=== PATIENT | male | born 1945 | race Caucasian/White ===

== ENCOUNTER 2017-12-21 10:37 | Outpatient (RCR) | payer MEDICARE, OTHER, SELFPAY ==
[2017-11-22 09:16] LABS: Prothrombin Time Fingerstick 38.9 SEC (11.9-14.4)
[2017-12-07 09:51] LABS: Prothrombin Time Fingerstick 48.5 SEC (11.9-14.4)
[2017-12-07 12:18] LABS: International Normalized Ratio 3.4; Prothrombin Time (Protime)PT. 33.1 SECONDS (11.7-14.9)
[2017-12-21 12:14] LABS: International Normalized Ratio 2.9; Prothrombin Time (Protime)PT. 29.5 SECONDS (11.7-14.9)
== END 2017-12-21 11:00 | disposition home or self-care (01) ==
LOC: MTLAB 10:37
PROVIDERS: Family Provider Family Medicine; PCP Family Medicine; Visit Provider Internal Medicine Cardiovascular Disease
DX: Z79.01 Long term (current) use of anticoagulants (principal); Z95.2 Presence of prosthetic heart valve
CPT/HCPCS: 36415; 36416; 85610

== ENCOUNTER 2018-01-10 09:26 | Outpatient (RCR) | payer MEDICARE, OTHER, SELFPAY ==
[2018-01-10 12:20] LABS: International Normalized Ratio 2.8; Prothrombin Time (Protime)PT. 28.4 SECONDS (11.7-14.9)
== END 2018-01-10 15:00 | disposition home or self-care (01) ==
LOC: MTLAB 09:26
PROVIDERS: Family Provider Family Medicine; PCP Family Medicine; Visit Provider Internal Medicine Cardiovascular Disease
DX: Z79.01 Long term (current) use of anticoagulants (principal)
CPT/HCPCS: 36415; 85610

== ENCOUNTER 2018-01-28 22:32 | Emergency (ER) | payer MEDICARE, OTHER, SELFPAY ==
[2018-01-28 22:33] VITALS: BP 149/77; PULSE 56; RESP 16; TEMP 36.9; O2SAT 98; BMI 24.3
[2018-01-28] MEDS: Phenylephrine 0.25% 15 ML NASAL.SRY 2 SPRAY NS (22:54)
--- NOTE | 2018-01-28 23:20 | ED.VISSUMM ---
- ER Visit Summary Date of Service: 01/28/18 Chief Complaint: Bleeding tongue History of Present Illness: The patient is a 72 M who bit his tongue about an hour prior to arrival. He is on Coumadin for an artificial heart valve. His last INR was 2.7 earlier this month. They could not get the bleeding to stop at home. He denies any pain Physical Examination: Signs are reviewed. HEENT exam reveals oozing of blood from the right distal tongue. Test Results: None obtained Emergency Department Course and Treatment: Initial pressure was held on the tongue. It was still oozing some blood so phenylephrine was then applied to gauze and placed on the time. It does look better. He is still oozing a mild amount. Patient will be discharged to use ice as well as teabags at home. He will follow-up with his PCP Treatment Plan: Disposition: Discharge Impression: Bleeding tongue This note was generated with [employer] dictation software. It may contain incorrect words, spelling, and punctuation that were not noted in review of the chart prior to signing ED Disposition - Plan for ED Patient: Chief Complaint: Other, Pain/Inj Referrals: Kameron Hayes MD [Primary Care Provider] -
--- NOTE | 2018-01-28 23:22 | ED.DEP ---
ED Disposition - Plan for ED Patient: Disposition: Home or Assisted Living Chief Complaint: Other, Pain/Inj Instructions: Taking?Coumadin Referrals: Kameron Hayes MD [Primary Care Provider] - Additional Instructions: Use ice as well as tea bags on the area to help stop bleeding
--- NOTE | 2018-01-28 23:49 | ED.RN ---
DISCHARGE INSTRUCTIONS GIVEN TO AND REVIEWED WITH PATIENT, PATIENT DENIES QUESTIONS OR CONCERNS AND VOICES UNDERSTANDING OF DISCHARGE INSTRUCTIONS. PT AMBULATES OUT OF ROOM WITHOUT DIFFICULTY.
== END 2018-01-28 23:49 | disposition home or self-care (01) ==
PROVIDERS: Emergency Provider Emergency Medicine; Family Provider Family Medicine; PCP Family Medicine
DX: R58 Hemorrhage, not elsewhere classified (principal); Z95.2 Presence of prosthetic heart valve; Z79.01 Long term (current) use of anticoagulants; I10 Essential (primary) hypertension; E78.00 Pure hypercholesterolemia, unspecified; K21.9 Gastro-esophageal reflux disease without esophagitis
CPT/HCPCS: 99282

== ENCOUNTER 2018-02-07 08:48 | Outpatient (RCR) | payer MEDICARE, OTHER, SELFPAY ==
[2018-02-07 10:39] LABS: International Normalized Ratio 2.6; Prothrombin Time (Protime)PT. 28.2 SECONDS (11.7-14.9)
== END 2018-02-07 09:00 | disposition home or self-care (01) ==
LOC: MTLAB 08:48
PROVIDERS: Family Provider Family Medicine; PCP Family Medicine; Visit Provider Internal Medicine Cardiovascular Disease
DX: Z79.01 Long term (current) use of anticoagulants (principal); Z95.2 Presence of prosthetic heart valve
CPT/HCPCS: 36415; 85610

== ENCOUNTER 2018-03-07 09:31 | Outpatient (RCR) | payer MEDICARE, OTHER, SELFPAY ==
[2018-03-07 12:22] LABS: International Normalized Ratio 2.6; Prothrombin Time (Protime)PT. 28.2 SECONDS (11.7-14.9)
== END 2018-03-07 10:00 | disposition home or self-care (01) ==
LOC: MTLAB 09:31
PROVIDERS: Family Provider Family Medicine; PCP Family Medicine; Visit Provider Internal Medicine Cardiovascular Disease
DX: Z79.01 Long term (current) use of anticoagulants (principal); Z95.2 Presence of prosthetic heart valve
CPT/HCPCS: 36415; 85610

== ENCOUNTER 2018-04-04 09:30 | Outpatient (RCR) | payer MEDICARE, OTHER, SELFPAY ==
[2018-04-04 12:45] LABS: Prothrombin Time (Protime)PT. 31.5 SECONDS (11.7-14.9)
== END 2018-04-04 10:00 | disposition home or self-care (01) ==
LOC: MTLAB 09:30
PROVIDERS: Family Provider Family Medicine; PCP Family Medicine; Visit Provider Internal Medicine Cardiovascular Disease
DX: Z79.01 Long term (current) use of anticoagulants (principal); Z95.2 Presence of prosthetic heart valve
CPT/HCPCS: 36415; 85610

== ENCOUNTER → 2018-05-03 09:22 | Outpatient (CLI) | payer MEDICARE, OTHER, SELFPAY ==
[2018-05-03 10:54] LABS: International Normalized Ratio 2.7; Prothrombin Time (Protime)PT. 28.6 SECONDS (11.7-14.9)
[2018-05-03 11:11] LABS: AST(SGOT) 37 U/L (15-37); Alanine Aminotransfer ALT/SGPT 32 U/L (16-61); Albumin, Serum 3.5 g/dL (3.2-5.0); Alkaline Phosphatase 69 U/L (45-117); Anion Gap 7 (5-15); BUN 19 mg/dL (7-18); BUN/Creat Ratio 16.7 RATIO (10-20); Calcium,Total 8.8 mg/dL (8.5-10.1); Chloride 106 mmol/L (98-107); Cholesterol 155 mg/dL (200); Creatinine, Serum 1.14 mg/dL (0.70-1.30); EST Glomerular Filtration Rate 67 mL/min (>60); Est Glom Filt Rate - Afr Amer 81 mL/min (>60); Globulin 3.7 g/dL (2.2-4.2); Glucose 85 mg/dL (74-106); High Density Lipoprotein 39 mg/dL; Potassium 4.5 mmol/L (3.5-5.1); Protein, Total 7.2 g/dL (6.4-8.2); Sodium Level 143 mmol/L (136-145); Triglycerides 218 mg/dL; Very Low Density Lipoprotein 44 mg/dL (5-40)
== END ==
PROVIDERS: Family Provider Family Medicine; PCP Family Medicine; Visit Provider Family Medicine
DX: I10 Essential (primary) hypertension (principal); E78.5 Hyperlipidemia, unspecified; Z79.01 Long term (current) use of anticoagulants; Z95.2 Presence of prosthetic heart valve
CPT/HCPCS: 36415; 80048; 80061; 80076; 85610

== ENCOUNTER 2018-05-30 08:32 | Outpatient (RCR) | payer MEDICARE, OTHER, SELFPAY ==
[2018-05-30 10:20] LABS: International Normalized Ratio 3.2; Prothrombin Time (Protime)PT. 32.7 SECONDS (11.7-14.9)
== END 2018-05-30 10:00 ==
LOC: MTLAB 08:32
PROVIDERS: Family Provider Family Medicine; PCP Family Medicine; Visit Provider Internal Medicine Cardiovascular Disease
DX: Z79.01 Long term (current) use of anticoagulants (principal); Z95.2 Presence of prosthetic heart valve
CPT/HCPCS: 36415; 85610

== ENCOUNTER 2018-06-27 08:58 | Outpatient (RCR) | payer MEDICARE, OTHER, SELFPAY ==
[2018-06-27 11:01] LABS: International Normalized Ratio 2.8; Prothrombin Time (Protime)PT. 29.3 SECONDS (11.7-14.9)
== END 2018-06-27 10:00 | disposition home or self-care (01) ==
LOC: MTLAB 08:58
PROVIDERS: Family Provider Family Medicine; PCP Family Medicine; Visit Provider Internal Medicine Cardiovascular Disease
DX: Z79.01 Long term (current) use of anticoagulants (principal); Z95.2 Presence of prosthetic heart valve
CPT/HCPCS: 36415; 85610

== ENCOUNTER 2018-07-25 08:40 | Outpatient (RCR) | payer MEDICARE, OTHER, SELFPAY ==
[2018-07-25 10:10] LABS: Prothrombin Time (Protime)PT. 31.5 SECONDS (11.7-14.9)
== END 2018-07-25 10:00 ==
LOC: MTLAB 08:40
PROVIDERS: Family Provider Family Medicine; PCP Family Medicine; Visit Provider Internal Medicine Cardiovascular Disease
DX: Z79.01 Long term (current) use of anticoagulants (principal); Z95.2 Presence of prosthetic heart valve
CPT/HCPCS: 36415; 85610

== ENCOUNTER 2018-09-20 08:46 | Outpatient (RCR) | payer MEDICARE, OTHER, SELFPAY ==
[2018-08-22 10:19] LABS: International Normalized Ratio 2.7; Prothrombin Time (Protime)PT. 28.9 SECONDS (11.7-14.9)
[2018-09-20 10:45] LABS: Prothrombin Time (Protime)PT. 31.7 SECONDS (11.7-14.9)
== END 2018-09-20 10:00 | disposition home or self-care (01) ==
LOC: MTLAB 08:46
PROVIDERS: Family Provider Family Medicine; PCP Family Medicine; Referring Provider Internal Medicine Cardiovascular Disease; Visit Provider Internal Medicine Cardiovascular Disease
DX: Z79.01 Long term (current) use of anticoagulants (principal); Z95.2 Presence of prosthetic heart valve
CPT/HCPCS: 36415; 85610

== ENCOUNTER 2018-10-19 09:36 | Outpatient (RCR) | payer MEDICARE, OTHER, SELFPAY ==
[2018-10-19 12:06] LABS: Prothrombin Time (Protime)PT. 30.9 SECONDS (11.7-14.9)
--- OUTSIDE RECORDS SUMMARY | 2018-12-14 10:49 | XMS RPT_ITS ---
:1945 Author Organization [facility] Support Name Relationship Address Phone YOLIE AYALA Unavailable [address] + [place] [address] YUDI AYALA Unavailable [address] + [place] [address] R Unavailable Unavailable Unavailable LUCY, YOLIE L Unavailable [address] + [place] [address] YUDI AYALA Unavailable [address] + [place] [address] R Unavailable Unavailable Unavailable LUCY, YOLIE L Unavailable [address] + [place] [address] YUDI AYALA Unavailable [address] + [place] [address] R Unavailable Unavailable Unavailable LUCY, YOLIE L Unavailable [address] + [place] [address] BRAYAN AYALAIAN E Unavailable [address] + [place] [address] R Unavailable Unavailable Unavailable LUCY, YOLIE L Unavailable [address] + [place] [address] LUCY YUDI E Unavailable [address] + [place] [address] R Unavailable Unavailable Unavailable LUCY, YOLIE L Unavailable [address] + [place] [address] LUCY YUDI E Unavailable [address] + [place] [address] R Unavailable Unavailable Unavailable LUCY, YOLIE L Unavailable [address] + [place] [address] LUCY YUDI E Unavailable [address] + [place] [address] R Unavailable Unavailable Unavailable LUCY, YOLIE L Unavailable [address] + [place] [address] R Unavailable Unavailable Unavailable LUCY, YOLIE L Unavailable [address] + [place] [address] R Unavailable Unavailable Unavailable LUCY, YOLIE L Unavailable [address] + [place] [address] R Unavailable Unavailable Unavailable LUCY, YOLIE L Unavailable [address] + [place] [address] R Unavailable Unavailable Unavailable LUCY, YOLIE L Unavailable [address] + [place] [address] R Unavailable Unavailable Unavailable LUCY, YOLIE L Unavailable [address] + [place] [address] R Unavailable Unavailable Unavailable LUCY, YOLIE L Unavailable [address] + [place] [address] R Unavailable Unavailable Unavailable LUCY, YOLIE L Unavailable [address] + [place] [address] R Unavailable Unavailable Unavailable LUCY, YOILE L Unavailable [address] + [place] [address] R Unavailable Unavailable Unavailable LUCY, YOLIE L Unavailable [address] + [place] [address] R Unavailable Unavailable Unavailable LUCY, YOLIE L Unavailable [address] + [place] [address] R Unavailable Unavailable Unavailable LUCY, YOLIE L Unavailable [address] + [place] [address] R Unavailable Unavailable Unavailable LUCY, YOLIE L Unavailable NA + [place], [place] R Unavailable Unavailable Unavailable LUCY, YOLIE L Unavailable NA + [place], [place] R Unavailable Unavailable Unavailable LUCY, YOLIE L Unavailable [address] + [place] [address] R Unavailable Unavailable Unavailable LUCY, YOLIE L Unavailable NA + [place], [place] R Unavailable Unavailable Unavailable LUCY, YOLIE Unavailable [address] + [place] [address] R Unavailable Unavailable Unavailable LUCY, YOLIE L Unavailable NA + [place], [place] R Unavailable Unavailable Unavailable LUCY, YOLIE Unavailable [address] + [place] [address] R Unavailable Unavailable Unavailable Care Team Providers Name Role Kameron Zaldivar Attending Unavailable Hayes, Kameron Primary Care Unavailable Moodispaw, Kameron Attending Unavailable Hayes, Kameron Referring Unavailable Hayes, Kameron Primary Care Unavailable Moodispaw, Kameron Consulting Unavailable Moodispaw, Kameron Attending Unavailable LopezPetra lee Attending Unavailable Moodispaw, Kameron Attending Unavailable Hayes, Kameron Referring Unavailable Moodispaw, Kameron Attending Unavailable Moodispaw, Kameron Referring Unavailable Hayes, Kameron Primary Care Unavailable Hayes, Kameron Attending Unavailable Moodispaw, Kameron Attending Unavailable Hayes, Kameron Primary Care Unavailable Moodispaw, Kameron Referring Unavailable Moodispaw, Kameron Attending Unavailable Moodispaw, Kameron Referring Unavailable Moodispaw, Kameron Attending Unavailable Moodispaw, Kameron Referring Unavailable Hayes, Kameron Primary Care Unavailable Hayes, Kameron Primary Care Unavailable Alessandro Tejeda Attending Unavailable Moodispaw, Kameron Attending Unavailable Moodispaw, Kameron Referring Unavailable Hayes, Kameron Primary Care Unavailable Moodispamilton, Kameron Attending Unavailable Moodispaw, Kameron Attending Unavailable Moodispaw, Kameron Referring Unavailable Hayes, Kameron Primary Care Unavailable Arielle Hernandez Attending Unavailable Dasha Leon Attending Unavailable Moodispaw, Kameron Attending Unavailable Moodispaw, Kameron Referring Unavailable Hayes, Kameron Primary Care Unavailable Petra Issa Attending Unavailable Moodispaw, Kameron Referring Unavailable Hayes, Kameron Primary Care Unavailable Hayes, Kameron Attending Unavailable Hayes, Kameron Primary Care Unavailable Moodispaw, Kameron Attending Unavailable Moodispaw, Kameron Referring Unavailable Hayes, Kameron Primary Care Unavailable Moodispaw, Kameron Attending Unavailable Moodispaw, Kameron Referring Unavailable Hayes, Kameron Primary Care Unavailable Moodispaw, Kameron Attending Unavailable Moodispaw, Kameron Referring Unavailable Hayes, Kameron Primary Care Unavailable Moodispaw, Kameron Attending Unavailable Moodispaw, Kameron Referring Unavailable Hayes, Kameron Primary Care Unavailable Moodispaw, Kameron Attending Unavailable Moodispaw, Kameron Referring Unavailable Hayes, Kameron Primary Care Unavailable Moodiscourtney, Kameron Attending Unavailable Moodispamilton, Kameron Referring Unavailable Hayes, Kameron Primary Care Unavailable Moodiscourtney, Kameron Attending Unavailable Moodispaw, Kameron Referring Unavailable Hayes, Kameron Primary Care Unavailable PROBLEMS PROBLEMS DATE TYPE CONDITION / CODE ATTENDING STATUS SOURCE 11/01/2018 Unknown I10 - Essential HayesKameron mena (primary) Community hypertension / Hospital I10(ICD-10) Repository 10/24/2018 Unknown Z79.01 - watermelon inspector Ciaraepifaniomilton Kameron Active [place] (current) use of [facility] anticoagulants / Hospital Z79.01(ICD-10) Repository 09/21/2018 Unknown 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 / Z95.2(ICD-10) Hospital Repository 05/03/2018 Unknown E78.5 - Abigail Kameron Active Alicia Hyperlipidemia, [facility] unspecified / Hospital E78.5(ICD-10) Repository 03/21/2018 Unknown I48.0 - Paroxysmal MoodisKameron valdez Active Alicia atrial fibrillation / [facility] I48.0(ICD-10) Hospital Repository 11/25/2017 Unknown I25.10 - LoaniscourtneyKameron Active Alicia Atherosclerotic heart [facility] disease of [facility] coronary artery Repository without angina pectoris / I25.10(ICD-10) 11/25/2017 Unknown Z95.1 - Presence of Ciaraepifaniomilton Kameron Active Alicia aortocoronary bypass Community graft / Z95.1(ICD-10) Hospital Repository 11/25/2017 Unknown Z98.890 - Other Kameron Neff Active [place] specified [facility] postprocedural [facility] / Z98.890(ICD-10) Repository PROCEDURES PROCEDURES No Procedure Records FoundRESULTS RESULTS BASIC METABOLIC Collected: 11/01/2018 Status: F Source: ALIC[place] PROFILE (BMP) 9:11 AM [facility] REPOSITORY TYPE CODE TESTS RESULT OUT OF RANGE REFERENCE UNITS LAB L501.0100 74-106 mg/dL Normal GLU 98 Result Comment: Please note revised GLUCOSE reference range effective 2017. LAB L501.1000 7-18 mg/dL High BUN 21 LAB L501.1100 0.70-1.30 mg/dL Normal CREAT,SERUM 1.19 Result Comment: The validity of the calculated GFR AND GFRAA in patients over 70 years has not been determined. Clinical correlation is essential. LAB L501.1110 >60 mL/min Normal EST GFR 64 Result Comment: Non- GFR Calc LAB L501.1115 >60 mL/min Normal EST GFR - AA 77 Result Comment: GFR Calc LAB L501.1300 10-20 RATIO Normal BUN/CRE 17.6 LAB L501.2200 8.5-10.1 mg/dL CA Normal 9.0 LAB L501.5300 136-145 mmol/L NA Normal 142 LAB L501.5600 3.5-5.1 mmol/L K Normal 4.7 LAB L501.5900 98-107 mmol/L CL Normal 105 LAB L501.6100 21.0-32.0 mmol/L Normal CO2 29.0 LAB L501.6200 5-15 Normal GAP 8 Performed By: #### L500.2500, L500.4100 #### [facility] [address] [place], [place], [id number] LIPID PROFILE Collected: 11/01/2018 Status: F Source: [place] 9:[address] [facility] REPOSITORY TYPE CODE TESTS RESULT OUT OF RANGE REFERENCE UNITS LAB L501.4900 200 mg/dL Normal CHOL 179 Result Comment: <200 mg/dL Desirable 200-240 mg/dL Borderline >240 mg/dL High Risk LAB L501.5000 mg/dL High TRIG 272 Result Comment: The drugs N-Acetylcysteine and Metamizole may falsely depress this assay. Serum Triglycerides Reference Interval Normal <150 mg/dL Borderline high 150 - 199 mg/dL High 200 - 499 mg/dL Very High > or = 500 mg/dL LAB L501.6400 mg/dL Low HDL 39 Result Comment: The drugs N-Acetylcysteine and Metamizole may falsely depress this assay. Reference Range HDL <40 mg/dL Low HDL Cholesterol HDL >or= 60 mg/dL High HDL Cholesterol LAB L501.6500 0-130 mg/dL Normal LDL 86 LAB L501.6600 5-40 mg/dL High VLDL 54 Performed By: #### L500.2500, L500.4100 #### [facility] [address] [place], [address] PROTHROMBIN TIME W/INR Collected: 10/19/2018 Status: F Source: ALICIA 9:[address] [facility] REPOSITORY TYPE CODE TESTS RESULT OUT OF RANGE REFERENCE UNITS LAB L300.4150 11.7-14.9 SECONDS High PROTIME 30.9 LAB L300.4200 Normal INR 3.0 Performed By: #### L300.3900 #### [facility] [address] [place], [address] PROTHROMBIN TIME W/INR Collected: 09/20/2018 Status: F Source: ALICIA 9:[address] [facility] REPOSITORY TYPE CODE TESTS RESULT OUT OF RANGE REFERENCE UNITS LAB L300.4150 11.7-14.9 SECONDS High PROTIME 31.7 LAB L300.4200 Normal INR 3.0 Performed By: #### L300.3900 #### [facility] [address] [place], [address] PROTHROMBIN TIME W/INR Collected: 08/22/2018 Status: F Source: ALIC[place] 8:[address] [facility] REPOSITORY TYPE CODE TESTS RESULT OUT OF RANGE REFERENCE UNITS LAB L300.4150 11.7-14.9 SECONDS High PROTIME 28.9 LAB L300.4200 Normal INR 2.7 Performed By: #### L300.3900 #### [facility] [address] [place], [address] PROTHROMBIN TIME W/INR Collected: 07/25/2018 Status: F Source: ALICIA 8:[address] [facility] REPOSITORY TYPE CODE TESTS RESULT OUT OF RANGE REFERENCE UNITS LAB L300.4150 11.7-14.9 SECONDS High PROTIME 31.5 LAB L300.4200 Normal INR 3.0 Performed By: #### L300.3900 #### [facility] [address] [place], [address] PROTHROMBIN TIME W/INR Collected: 06/27/2018 Status: F Source: ALICIA 9:[address] [facility] REPOSITORY TYPE CODE TESTS RESULT OUT OF RANGE REFERENCE UNITS LAB L300.4150 11.7-14.9 SECONDS High PROTIME 29.3 LAB L300.4200 Normal INR 2.8 Performed By: #### L300.3900 #### [facility] [address] [place], [address] PROTHROMBIN TIME W/INR Collected: 05/30/2018 Status: F Source: ALICIA 8:[address] [facility] REPOSITORY TYPE CODE TESTS RESULT OUT OF RANGE REFERENCE UNITS LAB L300.4150 11.7-14.9 SECONDS High PROTIME 32.7 LAB L300.4200 Normal INR 3.2 Performed By: #### L300.3900 #### [facility] [address] [place], [address] PROTHROMBIN TIME W/INR Collected: 05/03/2018 Status: F Source: ALICIA 9:[address] [facility] REPOSITORY TYPE CODE TESTS RESULT OUT OF RANGE REFERENCE UNITS LAB L300.4150 11.7-14.9 SECONDS High PROTIME 28.6 LAB L300.4200 Normal INR 2.7 Performed By: #### L300.3900 #### [facility] [address] [place], [address] BASIC METABOLIC Collected: 05/03/2018 Status: F Source: ALICIA PROFILE (BMP) 9:[address] [facility] REPOSITORY TYPE CODE TESTS RESULT OUT OF RANGE REFERENCE UNITS LAB L501.0100 74-106 mg/dL Normal GLU 85 Result Comment: Please note revised GLUCOSE reference range effective 2017. LAB L501.1000 7-18 mg/dL High BUN 19 LAB L501.1100 0.70-1.30 mg/dL Normal CREAT,SERUM 1.14 Result Comment: The validity of the calculated GFR AND GFRAA in patients over 70 years has not been determined. Clinical correlation is essential. LAB L501.1110 >60 mL/min Normal EST GFR 67 Result Comment: Non- GFR Calc LAB L501.1115 >60 mL/min Normal EST GFR - AA 81 Result Comment: GFR Calc LAB L501.1300 10-20 RATIO Normal BUN/CRE 16.7 LAB L501.2200 8.5-10.1 mg/dL CA Normal 8.8 LAB L501.5300 136-145 mmol/L NA Normal 143 LAB L501.5600 3.5-5.1 mmol/L K Normal 4.5 LAB L501.5900 98-107 mmol/L CL Normal 106 LAB L501.6100 21.0-32.0 mmol/L Normal CO2 30.0 LAB L501.6200 5-15 Normal GAP 7 Performed By: #### L500.2500, L500.3400, L500.4100 #### [facility] [address] [place], [address] LIVER PROFILE Collected: 05/03/2018 Status: F Source: [place] 9:[address] [facility] REPOSITORY TYPE CODE TESTS RESULT OUT OF RANGE REFERENCE UNITS LAB L501.1500 6.4-8.2 g/dL Normal T PROT 7.2 LAB L501.1800 3.2-5.0 g/dL Normal ALB 3.5 LAB L501.1950 2.2-4.2 g/dL Normal GLOB 3.7 LAB L501.4100 15-37 U/L Normal AST 37 LAB L501.4305 45-117 U/L Normal ALK P 69 LAB L501.4405 16-61 U/L Normal ALT 32 LAB L501.4600 0.20-1.00 mg/dL Normal T BILI 0.60 LAB L501.4700 0.00-0.30 mg/dL Normal D BILI 0.10 Performed By: #### L500.2500, L500.3400, L500.4100 #### [facility] [address] [place], [place], [id number] LIPID PROFILE Collected: 05/03/2018 Status: F Source: [place] 9:[address] [facility] REPOSITORY TYPE CODE TESTS RESULT OUT OF RANGE REFERENCE UNITS LAB L501.4900 200 mg/dL Normal CHOL 155 Result Comment: <200 mg/dL Desirable 200-240 mg/dL Borderline >240 mg/dL High Risk LAB L501.5000 mg/dL High TRIG 218 Result Comment: The drugs N-Acetylcysteine and Metamizole may falsely depress this assay. Serum Triglycerides Reference Interval Normal <150 mg/dL Borderline high 150 - 199 mg/dL High 200 - 499 mg/dL Very High > or = 500 mg/dL LAB L501.6400 mg/dL Low HDL 39 Result Comment: The drugs N-Acetylcysteine and Metamizole may falsely depress this assay. Reference Range HDL <40 mg/dL Low HDL Cholesterol HDL >or= 60 mg/dL High HDL Cholesterol LAB L501.6500 0-130 mg/dL Normal LDL 72 LAB L501.6600 5-40 mg/dL High VLDL 44 Performed By: #### L500.2500, L500.3400, L500.4100 #### [facility] [address] [place], [address] CARDIOLOGY VISIT Observed: 04/21/2018 Status: F Source: [place] REPORT 1:[address] [facility] REPOSITORY [facility] [address] [place] [address] OFFICE VISIT Date of Service: 04/21/18 MR#: [id number] Acct: [id number] Name: LALY AYALA Rep #: [id number] : 1945 Provider: Petra Issa Age/Sex: 72/M [place] [facility] [place] Signed HPI HPI Details: LALY AYALA, is a 72 M who presents to the office today for a cardiovascular follow-up. He has a history of coronary artery disease with bypass surgery in 2013. He had an LAURA to the LAD. He was also noted to have a bicuspid aortic valve and ascending aortic aneurysm, he underwent an aortic valve replacement with a 27 mm [place] valve conduit with aortic root repair. He also has a history of hypertension, hyperlipidemia and pulmonary embolism. From a cardiac standpoint he is doing well. He does not have any chest discomfort. He does not have any lightheadedness or dizziness. He does not have any chest discomfort. He does not have any palpitations that he is aware of. He does not have any irregular heartbeats. He does not have any bleeding issues. Intake Vital Signs04/21/18 Height 5 ft 10 in 04/21/18 Weight: 177 lb 04/21/18 Body Mass Index (BMI) 25.4 04/21/18 Blood Pressure 140/62 Intake Visit Reasons: 6 M Front Maker Required: No Accompanied by: Is patient in pain?: No Allergies Sulfa (Sulfonamide Antibiotics) Allergy (Verified 04/21/18 13:07) Hives Medications amoxicillin 500 mg capsule 2,000 mg PO .COMPLEX cap 11/22/17 [History Confirmed 04/21/18] aspirin 81 mg tablet,delayed release 81 mg PO QDAY 11/22/17 [History Confirmed 04/21/18] metoprolol tartrate 25 mg tablet 25 mg PO BID 11/22/17 [History Confirmed 04/21/18] pravastatin 40 mg tablet 40 mg PO QHS 11/22/17 [History Confirmed 04/21/18] acetaminophen 325 mg capsule 650 mg PO Q4H PRN 11/23/17 [History Confirmed 04/21/18] rttanfrc-xnw-akoqv acid 300 mcg-lycopene 600 mcg-lutein 300 mcg tablet 1 tab PO QDAY ea 11/23/17 [History Confirmed 04/21/18] warfarin 2 mg tablet 4 mg PO QDAY tab 11/23/17 [History Confirmed 04/21/18] pantoprazole 40 mg tablet,delayed release 40 mg PO QDAY #90 tab 01/26/18 [Rx Confirmed 04/21/18] Ejection fraction %: 60 to 64 PFSH Medical History Bicuspid aortic valve (Chronic) watermelon inspector current use of anticoagulant therapy (Chronic) Hyperlipidemia (Chronic) Atherosclerotic heart disease of [place] coronary artery without angina pectoris (Chronic) Hypertension (Chronic) Renal insufficiency (Acute) H/O echocardiogram (Resolved 11/2016) Surgical History Hx of CABG (Resolved 11/2013) S/P AVR (aortic valve replacement) (Resolved 11/2013) History of aortic root repair (Resolved 11/2013) History of cardiac catheterization (Resolved 08/2013) Hx of appendectomy (Resolved) Family History Father CAD (coronary artery disease) Hypertension Brother CAD (coronary artery disease) Social History Smoking Status: Never smoker alcohol intake: never substance use type: does not use caffeine: No what type of physical activity do you participate in: walking ROS Const Const: Negative for fatigue, weakness, weight gain, weight loss, frequent falls or excessive sweating Eyes Eyes: Negative for change in vision, blurry vision or transient loss of vision ENT ENT: Positive for balance problems (balance issure with walking 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); negative for dizziness Cardio Chest Pain: No Edema: None Muscle aches with walking: None Resp Respiratory: Positive for SOB with activity (breathing at baseline); negative for SOB at rest GI GI: Negative vomiting or vomiting blood/hematemesis : Negative for hematuria Musc Musc: Positive for balance problems (balance issure with walking 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) Skin Skin: Negative non-healing lesions or rash Neuro Neuro: Negative for weakness, frequent falls, blurry vision or dizziness Guille Hematologic/Lymphatic: Negative for easy bleeding Endo Endo: Negative for fatigue or excessive sweating Psych Psych: Negative for anxiety or depression Allergy Allergy/Immunology: Negative for rash Cardiology Exam Const Appearance: cooperative, healthy appearing, comfortable, no acute distress, well developed and well groomed Nutritional Appearance: average body habitus Orientation: alert, awake and oriented x3 Head Head: normal to inspection, normocephalic and atraumatic Ears: hearing grossly normal bilaterally Nose: external nose normal Mouth: oral mucosae normal Eyes General: appearance normal, both eyes and all related structures Eyelids: eyelids normal Conjunctivae: conjunctivae normal Pupils: PERRL Neck Neck: normal visual inspection Carotids: normal carotid upstroke Chest Chest inspection: normal inspection of the chest, symmetric chest movement and midline sternotomy incision Auscultation: Bilateral: Clear to Auscultation Cardio Palpation: normal PMI Rate: regular rate Rhythm: regular rhythm Heart sounds: S1 normal and crisp prosthetic S2 GI GI: normal to inspection, bowel sounds present, soft and no hepatosplenomegaly Neuro General: alert, awake and oriented x3 Skin Skin: no rashes or lesions noted Extremities Pulses: Normal: Right Radial Pulse, Left Radial Pulse Lower Extremity Edema: None: Bilateral vein varicosities Psych Psychological: normal affect Supplemental Info Echocardiogram in 2018 demonstrated Based upon the 2D echocardiographic and contrast enhanced images obtained there appears to be grossly normal left ventricular size, wall motion, and systolic function. The estimated ejection fraction is 60 %. The left atrium is mildly enlarged. The right atrium is mildly enlarged. Mild (1+) mitral valve insufficiency. Mild tricuspid valve insufficiency. The aortic valve is not well visualized. Trivial aortic valve insufficiency. Right ventricular systolic pressure estimated to be 28 mmHg. Transmitral diastolic flow velocities suggest diastolic dysfunction (pseudonormal pattern). Assessment AND Plan 1. Atherosclerosis of [place] coronary artery of [place] heart without angina pectoris I25.10 x1 LAURA to LAD Plan Stable, from a cardiac standpoint patient does not have any symptoms of angina. We recommend that they continue with current aggressive medical management and risk factor modification. 2. Bicuspid aortic valve Q23.[address] Ralph Valve Plan Patient will continue with antibiotic prophylaxis. He will also continue with therapeutic INR goal of 2.5-3.5. He does not have any bleeding issues. We will continue to monitor by history, exam and echocardiograms as deemed appropriate. 3. Essential hypertension I10 Plan Blood pressure is well controlled on current medications, we do not recommend any changes at this time. 4. History of aortic root repair Z98.890 resection aneurysm of the ascending aorta and aortic root replacment Plan Stable we will continue to monitor. 5. Hyperlipidemia, unspecified hyperlipidemia type E78.5 Plan Patient will continue with his moderate intensity statin. Plan Detail Follow Up 1 Year (PFM) Coding Level of Care Code Off vis,est,level 3 Diagnoses Atherosclerosis of [place] coronary artery of [place] heart without angina pectoris I25.10 [place] vs. transplanted heart: [place] heart Bicuspid aortic valve Q23.1 Essential hypertension I10 Hypertension type: essential hypertension History of aortic root repair Z98.890 Hyperlipidemia, unspecified hyperlipidemia type E78.5 Hyperlipidemia type: unspecified Coding Level of Care Code Off vis,est,level 3 Diagnoses Atherosclerosis of [place] coronary artery of [place] heart without angina pectoris I25.10 [place] vs. transplanted heart: [place] heart Bicuspid aortic valve Q23.1 Essential hypertension I10 Hypertension type: essential hypertension History of aortic root repair Z98.890 Hyperlipidemia, unspecified hyperlipidemia type E78.5 Hyperlipidemia type: unspecified 04/21/18 1354 <Electronically signed by Petra RED> Date Petra RED Cosigner Signature: Date (if applicable) CC: Kameron Hayes MD PROTHROMBIN TIME W/INR Collected: 04/04/2018 Status: F Source: ALICIA 11:[address] [facility] REPOSITORY Order Comment: Comments: Standing order for PT/INR Comments: Standing order for PT/INR TYPE CODE TESTS RESULT OUT OF RANGE REFERENCE UNITS LAB L300.4150 11.7-14.9 SECONDS High PROTIME 31.5 LAB L300.4200 Normal INR 3.0 Performed By: #### L300.3900 #### [facility] [address] [place], [address] PROTHROMBIN TIME W/INR Collected: 03/07/2018 Status: F Source: ALICIA 9:[address] [facility] REPOSITORY TYPE CODE TESTS RESULT OUT OF RANGE REFERENCE UNITS LAB L300.4150 11.7-14.9 SECONDS High PROTIME 28.2 LAB L300.4200 Normal INR 2.6 Performed By: #### L300.3900 #### [facility] [address] [facility] [place], [address] PROTHROMBIN TIME W/INR Collected: 02/07/2018 Status: F Source: ALICIA 8:[address] [facility] REPOSITORY TYPE CODE TESTS RESULT OUT OF RANGE REFERENCE UNITS LAB L300.4150 11.7-14.9 SECONDS High PROTIME 28.2 LAB L300.4200 Normal INR 2.6 Performed By: #### L300.3900 #### [facility] [address] [facility], [address] DISCHARGE INSTRUCTION Observed: 01/28/2018 Status: F Source: [place] 11:[address] [facility] REPOSITORY [facility] Medical Records Department [address] [place] [address] Discharge Instruction 01/28/18 2322 MR#: [id number] Acct: [id number] Name: LALY AYALA Rep #: [id number] : 1945 72 From: Alessandro Tejeda MD PCP: Kameron Hayes MD Status: REG ER ED Disposition - Plan for ED Patient: Disposition: Home or Assisted Living Chief Complaint: Other, Pain/Inj Instructions: Taking Coumadin Referrals: Kameron Hayes MD [Primary Care Provider] - Additional Instructions: Use ice as well as tea bags on the area to help stop bleeding What to do if you have Problems For any increased pain, shortness of breath, bleeding, nausea or vomiting, chest pain, or any unexpected problems, contact your Primary Care Provider. Call [facility] ([phone]) or report to the closest Emergency Room. Call 911 if necessary. 01/28/183 <Electronically signed by Alessandro Tejeda MD> Date Alessandro Tejeda MD Cosigner Signature (If Indicated): Date CC: Kameron Hayes MD EMERGENCY DEPARTMENT Observed: 01/28/2018 Status: F Source: [place] SUMMARY 11:[address] [facility] REPOSITORY [facility] Medical Records Department [address] [place] [address] Emergency Department Summary 01/28/18 2320 MR#: [id number] Acct: [id number] Name: LALY AYALA Rep #: [id number] : 1945 72 From: Alessandro Tejeda MD PCP: Kameron Hayes MD Status: REG ER - ER Visit Summary Date of Service: 01/28/18 Chief Complaint: Bleeding tongue History of Present Illness: The patient is a 72 M who bit his tongue about an hour prior to arrival. He is on Coumadin for an artificial heart valve. His last INR was 2.7 earlier this month. They could not get the bleeding to stop at home. He denies any pain Physical Examination: Signs are reviewed. HEENT exam reveals oozing of blood from the right distal tongue. Test Results: None obtained Emergency Department Course and Treatment: Initial pressure was held on the tongue. It was still oozing some blood so phenylephrine was then applied to gauze and placed on the time. It does look better. He is still oozing a mild amount. Patient will be discharged to use ice as well as teabags at home. He will follow-up with his PCP Treatment Plan: Disposition: Discharge Impression: Bleeding tongue This note was generated with Spottly dictation software. It may contain incorrect words, spelling, and punctuation that were not noted in review of the chart prior to signing ED Disposition - Plan for ED Patient: Chief Complaint: Other, Pain/Inj Referrals: Kameron Hayes MD [Primary Care Provider] - What to do if you have Problems For any increased pain, shortness of breath, bleeding, nausea or vomiting, chest pain, or any unexpected problems, contact your Primary Care Provider. Call [facility] ([phone]) or report to the closest Emergency Room. Call 911 if necessary. 01/28/18 2322 <Electronically signed by Alessandro Tejeda MD> Date Alessandro Tejeda MD Cosigner Signature (If Indicated): Date CC: Kameron Hayes MD PROTHROMBIN TIME W/INR Collected: 01/10/2018 Status: F Source: [place] 9:[address] [facility] REPOSITORY TYPE CODE TESTS RESULT OUT OF RANGE REFERENCE UNITS LAB L300.4150 11.7-14.9 SECONDS High PROTIME 28.4 LAB L300.4200 Normal INR 2.8 Performed By: #### L300.3900 #### [facility] [address] [place], [address] PROTHROMBIN TIME W/INR Collected: 12/21/2017 Status: F Source: [place] 10:[address] [facility] REPOSITORY TYPE CODE TESTS RESULT OUT OF RANGE REFERENCE UNITS LAB L300.4150 11.7-14.9 SECONDS High PROTIME 29.5 LAB L300.4200 Normal INR 2.9 Performed By: #### L300.3900 #### [facility] [address] [place], [address] ECHOCARDIOGRAM COMPLETE Observed: 12/12/2017 Status: F Source: [place] 5:[address] [facility] REPOSITORY [facility] Cardiovascular Services [address] [place] [address] Echo Complete 12/12/17 1249 MR#: [id number] Acct: [id number] Name: LALY AYALA Rep #: [id number] : 1945 72 From: Kameron Neff MD Attending Dr: Kameron Neff MD Status: REG CLI Ordering Dr: Kameron Neff MD Date: 12/12/17 Location: CVS Sex: M C Admitted: Reason For Study: AV Replacement Eval Procedure This was a 2D Doppler, Color Flow transthoracic echocardiogram. The exam was of poor technical quality due to diminished acoustic windows. The study was technically difficult. Exam performed in department. Left Ventricle Based upon the 2D echocardiographic and contrast enhanced images obtained there appears to be grossly normal left ventricular size, wall motion, and systolic function. The estimated ejection fraction is 60 %. Right Ventricle Normal RV size. Normal systolic function. Atria The left atrium is mildly enlarged. The right atrium is mildly enlarged. No doppler evidence for ASD. Mitral Valve There is no mitral annular calcification. Normal mitral valve. Mild (1+) mitral valve insufficiency. Tricuspid Valve Normal tricuspid valve. Mild tricuspid valve insufficiency. Right ventricular systolic pressure estimated to be 28 mmHg. Aortic Valve The aortic valve is not well visualized. Trivial aortic valve insufficiency. Pulmonic Valve The pulmonic valve is not well visualized. Great Vessels Normal sized aortic root. Pericardium/Pleural No pericardial effusion. MMode/2D Measurements AND Calculations LVIDd: 4.0 cm IVSd: 1.8 cm LVOT diam: 2.0 cm LVIDs: 2.7 cm LVPWd: 1.4 cm LVOT area: 3.0 cm2 RVDd: 3.9 cm FS: 31.4 % Ao root diam: 3.0 cm LAV(MOD-bp): 71.7 ml LA A4 area: 23.8 cm2 LAV(MOD-bp) Indexed: 36.4 ml/m2 LAV(MOD-sp2): 73.6 ml LAV(MOD-sp4): 69.6 ml RA A4 area: 19.0 cm2 Time Measurements MV dec time: 0.34 sec Doppler Measurements AND Calculations MV E max jeffrey: 74.4 cm/sec Lat Peak E' Jeffrey: 10.0 cm/sec Med Peak E' Jeffrey: 6.5 cm/sec MV A max jeffrey: 67.9 cm/sec E/E' lat: 7.4 E/E' med: 11.5 MV E/A: 1.1 MV V2 max: 71.3 cm/sec MV P1/2t max jeffrey: 71.3 cm/sec Ao V2 max: 136.1 cm/sec MV max P.0 mmHg MV P1/2t: 110.8 msec Ao max P.4 mmHg MV V2 mean: 37.3 cm/sec MV dec slope: 188.3 cm/sec2 Ao V2 mean: 84.2 cm/sec MV mean P.67 mmHg MVA(P1/2t): 2.0 cm2 Ao mean P.4 mmHg MV V2 VTI: 33.2 cm Ao V2 VTI: 27.7 cm MVA(VTI): 2.7 cm2 AARON(I,D): 3.2 cm2 AARON(V,D): 2.9 cm2 LV V1 max: 130.2 cm/sec SV(LVOT): 89.0 ml PA V2 max: 91.9 cm/sec LV V1 max P.8 mmHg LV V1 mean P.3 mmHg LV V1 mean: 82.6 cm/sec LV V1 VTI: 29.4 cm TR max jeffrey: 248.4 cm/sec TR max P.7 mmHg Interpretation Summary The study was technically difficult. Based upon the 2D echocardiographic and contrast enhanced images obtained there appears to be grossly normal left ventricular size, wall motion, and systolic function. The estimated ejection fraction is 60 %. The left atrium is mildly enlarged. The right atrium is mildly enlarged. Mild (1+) mitral valve insufficiency. Mild tricuspid valve insufficiency. The aortic valve is not well visualized. Trivial aortic valve insufficiency. Right ventricular systolic pressure estimated to be 28 mmHg. Transmitral diastolic flow velocities suggest diastolic dysfunction (pseudonormal pattern). Ordering Physician: Kameron Neff Referring Physician: Kameron Neff Performed By: Derek Bhakta RCS 12/12/17 1736 Date Kameron Neff MD CC: Kameron Neff MD; Kameron Hayes MD Date Dictated: 12/12/17 1249 Date Transcribed: 12/12/17 1736 Brick Off Bearer: Signed PROTHROMBIN TIME W/INR Collected: 12/07/2017 Status: F Source: [place] 9:[address] [facility] REPOSITORY Order Comment: Result obtained is for confirmation testing of Fingerstick PT/INR Specimen PL# [id number] . 12/07/17 0950 VSICK THIS CONFIRMATION SPECIMEN RESULT IS FROM VENOUS BLOOD. TYPE CODE TESTS RESULT OUT OF RANGE REFERENCE UNITS LAB L300.4150 11.7-14.9 SECONDS High PROTIME 33.1 LAB L300.4200 Normal INR 3.4 Performed By: #### L300.3900 #### [facility] [address] [place], [address] PROTIME W/INR Collected: 12/07/2017 Status: F Source: [place] 9:[address] [facility] REPOSITORY TYPE CODE TESTS RESULT OUT OF REFERENCE UNITS RANGE LAB L9200.1001 11.9-14.4 SEC High PROTIME ISTAT 48.5 Result Comment: Reference Range 11.9 - 14.4 LAB L9200.2000 High alert INR ISTAT 4.30 Result Comment: Critical Value > 3.5 Performed By: #### L9200.0000 #### [facility] Point of Care [address] [place] [address] CARDIOLOGY VISIT Observed: 11/23/2017 Status: F Source: [place] REPORT 3:[address] [facility] REPOSITORY [facility] [address] [place] [address] OFFICE VISIT Date of Service: 11/23/17 MR#: [id number] Acct: [id number] Name: LALY AYALA Rep #: [id number] : 1945 Provider: Kameron Neff MD Age/Sex: 72/M [place] [facility] [place]: Signed HPI FORMER PATIENT OF DR. CABRERA: Details: LALY AYALA, is a 72 M who presents to the office today for outpatient cardiovascular consultation based upon a history of underlying CAD, CABG with a LAURA to the LAD, bicuspid aortic valve status post ascending aortic aneurysmal resection and aortic valve replacement with a 27 mm Saint Ralph valve conduit superimposed upon a history of hyperlipidemia, hypertension, and thromboembolic disease with pulmonary embolism. The patient has been previously followed by the former Jack Frazier III, DO. He underwent evaluation care for his cardiovascular disease in late 2012 and early 2013. Based upon medical records available for review it appears that in August 2013 he underwent a diagnostic cardiac catheterization procedure. According to the report the LAD had an 85% stenosis, the LCx was free of disease, the RCA was free of disease, there was severe aortic valve regurgitation. In November 2013 he underwent the aforementioned surgical procedure at [facility] in [place], [place] under the direction of Adelfo Hill MD. Since that time he has been followed as an outpatient. This has included follow-up outpatient visits and transthoracic echocardiograms. His last outpatient visit and transthoracic echocardiogram appears to been approximately 1 year ago in November 2016. 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 According to medical records from November 2016 it is stated that the patient had a metallic Saint Ralph valve. At the present time the patient states he is doing well and is at his baseline. He describes no symptoms of angina pectoris or congestive heart failure. He has had no issues with near syncope or syncope. There has been no unexplained fever, chills, or night sweats. He is required no additional cardiovascular testing. He recently had an INR level performed on 11/22/2017. The report was 3.4. He had an ECG today that demonstrated sinus bradycardia with a first-degree AV block. It is noted that in 2014 he had an ECG performed which suggested the patient had underlying atrial flutter. He states there was one episode of an atrial dysrhythmia that he contacted his former primary talkback host about. He notes after waiting for a period of time his symptoms appear to be absent. He stated he required no further evaluation of this issue. To the best of his knowledge she has not had any recurrent atrial dysrhythmia. Intake Vital Signs11/23/17 Height 5 ft 9 in 11/23/17 Weight: 180 lb 6 oz 11/23/17 Body Mass Index (BMI) 26.6 11/23/17 Blood Pressure 130/68 Intake Visit Reasons: FORMER PATIENT OF DR. CABRERA Allergies Sulfa (Sulfonamide Antibiotics) Allergy (Verified 09/16/13 18:45) Hives Medications amoxicillin 500 mg capsule 2,000 mg PO .COMPLEX cap 11/22/17 [History Confirmed 11/23/17] aspirin 81 mg tablet,delayed release 81 mg PO QDAY 11/22/17 [History Confirmed 11/23/17] metoprolol tartrate 25 mg tablet 25 mg PO BID 11/22/17 [History Confirmed 11/23/17] pantoprazole 40 mg tablet,delayed release 40 mg PO QDAY 11/22/17 [History Confirmed 11/23/17] pravastatin 40 mg tablet 40 mg PO QHS 11/22/17 [History Confirmed 11/23/17] acetaminophen 325 mg capsule 650 mg PO Q4H PRN 11/23/17 [History Confirmed 11/23/17] jjufdfpe-dxi-eckkp acid 300 mcg-lycopene 600 mcg-lutein 300 mcg tablet 1 tab PO QDAY ea 11/23/17 [History Confirmed 11/23/17] warfarin 2 mg tablet 4 mg PO QDAY tab 11/23/17 [History Confirmed 11/23/17] PFSH 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) Hyperlipidemia (Chronic) Atherosclerotic heart disease of [place] coronary artery without angina pectoris (Chronic) Hypertension (Chronic) Renal insufficiency (Acute) H/O echocardiogram (Resolved 11/2016) Surgical History Hx of CABG (Resolved 11/2013) S/P AVR (aortic valve replacement) (Resolved 11/2013) History of aortic root repair (Resolved 11/2013) History of cardiac catheterization (Resolved 08/2013) Hx of appendectomy (Resolved) Family History Father CAD (coronary artery disease) Hypertension Brother CAD (coronary artery disease) Social History Smoking Status: Never smoker alcohol intake: never substance use type: does not use ROS Const Const: Negative for fatigue, weakness, weight gain, weight loss, frequent falls or excessive sweating Eyes Eyes: Negative for change in vision, blurry vision or transient loss of vision ENT ENT: Negative for dizziness, Positive for balance problems (balance issure with walking 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) Cardio Chest Pain: No Palpitations: Positive for Yes (patient reports x1 year ago woke with heart out of rhythm went back to bed and was back in rhythm) Palpitations: irregular Edema: None Muscle aches with walking: None Resp Respiratory: Positive for SOB with activity (breathing at baseline); negative for SOB at rest GI GI: Negative vomiting or vomiting blood/hematemesis : Negative for hematuria Musc Musc: Positive for balance problems (balance issure with walking 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); negative for muscle aches/ myalgia, muscle weakness or joint pain Skin Skin: Negative non-healing lesions or rash Neuro Neuro: Negative for weakness, Negative for blurry vision, Negative for dizziness, Negative for lightheadedness, Negative for frequent falls, Negative for orthostatic symptoms Guille Hematologic/Lymphatic: Negative for easy bleeding Endo Endo: Negative for fatigue or excessive sweating Psych Psych: Negative for anxiety or depression Allergy Allergy/Immunology: Negative for hives, Negative for rash Cardiology Exam Const Appearance: cooperative, healthy appearing, comfortable, no acute distress, well developed and well groomed Nutritional Appearance: average body habitus Orientation: alert, awake and oriented x3 Head Head: normal to inspection, normocephalic and atraumatic Ears: hearing grossly normal bilaterally Nose: external nose normal Mouth: oral mucosae normal Eyes General: appearance normal, both eyes and all related structures Eyelids: eyelids normal Conjunctivae: conjunctivae normal Pupils: PERRL Neck Neck: normal visual inspection Carotids: normal carotid upstroke Chest Chest inspection: normal inspection of the chest and symmetric chest movement Auscultation: Bilateral: Clear to Auscultation Cardio Palpation: normal PMI Rate: regular rate Rhythm: regular rhythm Heart sounds: S1 normal and crisp prosthetic S2 GI GI: normal to inspection, bowel sounds present, soft and no hepatosplenomegaly Neuro General: alert, awake and oriented x3 Skin Skin: no rashes or lesions noted Extremities Pulses: Normal: Right Radial Pulse, Left Radial Pulse Lower Extremity Edema: None: Bilateral Psych Psychological: normal affect Assessment AND Plan 1. Atherosclerosis of [place] coronary artery of [place] heart without angina pectoris I25.10; I25.10; I25.10 Plan At the present time he does have a history of CAD as noted above. He has undergone CABG as noted above. He needs to continue risk factor evaluation care as deemed appropriate. Otherwise it does not appear he requires additional cardiovascular diagnostic studies or therapeutic intervention at this time. Orders Orders: 2. History of coronary artery bypass graft Z95.1 x1 LAURA to LAD Plan He is status post a LAURA to the LAD as noted above. He appears to be without any acute cardiovascular symptoms related to underlying CAD. He will continue risk factor evaluation and care. Orders Orders: 3. History of aortic root repair Z98.890 resection aneurysm of the ascending aorta and aortic root replacment Plan He does have a history of a bicuspid aortic valve with an associated ascending aortic aneurysm now status post repair. This will be followed by history, exam, and echocardiographic studies. 4. S/P AVR (aortic valve replacement) Z95.[address] Ralph Valve Plan Again he has a history of a bicuspid aortic valve status post aortic valve replacement as noted above with a 27 mm Saint Ralph mechanical prosthesis. On examination he has a crisp prosthetic second heart sound. He will continue [place] [employer] antibiotic prophylaxis. He will continue anticoagulant therapy. He will be followed by history, exam, and echocardiogram. Orders Orders: 5. Hyperlipidemia, unspecified hyperlipidemia type E78.5; E78.5; E78.5 Plan He has a history of hyperlipidemia. He is on lipid-lowering medication. He will continue medical management and follow-up. 6. Essential hypertension I10; I10; I10 Plan His blood pressure appears to be reasonably well controlled at this time. He will continue medical therapy and follow-up. Orders Orders: 7. jail current use of anticoagulant Z79.01 Plan He was given a standing order for PT/INR to continue to monitor his anticoagulation status with his warfarin/Coumadin therapy. Orders Orders: Plan Detail Additional Comments Overall, he will proceed as noted above. He will be scheduled for an outpatient cardiovascular visit in approximately 6 months to monitor his status. Thank you for allowing me to participate in the care of your patient. Please don't hesitate to call if any issues arise This note was generated using a voice recognition system and there may be incorrect words, spelling or punctuation that were not noted when reviewing the office note prior to saving. Follow Up 6 Months (PFM) 11/23/17 1513 <Electronically signed by Kameron Neff MD> Date Kameron Neff MD Cosigner Signature: Date (if applicable) CC: Kameron Hayes MD 12 LEAD EKG PERFORMED Observed: 11/23/2017 Status: F Source: [place] BY [facility] 1:[address] [facility] REPOSITORY [facility] [address] [place] [address] 12 Lead EKG performed by [facility] 11/23/17 1346 MR#: [id number] Acct: [id number] Name: LALY AYALA Rep #: [id number] : 1945 72 From: Kameron Neff MD Attending Dr: Kameron Neff MD Status: DEP AMB Ordering Dr: Kameron Neff MD Date: 11/23/17 [place] [facility]: M C Admitted: [facility]/12 Lead EKG performed by [facility] ECG Report Interpretation Marked sinus Bradycardia -First degree A-V block Electronically signed on 11/23/2017 at 15:00 by Kameron Neff 12/07/17 1614 Date Kameron Neff MD CC: Kameron Hayes MD Date Dictated: 11/23/17 1346 Date Transcribed: 11/23/171345 Brick Off Bearer: PM Signed PROTIME W/INR Collected: 11/22/2017 Status: F Source: [place] 9:[address] [facility] REPOSITORY TYPE CODE TESTS RESULT OUT OF REFERENCE UNITS RANGE LAB L9200.1001 11.9-14.4 SEC High PROTIME ISTAT 38.9 Result Comment: Reference Range 11.9 - 14.4 LAB L9200.2000 Normal INR ISTAT 3.40 Result Comment: Critical Value > 3.5 Performed By: #### L9200.0000 #### [facility] Point of Care [address] [address] ALLERGIES ALLERGIES DATE TYPE / CODE NAME / CODE REACTION SEVERITY SOURCE 04/21/2018 Drug Sulfa Hives Unknown [facility] Allergy/4160 (Sulfonamide Hospital 19497(SNOMED Antibiotics)/ Repository CT) [id number](RX NORM) ENCOUNTERS ENCOUNTERS ADMIT/DISCHARGE ACCOUNT ADMITTING ENCOUNTER LOCATION SOURCE NUMBER CLASS 11/01/2018 [id number] Ambulatory [place] [facility] 0 [facility] ing:PLAB Repository 10/24/2018 [id number] Ambulatory [place] Alicia 3 [facility] ing:MTLAB Repository 10/19/2018/ [id number] Ambulatory [place]ia 8 7 [facility] ing:MTLAB Repository 09/20/2018/ [id number] Ambulatory [place] 8 0 [facility] ing:MTLAB Repository 08/31/2018 [id number] Ambulatory Alicia Alicia 1 [facility] ing:MTLAB Repository 08/01/2018 [id number] Ambulatory [place] 6 [facility] ing:MTLAB Repository 07/25/2018/ [id number] Ambulatory Alicia Alicia 8 6 [facility] ing:MTLAB Repository 06/27/2018/ [id number] Ambulatory Alicia Alicia 8 0 [facility] ing:MTLAB Repository 06/08/2018 [id number] Ambulatory BMSBuilding:B [place] 4 [facility] Repository 05/30/2018/ [id number] Ambulatory [place] 8 3 [facility] ing:MTLAB Repository 05/03/2018 [id number] Ambulatory Alicia Alicia 2 [facility] ing:PLAB Repository 04/21/2018/ [id number] Ambulatory BMSBuilding:B Alic[place] 8 8 [facility] Repository 04/18/2018 [id number] Ambulatory BMS [facility] 7 [facility] Repository 04/04/2018/ [id number] Ambulatory [place] 8 0 [facility] ing:MTLAB Repository 03/31/2018 [id number] Ambulatory BMSBuilding:B [place] 5 [facility] Repository 03/07/2018/ [id number] Ambulatory Alicia [place] 8 6 [facility] ing:MTLAB Repository 02/07/2018/ [id number] Ambulatory [facility] [place] 8 2 [facility] ing:MTLAB Repository 01/28/2018/ [id number] Emergency Alicia Alicia 8 3 [facility] ing:ED Repository 01/10/2018/ [id number] Ambulatory [facility] 8 3 [facility] ing:MTLAB Repository 12/21/2017/ [id number] Ambulatory [facility] [place] 8 8 [facility] ing:MTLAB Repository 12/12/2017 [id number] Ambulatory [place] 8 [facility] ing:[facility] Repository 12/12/2017 [id number] Ambulatory BMSBuilding:W [facility] 0 [facility] Repository 12/07/2017 [id number] Ambulatory BMSBuilding:B [place] 1 [place] Repository 11/24/2017 [id number] Ambulatory BMSBuilding:B [place] 4 [facility] Repository 11/23/2017/ [id number] Ambulatory BMSBuilding:B [place] 8 3 [facility] Repository 11/22/2017 [id number] Ambulatory BMSBuilding:B [place] 0 [facility] Repository PAYERS PAYERS ENCOUNTER GUARANTOR PAYER SUBSCRIBER SOURCE 11/01/2018 LALY E Primary LALY E Alicia [id number] RICE Insurance:MEDICARE BIDDLEDOB: [facility], PART A [facility] [id number] [id number]: Number: Repository [id number] (HP) Date:2018-11-01 11/01/2018 Secondary LALY E [place] Insurance:[facility] BIDCOUNTS [facility]CLUDE [facility] [address] [id number] Hospital Number: Repository [id number] Date:1754-84-65EM [facility] [place] [address]PK: 11/01/2018 Tertiary NOT GIVENUNK [place] Insurance:SELF PAY [facility] Hospital Number: Effective Repository Date:2018-11-01 10/24/2018 LAYL E Primary LALY E Alicia [id number] RICE Insurance:MEDICARE BIDDLEDOB: [facility] [id number] [id number]: Number: Repository [id number] (HP) Date:2018-08-22 10/24/2018 Secondary LALY E [facility] [address] [id number] Hospital Number: Repository [id number] Date:9901-96-92NC [facility] [address] [address]RC: 10/24/2018 Tertiary NOT GIVENUNK [place] Insurance:SELF PAY [facility] Hospital Number: Effective Repository Date:2018-10-24 10/19/2018 LALY E Primary LALY E Alicia [id number] RICE Insurance:MEDICARE BIDDLEDOB: [facility] [id number] [id number]: Number: Repository [id number] (HP) Date:2018-08-22 10/19/2018 Secondary LALY E Alicia [facility] [place] [id number] Hospital Number: Repository [id number] Date:3698-96-86RS [facility] 384075VPXOQLL, [place] [address]PB: 10/19/2018 Tertiary NOT GIVENUNK Alicia Insurance:SELF PAY [facility] Number: Effective Repository Date:2018-09-21 09/20/2018 LALY E Primary LALY E Chandler [id number] RICE Insurance:MEDICARE BIDDLEDOB: [facility], PART A [facility] [id number] [id number]: Number: Repository [id number] (HP) Date:2018-08-22 09/20/2018 Secondary LALY E Alicia Insurance:[facility] BIDDLEDOB: [facility] CARE [address] [place] [address] [id number] Hospital Number: Repository [id number] Date:9655-43-01LX [facility] 493751CNJYWOA, [place] [address]IC: 09/20/2018 Tertiary NOT GIVENUNK Alicia Insurance:SELF PAY [facility] Number: Effective Repository Date:2018-08-22 08/31/2018 LALY E Primary LALY E Alicia [id number] RICE Insurance:MEDICARE BIDDLEDOB: [facility] PART A [facility] [id number] [id number]: Number: Repository [id number] (HP) Date:2018-07-25 08/31/2018 Secondary LALY E Chandler Insurance:[facility] BIDDLEDOB: [address] [id number] Hospital Number: Repository [id number] Date:9195-77-37[address]ZGDGNFF, [place] [address]FZ: 08/31/2018 Tertiary NOT GIVENUNK Alicia Insurance:SELF PAY [facility] Number: Effective Repository Date:2018-08-22 08/01/2018 LALY E Primary LALY E Alicia [id number] RICE Insurance:MEDICARE BIDDLEDOB: [facility] PART A [facility] [id number] [id number]: Number: Repository [id number] (HP) Date:2017-12-27 08/01/2018 Secondary LALY E Chandler Insurance:[facility] BIDDLEDOB: [facility] CARE [id number] Hospital Number: Repository [id number] Date:3869-54-15NW [facility] 093308DIQZPFH, [place] [address]ED: 08/01/2018 Tertiary NOT GIVENUNK Alicia Insurance:SELF PAY [facility] Number: Effective Repository Date:2018-07-26 07/25/2018 LALY E Primary LALY E Chandler [id number] RICE Insurance:MEDICARE BIDDLEDOB: [facility] PART A [facility] [id number] [id number]: Number: Repository [id number] () Date:2018-07-25 07/25/2018 Secondary LALY E Alicia Insurance:[facility] BIDDLEDOB: [address] [id number] Hospital Number: Repository [id number] Date:6520-39-47TY [facility] 720525YNBHMAJ, [place] [address]SU: 07/25/2018 Tertiary NOT GIVENUNK Alicia Insurance:SELF PAY [facility] Number: Effective Repository Date:2018-07-25 06/27/2018 LALY E Primary LALY E Alicia [id number] RICE Insurance:MEDICARE BIDDLEDOB: [facility] A [facility] [id number] [id number]: Number: Repository [id number] (HP) Date:2017-12-27 06/27/2018 Secondary LALY E Alicia Insurance:[facility] BIDDLEDOB: [address] [id number] Hospital Number: Repository [id number] Date:7963-99-00WJ [address]KXACCGQ, [place] [address]IH: 06/27/2018 Tertiary NOT GIVENUNK Alicia Insurance:SELF PAY [facility] Hospital Number: Effective Repository Date:2018-06-23 06/08/2018 LALY E Primary LALY E Chandler [id number] RICE Insurance:MEDICARE BIDDLEDOB: [facility] [id number] [id number]: Number: Repository [id number] (HP) Date:2017-11-23 06/08/2018 Secondary LALY E Chandler Insurance:[facility] BIDDLEDOB: [address] [id number] Hospital Number: Repository [id number] Date:2172-07-29YY [facility] 017190QPPEHNE, [place] [address]BL: 06/08/2018 Tertiary NOT GIVENUNK Alicia Insurance:SELF PAY [facility] Number: Effective Repository Date:2017-11-23 05/30/2018 LALY E Primary LALY E Alicia [id number] RICE Insurance:MEDICARE BIDDLEDOB: [facility] [id number] [id number]: Number: Repository [id number] (HP) Date:2017-12-27 05/30/2018 Secondary LALY E Chandler Insurance:[facility] BIDDLEDOB: [address] [id number] Hospital Number: Repository [id number] Date:6061-41-02OI [facility] 428135LBGRIMW, [place] [address]NF: 05/30/2018 Tertiary NOT GIVENUNK Alicia Insurance:SELF PAY [facility] Number: Effective Repository Date:2018-04-20 05/03/2018 LALY E Primary LALY E Alicia [id number] RICE Insurance:MEDICARE BIDDLEDOB: [facility] [id number] Number: Repository [id number]: [id number] [phone] (HP) Date:2018-05-03 05/03/2018 Secondary LALY E Chandler Insurance:[facility] BIDDLEDOB: [address] [id number] Hospital Number: Repository [id number] Date:0590-70-39WW [address]ZKXHEOA, [place] [address]VW: 05/03/2018 Tertiary NOT GIVENUNK Chandler Insurance:SELF PAY [facility] Number: Effective Repository Date:2018-05-03 04/21/2018 LALY E Primary LALY E Chandler [id number] RICE Insurance:MEDICARE BIDDLEDOB: [facility] [id number], [place] Number: Repository [id number]: [phone] [id number] [phone] (HP) Date:2018-02-27 04/21/2018 Secondary LALY E Alicia Insurance:[facility] BIDDLEDOB: [address] [id number] Hospital Number: Repository [id number] Date:6565-02-86IA [facility] 346375WFDFHBP, [place] [address]AW: 04/21/2018 Tertiary NOT GIVENUNK Chandler Insurance:SELF PAY [facility] Hospital Number: Effective Repository Date:2018-03-31 04/18/2018 LALY E Primary LALY E Alicia [id number] RICE Insurance:MEDICARE BIDDLEDOB: [facility] [id number] [id number]: Number: Repository [id number] (HP) Date:2018-04-18 04/18/2018 Secondary LALY E Alicia Insurance:[facility] BIDDLEDOB: [address] [id number] Hospital Number: Repository [id number] Date:2311-04-73UB [facility] 578055EUKOXJP, [place] [address]HM: 04/18/2018 Tertiary NOT GIVENUNK Chandler Insurance:SELF PAY [facility] Hospital Number: Effective Repository Date:2018-04-18 04/04/2018 LALY E Primary LALY E Chandler [id number] RICE Insurance:MEDICARE BIDDLEDOB: [facility] A [facility] [id number] Hospital [place] [address]Kbt: Number: Repository [id number] (HP) Date:2017-12-27 04/04/2018 Secondary LALY E Alicia Insurance:[facility] BIDDLEDOB: [address] [id number] Hospital Number: Repository [id number] Date:0014-31-42LK [address]KDUREAK, [place] [address]IP: 04/04/2018 Tertiary NOT GIVENUNK Chandler Insurance:SELF PAY [facility] Number: Effective Repository Date:2018-03-21 03/31/2018 LALY E Primary LALY E Alicia [id number] RICE Insurance:MEDICARE BIDDLEDOB: [facility] [id number] [id number]: Number: Repository [id number] (HP) Date:2018-03-31 03/31/2018 Secondary LALY E Chandler Insurance:[facility] BIDDLEDOB: [address] [id number] Hospital Number: Repository [id number] Date:6488-53-54XB [address]HEZSICO, [place] [address]ZS: 03/31/2018 Tertiary NOT GIVENUNK Chandler Insurance:SELF PAY [facility] Number: Effective Repository Date:2018-03-31 03/07/2018 LALY E Primary LALY E Alicia [id number] RICE Insurance:MEDICARE BIDDLEDOB: [facility] A [facility] [id number] [id number]: Number: Repository [id number] (HP) Date:2017-12-27 03/07/2018 Secondary LALY E Chandler Insurance:[facility] BIDDLEDOB: [address] [id number] Hospital Number: Repository [id number] Date:8761-58-58RG [address]MNCFXAF, [place] [address]AV: 03/07/2018 Tertiary NOT GIVENUNK Chandler Insurance:SELF PAY [facility] Number: Effective Repository Date:2018-02-20 02/07/2018 LALY E Primary LALY E Chandler [id number] RICE Insurance:MEDICARE BIDDLEDOB: [facility] PART A [facility] [id number] Ville [address]Tel: Number: Repository [id number] (HP) Date:2017-12-27 02/07/2018 Secondary LALY E Chandler Insurance:[facility] BIDDLEDOB: [facility] CARE [address] [place] [address] [id number] Hospital Number: Repository [id number] Date:1591-76-12ST [address]TLBPTSX, [place] [address]AX: 02/07/2018 Tertiary NOT GIVENUNK Chandler Insurance:SELF PAY [facility] Number: Effective Repository Date:2018-01-19 01/28/2018 LALY E Primary LALY E Chandler [id number] RICE Insurance:MEDICARE BIDDLEDOB: [facility] A [facility] [id number] [place]ille [address]Tel: Number: Repository [id number] () Date:2018-01-28 01/28/2018 Secondary LALY E Alicia Insurance:[facility] BIDDLEDOB: [address] [id number] Hospital Number: Repository [id number] Date:9576-46-77ZR [address]POGYNFQ, [place] [address]XC: 01/28/2018 Tertiary NOT GIVENUNK Alicia Insurance:SELF PAY [facility] Number: Effective Repository Date:2018-01-28 01/10/2018 LALY E Primary LALY E Alicia [id number] RICE Insurance:MEDICARE BIDDLEDOB: [facility] PART A [facility] [id number] Ville [address]Tel: Number: Repository [id number] (HP) Date:2017-12-27 01/10/2018 Secondary LALY E Alicia [facility] [address] [id number] Hospital Number: Repository [id number] Date:2593-22-13KM [facility] 737336WCBUMMC, [place] [address]AP: 01/10/2018 Tertiary NOT GIVENUNK Alicia Insurance:SELF PAY [facility] Hospital Number: Effective Repository Date:2017-12-27 12/21/2017 LALY E Primary LALY E Chandler [id number] RICE Insurance:MEDICARE BIDDLEDOB: [facility] [id number] [id number]: Number: Repository [id number] (HP) Date:2010-05-21 12/21/2017 Secondary LALY E Chandler Insurance[facility]: [address] [id number] Hospital Number: Repository [id number] Date:5767-25-52PD [address]JOPTKNQ, [place] [address]LZ: 12/21/2017 Tertiary NOT GIVENUNK Alicia Insurance:SELF PAY [facility] Number: Effective Repository Date:2017-11-21 12/12/2017 LALY E Primary LALY E Chandler [id number] RICE Insurance:MEDICARE BIDDLEDOB: [facility] [id number] Ville [id number]: Number: Repository [id number] (HP) Date:2017-11-23 12/12/2017 Secondary LALY E Alicia [facility] [address] [id number] Hospital Number: Repository [id number] Date:5637-93-94CI [facility] 679598KTGUADA, [place] [address]DX: 12/12/2017 Tertiary NOT GIVENUNK Alicia Insurance:SELF PAY [facility] Number: Effective Repository Date:2017-11-23 12/12/2017 LALY E Primary LALY E Alicia [id number] RICE Insurance:MEDICARE BIDDLEDOB: [facility] PART A [facility] [id number] Ville [id number]: Number: Repository [id number] (HP) Date:2017-11-23 12/12/2017 Secondary LALY E Chandler Insurance:[facility] BIDDLEDOB: [facility] CARE [address] [place] [address] [id number] Hospital Number: Repository [id number] Date:7470-02-16IZ [facility] 486730CBRMLIV, [place] [address]AR: 12/12/2017 Tertiary NOT GIVENUNK Alicia Insurance:SELF PAY [facility] Number: Effective Repository Date:2017-12-12 12/07/2017 LALY E Primary LALY E Chandler [id number] RICE Insurance:MEDICARE BIDDLEDOB: [facility] PART A [facility] [id number] [place]ille [id number]: Number: Repository [id number] (HP) Date:2017-12-07 12/07/2017 Secondary LALY E Alicia Insurance:[facility] BIDDLEDOB: [address] [id number] Hospital Number: Repository [id number] Date:6062-00-26VZ [facility] 776728XDNUFWG, [place] [address]UH: 12/07/2017 Tertiary NOT GIVENUNK Chandler Insurance:SELF PAY [facility] Number: Effective Repository Date:2017-12-07 11/24/2017 Laly E Primary Laly E Alicia [id number] [place] Insurance:MEDICARE BiddleDOB: [facility] PART A [facility] [id number] [id number]: Number: Repository [id number] (HP) Date:2017-10-29 11/24/2017 Secondary Laly E Alicia Insurance:[facility]HE[facility] BiddleDOB: [facility] y Number: [id number] Hospital [id number] Repository Date:4022-70-38ZG [facility] 221888TFOKJEO, [place] [address]VS: 11/24/2017 Tertiary NOT GIVENUNK Chandler Insurance:SELF PAY [facility] Number: Effective Repository Date:2017-10-29 11/23/2017 LALY E Primary LALY E Chandler [id number] RICE Insurance:MEDICARE BIDDLEDOB: [facility] PART A [facility] [id number]: Number: Repository [id number] (HP) Date:2017-11-11 11/23/2017 Secondary LALY E Chandler Insurance:[facility] BIDDLEDOB: [facility] CARE [address] [place] [address] [id number] Hospital Number: Repository [id number] Date:7449-63-73XC [facility] 951970CBCMYHP, [place] [address]HF: 11/23/2017 Tertiary NOT GIVENUNK Alicia Insurance:SELF PAY [facility] Number: Effective Repository Date:2017-11-11 11/22/2017 LALY E Primary LALY E Alicia [id number] RICE Insurance:MEDICARE BIDDLEDOB: [facility] PART A [facility] [id number] Hospital [place] [address]Gik: Number: Repository [id number] (HP) Date:2017-11-22 11/22/2017 Secondary LALY E Alicia Insurance:[facility] BIDDLEDOB: [facility] CARE [address] [place] [address] [id number] Hospital Number: Repository [id number] Date:8067-25-79UC [facility] 363344OKAPFZD, [place] [address]GL: 11/22/2017 Tertiary NOT GIVENUNK Chandler Insurance:SELF PAY [facility] Number: Effective Repository Date:2017-11-22
== END 2018-10-19 10:00 | disposition home or self-care (01) ==
LOC: MTLAB 09:36
PROVIDERS: Family Provider Family Medicine; PCP Family Medicine; Referring Provider Internal Medicine Cardiovascular Disease; Visit Provider Internal Medicine Cardiovascular Disease
DX: Z79.01 Long term (current) use of anticoagulants (principal); Z95.2 Presence of prosthetic heart valve
CPT/HCPCS: 36415; 85610

== ENCOUNTER → 2018-11-01 09:10 | Outpatient (CLI) | payer MEDICARE, OTHER, SELFPAY ==
[2018-11-01 11:30] LABS: Anion Gap 8 (5-15); BUN 21 mg/dL (7-18); BUN/Creat Ratio 17.6 RATIO (10-20); Chloride 105 mmol/L (98-107); Cholesterol 179 mg/dL (200); Creatinine, Serum 1.19 mg/dL (0.70-1.30); EST Glomerular Filtration Rate 64 mL/min (>60); Est Glom Filt Rate - Afr Amer 77 mL/min (>60); Glucose 98 mg/dL (74-106); High Density Lipoprotein 39 mg/dL; Potassium 4.7 mmol/L (3.5-5.1); Sodium Level 142 mmol/L (136-145); Triglycerides 272 mg/dL; Very Low Density Lipoprotein 54 mg/dL (5-40)
--- OUTSIDE RECORDS SUMMARY | 2018-12-18 05:22 | XMS RPT_ITS ---
:1945 Author Organization [facility] Support Name Relationship Address Phone YOLIE AYALA Unavailable [address] + [place] [address] YUDI AYALA Unavailable Unavailable + R Unavailable Unavailable Unavailable LUCY, YOLIE L Unavailable [address] + [place] [address] LUCYYUDI REID Unavailable [address] + [place] [address] R Unavailable Unavailable Unavailable LUCY, YOLIE L Unavailable [address] + [place] [address] LUCYYUDI REID Unavailable [address] + [place] [address] R Unavailable Unavailable Unavailable LUCY, YOLIE L Unavailable [address] + [place] [address] LUCYYUDI REID Unavailable [address] + [place] [address] R Unavailable Unavailable Unavailable LUCY, YOLIE L Unavailable [address] + [place] [address] LUCYYUDI REID Unavailable [address] + [place] [address] R Unavailable Unavailable Unavailable LUCY, YOLIE L Unavailable [address] + [place] [address] LUCY, YUDI E Unavailable [address] + [place] [address] R Unavailable Unavailable Unavailable LUCY, YOLIE L Unavailable [address] + [place] [address] LUCY, YUDI E Unavailable [address] + [place] [address] R Unavailable Unavailable Unavailable LUCY, YOLIE L Unavailable [address] + [place] [address] LUCY, YUDI Starks Unavailable [address] + [place] [address] R Unavailable Unavailable Unavailable LUCY, YOLIE L Unavailable [address] + [place] [address] R Unavailable Unavailable Unavailable LUCY, YOLIE L Unavailable [address] + [place] [address] R Unavailable Unavailable Unavailable LUCY, YOLIE L Unavailable [address] + [place] [address] R Unavailable Unavailable Unavailable LUCY, YOLIE L Unavailable [address] + [place] [address] R Unavailable Unavailable Unavailable LUCY, YOLIE L Unavailable [address] + [place] [address] R Unavailable Unavailable Unavailable LUCY, YOLIE L Unavailable [address] + [place] [address] R Unavailable Unavailable Unavailable LUCY, YOLIE L Unavailable [address] + [place] [address] R Unavailable Unavailable Unavailable LUCY, YOLIE L Unavailable [address] + [place] [address] R Unavailable Unavailable Unavailable LUCY, YOLIE L Unavailable [address] + [place] [address] R Unavailable Unavailable Unavailable LUCY, YOLIE L Unavailable [address] + [place] [address] R Unavailable Unavailable Unavailable LUCY, YOLIE L Unavailable [address] + [place] [address] R Unavailable Unavailable Unavailable LUCY, YOLIE L Unavailable [address] + [place] [address] R Unavailable Unavailable Unavailable LUCY, YOLIE L Unavailable NA + [place], [place] R Unavailable Unavailable Unavailable Care Team Providers Name Role Phone Kameron Hayes Attending Unavailable Kameron Hayes Primary Care Unavailable Kameron Neff Attending Unavailable Moodispaw, Kameron Referring Unavailable Hayes, Kameron Primary Care Unavailable Hayes, Kameron Primary Care Unavailable Moodispaw, Kameron Consulting Unavailable Moodispaw, Kameron Attending Unavailable Moodispaw, Kameron Attending Unavailable Hayes, Kameron Primary Care Unavailable Moodispaw, Kameron Referring Unavailable Moodispaw, Kameron Attending Unavailable Moodispaw, Kameron Referring Unavailable Hayes, Kameron Primary Care Unavailable Hayes, Kameron Primary Care Unavailable Alessandro Tejeda Attending Unavailable Moodispaw, Kameron Attending Unavailable Moodispaw, Kameron Referring Unavailable Hayes, Kameron Primary Care Unavailable Moodispaw, Kameron Attending Unavailable Moodispaw, Kameron Attending Unavailable Moodispaw, Kameron Referring Unavailable Hayes, Kameron Primary Care Unavailable Arielle Hernandez Attending Unavailable Edward, Dasha Attending Unavailable Moodispaw, Kameron Attending Unavailable Moodispaw, Kameron Referring Unavailable Hayes, Kameron Primary Care Unavailable ePtra Issa Attending Unavailable Moodispaw, Kameron Referring Unavailable Hayes, Kameron Primary Care Unavailable Hayse, Kameron Attending Unavailable Hayes, Kameron Primary Care [...] TYPE CONDITION / CODE ATTENDING STATUS SOURCE 11/20/2018 Unknown 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 / Hospital Z79.01(ICD-10) Repository 11/01/2018 Unknown I10 - Essential Kameron Hayes (primary) Community hypertension / Hospital I10(ICD-10) Repository 09/21/2018 Unknown 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4200 High alert INR 3.8 Result Comment: CRITICAL VALUE VERIFIED. CALLED TO MICHAEL AT 'S OFFICE. 12/06/18 1421 Marito Leija. RESULTS READ BACK BY SAME. Performed By: #### L300.3900 #### [facility] [address] [place], [place], [address] PROTHROMBIN TIME W/INR Collected: 11/15/2018 Status: F Source: ALICIA 8:56 AM [facility] [place] TYPE CODE TESTS RESULT OUT OF RANGE REFERENCE UNITS LAB L300.4150 11.7-14.9 SECONDS High PROTIME 28.3 LAB L300.4200 Normal INR 2.6 Performed By: #### L300.3900 #### [facility] [address] [place], [address] BASIC METABOLIC Collected: 11/01/2018 Status: F Source: ALICIA PROFILE (BMP) 9:11 AM [facility] [place] TYPE CODE TESTS RESULT OUT OF [...] 8 Performed By: #### L500.2500, L500.4100 #### [facility] [address] [facility] [address] [place], [place], [address] LIPID PROFILE Collected: 11/01/2018 Status: F Source: WRENS 9:11 AM [facility] [place] TYPE CODE TESTS RESULT OUT OF [...] 54 Performed By: #### L500.2500, L500.4100 #### [facility] [address] [place], [place], [address] PROTHROMBIN TIME W/INR Collected: 10/19/2018 Status: F Source: WRENS 9:49 AM [facility] [place] TYPE CODE TESTS RESULT OUT OF RANGE REFERENCE UNITS LAB L300.4150 11.7-14.9 SECONDS High PROTIME 30.9 LAB L300.4200 Normal INR 3.0 Performed By: #### L300.3900 #### [facility] [address] [place], [address] PROTHROMBIN TIME W/INR Collected: 09/20/2018 Status: F Source: ALICIA 9:00 AM [facility] [place] TYPE CODE TESTS RESULT OUT OF RANGE REFERENCE UNITS LAB L300.4150 11.7-14.9 SECONDS High PROTIME 31.7 LAB L300.4200 Normal INR 3.0 Performed By: #### L300.3900 #### [facility] [place], [place], [address] PROTHROMBIN TIME W/INR Collected: 08/22/2018 Status: F Source: ALICIA 8:41 AM [facility] [place] TYPE CODE TESTS RESULT OUT OF RANGE REFERENCE UNITS LAB L300.4150 11.7-14.9 SECONDS High PROTIME 28.9 LAB L300.4200 Normal INR 2.7 Performed By: #### L300.3900 #### [facility] [address] [place], [place], [address] PROTHROMBIN TIME W/INR Collected: 07/25/2018 Status: F Source: ALICIA 8:52 AM [facility] [place] TYPE CODE TESTS RESULT OUT OF RANGE REFERENCE UNITS LAB L300.4150 11.7-14.9 SECONDS High PROTIME 31.5 LAB L300.4200 Normal INR 3.0 Performed By: #### L300.3900 #### [facility] [place], [address] PROTHROMBIN TIME W/INR Collected: 06/27/2018 Status: F Source: ALICIA 9:02 AM [facility] [place] TYPE CODE TESTS RESULT OUT OF RANGE REFERENCE UNITS LAB L300.4150 11.7-14.9 SECONDS High PROTIME 29.3 LAB L300.4200 Normal INR 2.8 Performed By: #### L300.3900 #### [facility] [place], [address] PROTHROMBIN TIME W/INR Collected: 05/30/2018 Status: F Source: ALICIA 8:39 AM [facility] [place] TYPE CODE TESTS RESULT OUT OF RANGE REFERENCE UNITS LAB L300.4150 11.7-14.9 SECONDS High PROTIME 32.7 LAB L300.4200 Normal INR 3.2 Performed By: #### L300.3900 #### [facility] [address] [place], [address] PROTHROMBIN TIME W/INR Collected: 05/03/2018 Status: F Source: ALICIA 9:23 AM [facility] [place] TYPE CODE TESTS RESULT OUT OF RANGE REFERENCE UNITS LAB L300.4150 11.7-14.9 SECONDS High PROTIME 28.6 LAB L300.4200 Normal INR 2.7 Performed By: #### L300.3900 #### [facility] [address] [place], [address] BASIC METABOLIC Collected: 05/03/2018 Status: F Source: ALICIA PROFILE (BMP) 9:23 AM [facility] [place] TYPE CODE TESTS RESULT OUT OF [...] Performed By: #### L500.2500, L500.3400, L500.4100 #### [facility] [address] [facility] [place], [place], [address] LIVER PROFILE Collected: 05/03/2018 Status: F Source: WRENS 9:23 AM [facility] [place] TYPE CODE TESTS RESULT OUT OF [...] Performed By: #### L500.2500, L500.3400, L500.4100 #### [facility] [address] [facility] [place], [place], [address] LIPID PROFILE Collected: 05/03/2018 Status: F Source: WRENS 9:23 AM [facility] [place] TYPE CODE TESTS RESULT OUT OF [...] Performed By: #### L500.2500, L500.3400, L500.4100 #### [facility] [address] [place], [address] CARDIOLOGY VISIT Observed: 04/21/2018 Status: F Source: WRENS REPORT 1:54 PM [facility] [place] [facility] [address] [place] [address] OFFICE VISIT Date of Service: 04/21/18 MR#: [id number] Acct: [id number] Name: LALY AYALA Rep #: [id number] : 1945 Provider: Petra Issa Age/Sex: 72/M Location: [facility] Status: Signed HPI HPI Details: LALY AYALA, [...] Pressure 140/62 Intake Visit Reasons: 6 M FU Supervisor Weaving Required: No Accompanied by: Is patient in [...] PO Q4H PRN 11/23/17 [History Confirmed 04/21/18] yolcmqjg-mee-rrdqr acid 300 mcg-lycopene 600 mcg-lutein 300 mcg tablet 1 tab PO QDAY ea 11/23/17 [History Confirmed 04/21/18] warfarin 2 mg tablet 4 mg PO QDAY tab 11/23/17 [History Confirmed 04/21/18] pantoprazole 40 mg tablet,delayed release 40 mg PO QDAY #90 tab 01/26/18 [Rx Confirmed 04/21/18] Ejection fraction %: 60 to 64 PFSH Medical History 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 Assessment AND Plan 1. Atherosclerosis of [place] coronary artery of [place] heart without angina pectoris I25.10 x1 LAURA [...] Code Off vis,est,level 3 Diagnoses Atherosclerosis of [place] coronary artery of [place] heart without angina pectoris I25.10 [place] vs. transplanted heart: [place] heart Bicuspid aortic valve Q23.1 Essential hypertension I10 Hypertension type: essential hypertension History of aortic root repair Z98.890 Hyperlipidemia, unspecified hyperlipidemia type E78.5 Hyperlipidemia type: unspecified Coding Level of Care Code Off vis,est,level 3 Diagnoses Atherosclerosis of [place] coronary artery of [place] heart without angina pectoris I25.10 [place] vs. transplanted heart: [place] heart Bicuspid aortic valve Q23.1 Essential hypertension I10 Hypertension type: essential hypertension History of aortic root repair Z98.890 Hyperlipidemia, unspecified hyperlipidemia type E78.5 Hyperlipidemia type: unspecified 04/21/18 1354 <Electronically signed by Petra RED> Date Petra RED Cosigner Signature: Date (if applicable) CC: Kameron Hayes MD PROTHROMBIN TIME W/INR Collected: 04/04/2018 Status: F Source: ALICIA 11:02 AM [facility] [place] Order Comment: Comments: Standing order for PT/INR Comments: Standing order for PT/INR TYPE CODE TESTS RESULT OUT OF RANGE REFERENCE UNITS LAB L300.4150 11.7-14.9 SECONDS High PROTIME 31.5 LAB L300.4200 Normal INR 3.0 Performed By: #### L300.3900 #### [facility] [address] [facility] [place], [address] PROTHROMBIN TIME W/INR Collected: 03/07/2018 Status: F Source: ALICIA 9:36 AM [facility] [place] TYPE CODE TESTS RESULT OUT OF RANGE REFERENCE UNITS LAB L300.4150 11.7-14.9 SECONDS High PROTIME 28.2 LAB L300.4200 Normal INR 2.6 Performed By: #### L300.3900 #### [facility] [address] [facility] [place], [address] PROTHROMBIN TIME W/INR Collected: 02/07/2018 Status: F Source: WRENS 8:53 AM [facility] [place] TYPE CODE TESTS RESULT OUT OF RANGE REFERENCE UNITS LAB L300.4150 11.7-14.9 SECONDS High PROTIME 28.2 LAB L300.4200 Normal INR 2.6 Performed By: #### L300.3900 #### [facility] [address] [facility] [place], [address] DISCHARGE INSTRUCTION Observed: 01/28/2018 Status: F Source: WRENS 11:23 PM [facility] [place] [facility] Medical Records Department [address] [place] [address] Discharge Instruction 01/28/18 2322 MR#: [id number] Acct: [id number] Name: LALY AYALA Rep #: [id number] : 1945 72 From: Alessandro Tejeda MD [...] problems, contact your Primary Care Provider. Call [facility] ([phone]) or report to the closest Emergency Room. Call 911 if necessary. 01/28/182322 <Electronically signed by Alessandro Tejeda MD> Date Alessandro Tejeda MD Cosigner Signature (If Indicated): Date CC: Kameron Hayes MD EMERGENCY DEPARTMENT Observed: 01/28/2018 Status: F Source: WRENS SUMMARY 11:22 PM [facility] [place] [facility] Medical Records Department [address] [place] [address] Emergency Department Summary 01/28/180 MR#: [id number] Acct: [id number] Name: LALY AYALA Rep #: [id number] : 1945 72 From: Alessandro Tejeda MD [...] Bleeding tongue This note was generated with [employer] dictation software. It may contain incorrect words, [...] your Primary Care Provider. Call [facility] ([phone]) or report to the closest Emergency Room. Call 911 if necessary. 01/28/18 5592 <Electronically signed by Alessandro Tejeda MD> Date Alessandro Tejeda MD Cosigner Signature (If Indicated): Date CC: Kameron Hayes MD PROTHROMBIN TIME W/INR Collected: 01/10/2018 Status: F Source: WRENS 9:30 AM [facility] [place] TYPE CODE TESTS RESULT OUT OF RANGE REFERENCE UNITS LAB L300.4150 11.7-14.9 SECONDS High PROTIME 28.4 LAB L300.4200 Normal INR 2.8 Performed By: #### L300.3900 #### [facility] [address] [place], [place], [address] PROTHROMBIN TIME W/INR Collected: 12/21/2017 Status: F Source: WR[place] 10:44 AM [facility] [place] TYPE CODE TESTS RESULT OUT OF RANGE REFERENCE UNITS LAB L300.4150 11.7-14.9 SECONDS High PROTIME 29.5 LAB L300.4200 Normal INR 2.9 Performed By: #### L300.3900 #### [facility] [address] [place], [address] ALLERGIES ALLERGIES DATE TYPE / CODE NAME / CODE REACTION SEVERITY SOURCE 04/21/2018 Drug Sulfa Hives Unknown [facility] Allergy/4160 (Sulfonamide Hospital 25505(SNOMED Antibiotics)/ Repository CT) [id number](RX NORM) ENCOUNTERS ENCOUNTERS ADMIT/DISCHARGE ACCOUNT ADMITTING ENCOUNTER LOCATION SOURCE NUMBER CLASS 12/06/2018 [id number] Ambulatory [facility] ing:MT[facility] Repository 11/15/2018/ [id number] Ambulatory [facility] 8 3 [facility] ing:MTLAB Repository 11/01/2018 [id number] Ambulatory [facility] 0 [facility] ing:MFPLAB Repository 10/19/2018/ [id number] Ambulatory [facility] 8 7 [facility] ing:MTLAB Repository 09/20/2018/ [id number] Ambulatory [facility] 8 0 [facility] ing:MTLAB Repository 08/31/2018 [id number] Ambulatory [facility] 1 [facility] ing:MTLAB Repository 08/01/2018 [id number] Ambulatory [facility] 6 [facility] ing:MTLAB Repository 07/25/2018/ [id number] Ambulatory [facility] 8 6 [facility] ing:MTLAB Repository 06/27/2018/ [id number] Ambulatory [facility] 8 0 [facility] 06/08/2018 [id number] Ambulatory BMSBuilding:[facility] 4 [facility] Repository 05/30/2018/ [id number] Ambulatory [facility] 8 3 [facility] ing:MTLAB Repository 05/03/2018 [id number] Ambulatory [facility] 2 [facility] ing:MFPLAB Repository 04/21/2018/ [id number] Ambulatory BMSBuilding:[facility] 8 8 [facility] Repository 04/18/2018 [id number] Ambulatory BMS [facility] 7 [facility] Repository 04/04/2018/ [id number] Ambulatory [facility] 8 0 [facility] ing:MTLAB Repository 03/31/2018 [id number] Ambulatory BMSBuilding:B [facility] 5 [facility] Repository 03/07/2018/ [id number] Ambulatory [facility] [address] [facility] ing:MTLAB Repository 02/07/2018/ [id number] Ambulatory [facility] [address] [facility] ing:MTLAB Repository 01/28/2018/ [id number] Emergency [facility] [address] [facility] ing:ED Repository 01/10/2018/ [id number] Ambulatory [facility] [address] [facility] ing:MTLAB Repository 12/21/2017/ [id number] Ambulatory [facility] [address] [facility] ing:MTLAB Repository PAYERS PAYERS ENCOUNTER GUARANTOR PAYER SUBSCRIBER SOURCE 12/06/2018 LALY E Primary LALY E [facility] [id number] RICE Insurance:MEDICARE BIDDLEDOB: [facility] [id number] [place] [address]Lcq: Number: Repository [id number] (HP) Date:2018-08-22 12/06/2018 Secondary LALY E [facility] BIDDLEDOB: [address] [id number] Hospital Number: Repository [id number] Date:7570-64-75[address], [place] [address]FL: 12/06/2018 Tertiary NOT GIVENUNK [place] Insurance:SELF PAY [facility] Number: Effective Repository Date:2018-11-20 11/15/2018 LALY E Primary LALY E [facility] [id number] RICE Insurance:MEDICARE BIDDLEDOB: [facility] A [facility] [id number] [address]Fnv: Number: Repository [id number] (HP) Date:2018-08-22 11/15/2018 Secondary LALY E [facility] [address] [id number] Hospital Number: Repository [id number] Date:4717-91-14[address], [place] [address]OI: 11/15/2018 Tertiary NOT GIVENUNK [place] Insurance:SELF PAY [facility] Number: Effective Repository Date:2018-10-24 11/01/2018 LALY E Primary LALY E [facility] [id number] RICE Insurance:MEDICARE BIDDLEDOB: [facility] A [facility] [id number] [id number]: Number: Repository [id number] (HP) Date:2018-11-01 11/01/2018 Secondary LALY E [facility] [address] [id number] Hospital Number: Repository [id number] Date:4720-57-60[address], [place] [address]WB: 11/01/2018 Tertiary NOT GIVENUNK [place] Insurance:SELF PAY [facility] Number: Effective Repository Date:2018-11-01 10/19/2018 LALY E Primary LALY E [facility] [id number] RICE Insurance:MEDICARE BIDDLEDOB: [facility] A [facility] [id number] [id number]: Number: Repository [id number] (HP) Date:2018-08-22 10/19/2018 Secondary LALY E [facility] [address] [id number] Hospital Number: Repository [id number] Date:2058-27-91[address], [place] [address]TS: 10/19/2018 Tertiary NOT GIVENUNK [place] Insurance:SELF PAY [facility] Number: Effective Repository Date:2018-09-21 09/20/2018 LALY E Primary LALY E [facility] [id number] RICE Insurance:MEDICARE BIDDLEDOB: [facility] A [facility] [id number]-[facility] [address]Zau: Number: Repository [id number] (HP) Date:2018-08-22 09/20/2018 Secondary LALY E [facility] Insurance:[facility] BIDDLEDOB: [address] [id number] Hospital Number: Repository [id number] Date:1225-81-13[address], [place] [address]BY: 09/20/2018 Tertiary NOT GIVENUNK [place] Insurance:SELF PAY [facility] Number: Effective Repository Date:2018-08-22 08/31/2018 LALY E Primary LALY E [facility] [id number] RICE Insurance:MEDICARE BIDDLEDOB: [facility] PART A [facility] [id number]-[facility] [address]Zkv: Number: Repository [id number] (HP) Date:2018-07-25 08/31/2018 Secondary LALY E [facility] Insurance:[facility] BIDDLEDOB: [address] [id number] Hospital Number: Repository [id number] Date:6868-68-81[address], [place] [address]GF: 08/31/2018 Tertiary NOT GIVENUNK [place] Insurance:SELF PAY [facility] Number: Effective Repository Date:2018-08-22 08/01/2018 LALY E Primary LALY E [place] [id number] RICE Insurance:MEDICARE BIDDLEDOB: [facility] PART A [facility] [id number]-[facility] [address]Peg: Number: Repository [id number] (HP) Date:2017-12-27 08/01/2018 Secondary LALY E [facility] Insurance:[facility] BIDDLEDOB: [address] [id number] Hospital Number: Repository [id number] Date:8746-22-38[address], [place] [address]PA: 08/01/2018 Tertiary NOT GIVENUNK [facility] Insurance:SELF PAY [facility] Number: Effective Repository Date:2018-07-26 07/25/2018 LALY E Primary LALY E [place] [id number] RICE Insurance:MEDICARE BIDDLEDOB: [facility] PART A [facility] [id number]-[facility] [address]Ggg: Number: Repository [id number] (HP) Date:2018-07-25 07/25/2018 Secondary LALY E [facility] Insurance:[facility] BIDDLEDOB: [facility] CARE [address] [place] [address] [id number] Hospital Number: Repository [id number] Date:5195-03-18ZD [facility] [address], [place] [address]NU: 07/25/2018 Tertiary NOT GIVENUNK [facility] Insurance:SELF PAY [facility] Number: Effective Repository Date:2018-07-25 06/27/2018 LALY E Primary LALY E Spearman [id number] RICE Insurance:MEDICARE BIDDLEDOB: [facility] PART A [facility] [id number] [address]Cdx: Number: Repository [id number] (HP) Date:2017-12-27 06/27/2018 Secondary LALY E Alicia Insurance:[facility] BIDDLEDOB: [facility] CARE [address] [place] [address] [id number] Hospital Number: Repository [id number] Date:2631-74-68GK [facility] 108321UZSGFHE, [place] [address]NW: 06/27/2018 Tertiary NOT GIVENUNK Alicia Insurance:SELF PAY [facility] Number: Effective Repository Date:2018-06-23 06/08/2018 LALY E Primary LALY E Alicia [id number] RICE Insurance:MEDICARE BIDDLEDOB: [facility] PART A [facility] [id number]-Lea [facility] 14[address]Dyz: Number: Repository [id number] (HP) Date:2017-11-23 06/08/2018 Secondary LALY E Alicia Insurance:[facility] BIDDLEDOB: [address] [id number] Hospital Number: Repository [id number] Date:4142-86-12XE [facility] 190599SDSWKQB, [place] [address]LP: 06/08/2018 Tertiary NOT GIVENUNK Spearman Insurance:SELF PAY [facility] Number: Effective Repository Date:2017-11-23 05/30/2018 LALY E Primary LALY E Spearman [id number] RICE Insurance:MEDICARE BIDDLEDOB: [facility] [id number]-Lea [facility] Hospital [address]Qca: Number: Repository [id number] (HP) Date:2017-12-27 05/30/2018 Secondary LALY E Alicia [facility] [address] [id number] Hospital Number: Repository [id number] Date:2619-42-26[address]PYOGK, [place] [address]BO: 05/30/2018 Tertiary NOT GIVENUNK Alicia Insurance:SELF PAY [facility] Number: Effective Repository Date:2018-04-20 05/03/2018 LALY E Primary LALY E Alicia [id number] RICE Insurance:MEDICARE BIDDLEDOB: [facility] [id number] Number: Repository [id number]: [phone] [id number] [phone] (HP) Date:2018-05-03 05/03/2018 Secondary LALY E Spearman Insurance[facility] [address] [id number] Hospital Number: Repository [id number] Date:2540-14-95OD [facility] 6212[address]OTLYRRM, [place] [address]YI: 05/03/2018 Tertiary NOT GIVENUNK Alicia Insurance:SELF PAY [facility] Number: Effective Repository Date:2018-05-03 04/21/2018 LALY E Primary LALY E Alicia [id number] RICE Insurance:MEDICARE BIDDLEDOB: [facility] [id number] Number: Repository [id number]: [phone] [id number] [phone] (HP) Date:2018-02-27 04/21/2018 Secondary LALY E Spearman Insurance:[facility] BIDDLEDOB: [address] [id number] Hospital Number: Repository [id number] Date:1348-81-48SR [facility] 084796KHSGWYM, [place] [address]MX: 04/21/2018 Tertiary NOT GIVENUNK Alicia Insurance:SELF PAY [facility] Number: Effective Repository Date:2018-03-31 04/18/2018 LALY E Primary LALY E Alicia [id number] RICE Insurance:MEDICARE BIDDLEDOB: [facility] [id number]-Lea [facility] [address]Sjf: Number: Repository [id number] (HP) Date:2018-04-18 04/18/2018 Secondary LALY E Spearman Insurance:[facility] BIDDLEDOB: [address] [id number] Hospital Number: Repository [id number] Date:0045-36-44NW [facility] 619281HLYIZYG, [place] [address]OA: 04/18/2018 Tertiary NOT GIVENUNK Alicia Insurance:SELF PAY [facility] Number: Effective Repository Date:2018-04-18 04/04/2018 LALY E Primary LALY E Spearman [id number] RICE Insurance:MEDICARE BIDDLEDOB: [facility] [id number]-Lea General Hospital [address]Vkr: Number: Repository [id number] (HP) Date:2017-12-27 04/04/2018 Secondary LALY E Spearman Insurance:[facility] BIDDLEDOB: [address] [id number] Hospital Number: Repository [id number] Date:5652-30-08WT [address]KQUQ, [place] [address]JA: 04/04/2018 Tertiary NOT GIVENUNK Spearman Insurance:SELF PAY [facility] Number: Effective Repository Date:2018-03-21 03/31/2018 LALY E Primary LALY E Spearman [id number] RICE Insurance:MEDICARE BIDDLEDOB: [facility] [id number]-Lea General Hospital [address]Qka: Number: Repository [id number] (HP) Date:2018-03-31 03/31/2018 Secondary LALY E Spearman Insurance:[facility] BIDDLEDOB: [address] [id number] Hospital Number: Repository [id number] Date:6451-63-41[address]UDWM, [place] [address]ZW: 03/31/2018 Tertiary NOT GIVENUNK Spearman Insurance:SELF PAY [facility] Number: Effective Repository Date:2018-03-31 03/07/2018 LALY E Primary LALY E Spearman [id number] RICE Insurance:MEDICARE BIDDLEDOB: [facility] [id number]-Lea [facility] Hospital [address]Ybz: Number: Repository [id number] (HP) Date:2017-12-27 03/07/2018 Secondary LALY E Spearman Insurance:[facility] BIDDLEDOB: [address] [id number] Hospital Number: Repository [id number] Date:2032-41-98EJ [address]QL[place], [place] [address]WR: 03/07/2018 Tertiary NOT GIVENUNK Spearman Insurance:SELF PAY [facility] Number: Effective Repository Date:2018-02-20 02/07/2018 LALY E Primary LALY E Alicia [id number] RICE Insurance:MEDICARE BIDDLEDOB: [facility] PART A [facility] [id number]-[facility] [address]Ozs: Number: Repository [id number] (HP) Date:2017-12-27 02/07/2018 Secondary LALY E Alicia Insurance:[facility] BIDDLEDOB: [address] [id number] Hospital Number: Repository [id number] Date:6190-87-57NU [facility] 449344PJLRBFF, [place] [address]YS: 02/07/2018 Tertiary NOT GIVENUNK Alicia Insurance:SELF PAY [facility] Number: Effective Repository Date:2018-01-19 01/28/2018 LALY E Primary LAYL E Spearman [id number] RICE Insurance:MEDICARE BIDDLEDOB: [facility] A [facility] [id number]-[facility] 133[address]Udx: Number: Repository [id number] (HP) Date:2018-01-28 01/28/2018 Secondary LALY E Spearman Insurance:[facility] BIDDLEDOB: [address] [id number] Hospital Number: Repository [id number] Date:5273-49-09JW [address]BEJEI, [place] [address]LT: 01/28/2018 Tertiary NOT GIVENUNK Spearman Insurance:SELF PAY [facility] Number: Effective Repository Date:2018-01-28 01/10/2018 LALY E Primary LALY E Alicia [id number] RICE Insurance:MEDICARE BIDDLEDOB: [facility] PART A [facility] [id number]-Lea General Hospital [address]Dgb: Number: Repository [id number] (HP) Date:2017-12-27 01/10/2018 Secondary LALY E Alicia Insurance:[facility] BIDDLEDOB: [address] [id number] Hospital Number: Repository [id number] Date:3798-17-03[address]TVWQRNV, [place] [address]QS: 01/10/2018 Tertiary NOT GIVENUNK Spearman Insurance:SELF PAY [facility] Number: Effective Repository Date:2017-12-27 12/21/2017 LALY E Primary LALY E Spearman [id number] RICE Insurance:MEDICARE BIDDLEDOB: [facility] PART A [facility] [id number]-[facility]a [facility] [address]Ehr: Number: Repository [id number] () Date:2010-05-21 12/21/2017 Secondary LALY E Alicia Insurance:[facility] BIDDLEDOB: [facility] [address]Jssmcu [id number] Hospital Number: Repository [id number] Date:9441-41-79OH [facility] 123917EQUESVW, [place] [address]EQ: 12/21/2017 Tertiary NOT GIVENUNK Alicia Insurance:SELF PAY [facility] Number: Effective Repository Date:2017-11-21
== END ==
PROVIDERS: Family Provider Family Medicine; PCP Family Medicine; Visit Provider Family Medicine
DX: I10 Essential (primary) hypertension (principal)
CPT/HCPCS: 36415; 80048; 80061

== ENCOUNTER 2018-11-15 08:53 | Outpatient (RCR) | payer MEDICARE, OTHER, SELFPAY ==
[2018-11-15 10:16] LABS: International Normalized Ratio 2.6; Prothrombin Time (Protime)PT. 28.3 SECONDS (11.7-14.9)
== END 2018-11-15 09:00 | disposition home or self-care (01) ==
LOC: MTLAB 08:53
PROVIDERS: Family Provider Family Medicine; PCP Family Medicine; Referring Provider Internal Medicine Cardiovascular Disease; Visit Provider Internal Medicine Cardiovascular Disease
DX: Z79.01 Long term (current) use of anticoagulants (principal); Z95.2 Presence of prosthetic heart valve
CPT/HCPCS: 36415; 85610

== ENCOUNTER 2018-12-13 09:44 | Outpatient (RCR) | payer MEDICARE, OTHER, SELFPAY ==
[2018-12-06 14:18] LABS: Prothrombin Time (Protime)PT. 37.8 SECONDS (11.7-14.9)
[2018-12-06 14:21] LABS: International Normalized Ratio 3.8
[2018-12-13 12:49] LABS: Prothrombin Time (Protime)PT. 35.5 SECONDS (11.7-14.9)
[2018-12-13 13:09] LABS: International Normalized Ratio 3.5
--- OUTSIDE RECORDS SUMMARY | 2019-02-10 07:47 | XMS RPT_ITS ---
:1945 Author Organization [facility] Support Name Relationship Address Phone YOLIE AYALA Unavailable [address] + [place] [address] YUDI AYALA Unavailable Unavailable + R Unavailable Unavailable Unavailable LUCY, YOLIE L Unavailable [address] + [place] [address] LUCYYUDI REID Unavailable [address] + [place] [address] R Unavailable Unavailable Unavailable LUCY, YOLIE L Unavailable [address] + [place] [address] LUCYYUDI REID Unavailable [address] + [place] [address] R Unavailable Unavailable Unavailable LCUY, YOLIE L Unavailable [address] + [place] [address] LUCYYUDI REID Unavailable [address] + [place] [address] R Unavailable Unavailable Unavailable LUCY, YOLIE L Unavailable [address] + [place] [address] LUYCYUDI REID Unavailable [address] + [place] [address] R Unavailable Unavailable Unavailable LUCY, YOLIE L Unavailable [address] + [place] [address] LUCY, YUDI E Unavailable [address] + [place] [address] R Unavailable Unavailable Unavailable LUCY, YOLIE L Unavailable [address] + [place] [address] LUCY, YUDI E Unavailable [address] + [place] [address] R Unavailable Unavailable Unavailable LUCY, YOLIE L Unavailable [address] + [place] [address] LUCY, YUDI Starks Unavailable [address] + [place] [address] R Unavailable Unavailable Unavailable LUCY, YOLIE L Unavailable [address] + [place] [address] R Unavailable Unavailable Unavailable LUCY, YOLIE L Unavailable [address] + [place] [address] R Unavailable Unavailable Unavailable LUCY, YOLIE L Unavailable [address] + [place] [address] R Unavailable Unavailable Unavailable LUCY, YOLIE L Unavailable [address] + [place] [address] R Unavailable Unavailable Unavailable LUCY, YOLIE L Unavailable [address] + [place] [address] R Unavailable Unavailable Unavailable LUCY, YOLIE L Unavailable [address] + [place] [address] R Unavailable Unavailable Unavailable LUCY, YOLIE L Unavailable [address] + [place] [address] R Unavailable Unavailable Unavailable LUCY, YOLIE L Unavailable [address] + [place] [address] R Unavailable Unavailable Unavailable LUCY, YOLIE L Unavailable [address] + [place] [address] R Unavailable Unavailable Unavailable LUCY, YOLIE L Unavailable [address] + [place] [address] R Unavailable Unavailable Unavailable LUCY, YOLIE L Unavailable [address] + [place] [address] R Unavailable Unavailable Unavailable LUCY, YOLIE L Unavailable [address] + [place] [address] R Unavailable Unavailable Unavailable LUCY, YOLIE L Unavailable NA + [place], [place] R Unavailable Unavailable Unavailable Care Team Providers Name Role Phone Kameron Hayes Attending Unavailable Kameron Hayes Primary Care Unavailable Kameron Neff Attending Unavailable [place], Kameron Referring Unavailable Ahyes, Kameron Primary Care Unavailable Hayes, Kameron Primary [...] ATTENDING STATUS SOURCE 11/20/2018 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 CALLED TO JESUS YEPEZ 12/13/18 1308 Reid Sarkar. RESULTS READ BACK BY JESUS . Performed By: #### L300.3900 #### [facility] [address] [place], [place], [address] PROTHROMBIN TIME W/INR Collected: 12/06/2018 Status: F Source: ALICIA 11:54 AM [facility] REPOSITORY TYPE CODE TESTS RESULT OUT OF REFERENCE UNITS RANGE LAB L300.4150 11.7-14.9 SECONDS High PROTIME 37.8 LAB L300.4200 High alert INR 3.8 Result Comment: CRITICAL VALUE VERIFIED. CALLED TO MICHAEL AT 'S OFFICE. 12/06/18 1421 Marito Leija. RESULTS READ BACK BY SAME. Performed By: #### L300.3900 #### [facility] [address] [place], [place], [address] PROTHROMBIN TIME W/INR Collected: 11/15/2018 Status: F Source: ALICIA 8:56 AM [facility] REPOSITORY TYPE CODE TESTS RESULT OUT OF RANGE REFERENCE UNITS LAB L300.4150 11.7-14.9 SECONDS High PROTIME 28.3 LAB L300.4200 Normal INR 2.6 Performed By: #### L300.3900 #### [facility] [address] [place], [place], [address] BASIC METABOLIC Collected: 11/01/2018 Status: F Source: ALICIA PROFILE (BMP) 9:11 AM [facility] REPOSITORY TYPE CODE TESTS RESULT OUT OF [...] 8 Performed By: #### L500.2500, L500.4100 #### [facility] [address] [place], [address] LIPID PROFILE Collected: 11/01/2018 Status: F Source: ALICIA 9:11 AM [facility] REPOSITORY TYPE CODE TESTS RESULT OUT OF [...] 54 Performed By: #### L500.2500, L500.4100 #### [facility] [address] [place], [address] PROTHROMBIN TIME W/INR Collected: 10/19/2018 Status: F Source: ALICIA 9:49 AM [facility] REPOSITORY TYPE CODE TESTS RESULT OUT OF RANGE REFERENCE UNITS LAB L300.4150 11.7-14.9 SECONDS High PROTIME 30.9 LAB L300.4200 Normal INR 3.0 Performed By: #### L300.3900 #### [facility] [facility] [place], [address] PROTHROMBIN TIME W/INR Collected: 09/20/2018 Status: F Source: PASS CHRISTIAN 9:00 AM [facility] REPOSITORY TYPE CODE TESTS RESULT OUT OF RANGE REFERENCE UNITS LAB L300.4150 11.7-14.9 SECONDS High PROTIME 31.7 LAB L300.4200 Normal INR 3.0 Performed By: #### L300.3900 #### [facility] [facility] [place], [address] PROTHROMBIN TIME W/INR Collected: 08/22/2018 Status: F Source: PASS CHRISTIAN 8:41 AM [facility] REPOSITORY TYPE CODE TESTS RESULT OUT OF RANGE REFERENCE UNITS LAB L300.4150 11.7-14.9 SECONDS High PROTIME 28.9 LAB L300.4200 Normal INR 2.7 Performed By: #### L300.3900 #### [facility] [address] [place], [address] PROTHROMBIN TIME W/INR Collected: 07/25/2018 Status: F Source: ALICIA 8:52 AM [facility] REPOSITORY TYPE CODE TESTS RESULT OUT OF RANGE REFERENCE UNITS LAB L300.4150 11.7-14.9 SECONDS High PROTIME 31.5 LAB L300.4200 Normal INR 3.0 Performed By: #### L300.3900 #### [facility] [address] [place], [address] PROTHROMBIN TIME W/INR Collected: 06/27/2018 Status: F Source: ALICIA 9:02 AM [facility] REPOSITORY TYPE CODE TESTS RESULT OUT OF RANGE REFERENCE UNITS LAB L300.4150 11.7-14.9 SECONDS High PROTIME 29.3 LAB L300.4200 Normal INR 2.8 Performed By: #### L300.3900 #### [facility] [address] [place], [address] PROTHROMBIN TIME W/INR Collected: 05/30/2018 Status: F Source: ALICIA 8:39 AM [facility] REPOSITORY TYPE CODE TESTS RESULT OUT OF RANGE REFERENCE UNITS LAB L300.4150 11.7-14.9 SECONDS High PROTIME 32.7 LAB L300.4200 Normal INR 3.2 Performed By: #### L300.3900 #### [facility] [address] [place], [address] PROTHROMBIN TIME W/INR Collected: 05/03/2018 Status: F Source: ALICIA 9:23 AM [facility] REPOSITORY TYPE CODE TESTS RESULT OUT OF RANGE REFERENCE UNITS LAB L300.4150 11.7-14.9 SECONDS High PROTIME 28.6 LAB L300.4200 Normal INR 2.7 Performed By: #### L300.3900 #### [facility] [address] [place], [address] BASIC METABOLIC Collected: 05/03/2018 Status: F Source: ALICIA PROFILE (BMP) 9:23 AM [facility] REPOSITORY TYPE CODE TESTS RESULT OUT OF [...] Performed By: #### L500.2500, L500.3400, L500.4100 #### [facility] [address] [place], [address] LIVER PROFILE Collected: 05/03/2018 Status: F Source: PASS CHRISTIAN 9:23 AM [facility] REPOSITORY TYPE CODE TESTS RESULT OUT OF [...] Performed By: #### L500.2500, L500.3400, L500.4100 #### [facility] [address] [place], [address] LIPID PROFILE Collected: 05/03/2018 Status: F Source: PASS CHRISTIAN 9:23 AM [facility] REPOSITORY TYPE CODE TESTS RESULT OUT OF [...] Performed By: #### L500.2500, L500.3400, L500.4100 #### [facility] [address] [place], [address] CARDIOLOGY VISIT Observed: 04/21/2018 Status: F Source: PASS CHRISTIAN REPORT 1:54 PM [facility] REPOSITORY [facility] [address] [place] [address] OFFICE VISIT Date of Service: 04/21/18 MR#: [id number] Acct: [id number] Name: LALY AYALA Rep #: [id number] : 1945 Provider: Petra Issa Age/Sex: 72/M Location: [facility] Status: Signed HPI HPI Details: LALY AYALA, [...] Pressure 140/62 Intake Visit Reasons: 6 M Preventive Maintenance Coordinator Required: No Accompanied by: Is patient in [...] PO Q4H PRN 11/23/17 [History Confirmed 04/21/18] egplpucs-plc-kjixp acid 300 mcg-lycopene 600 mcg-lutein 300 mcg tablet 1 tab PO QDAY ea 11/23/17 [History Confirmed 04/21/18] warfarin 2 mg tablet 4 mg PO QDAY tab 11/23/17 [History Confirmed 04/21/18] pantoprazole 40 mg tablet,delayed release 40 mg PO QDAY #90 tab 01/26/18 [Rx Confirmed 04/21/18] Ejection fraction %: 60 to 64 PFSH Medical History Bicuspid aortic valve (Chronic) retirement current use of anticoagulant therapy (Chronic) Hyperlipidemia (Chronic) Atherosclerotic heart disease of [place] coronary artery without angina pectoris (Chronic) Hypertension [...] pattern). Assessment AND Plan 1. Atherosclerosis of [place] coronary artery of [place] heart without angina pectoris I25.10 x1 LAURA [...] Code Off vis,est,level 3 Diagnoses Atherosclerosis of [place] coronary artery of [place] heart without angina pectoris I25.10 [place] vs. 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 Hyperlipidemia, unspecified hyperlipidemia type E78.5 Hyperlipidemia type: unspecified Coding Level of Care Code Off vis,est,level 3 Diagnoses Atherosclerosis of [place] coronary artery of [place] heart without angina pectoris I25.10 [place] vs. 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 Hyperlipidemia, unspecified hyperlipidemia type E78.5 Hyperlipidemia type: unspecified 04/21/18 1354 <Electronically signed by Petra RED> Date Petra Falcon Signature: Date (if applicable) CC: Kameron Hayes MD PROTHROMBIN TIME W/INR Collected: 04/04/2018 Status: F Source: ALICIA 11:02 AM [facility] REPOSITORY Order Comment: Comments: Standing order for PT/INR Comments: Standing order for PT/INR TYPE CODE TESTS RESULT OUT OF RANGE REFERENCE UNITS LAB L300.4150 11.7-14.9 SECONDS High PROTIME 31.5 LAB L300.4200 Normal INR 3.0 Performed By: #### L300.3900 #### [facility] [address] [facility] [place], [address] PROTHROMBIN TIME W/INR Collected: 03/07/2018 Status: F Source: ALICIA 9:36 AM [facility] REPOSITORY TYPE CODE TESTS RESULT OUT OF RANGE REFERENCE UNITS LAB L300.4150 11.7-14.9 SECONDS High PROTIME 28.2 LAB L300.4200 Normal INR 2.6 Performed By: #### L300.3900 #### [facility] [address] [facility] [place], [place], [address] PROTHROMBIN TIME W/INR Collected: 02/07/2018 Status: F Source: ALICIA 8:53 AM [facility] REPOSITORY TYPE CODE TESTS RESULT OUT OF RANGE REFERENCE UNITS LAB L300.4150 11.7-14.9 SECONDS High PROTIME 28.2 LAB L300.4200 Normal INR 2.6 Performed By: #### L300.3900 #### [facility] [address] [facility] [place], [address] DISCHARGE INSTRUCTION Observed: 01/28/2018 Status: F Source: ALICIA 11:23 PM [facility] REPOSITORY [facility] Medical Records Department [address] [place] [address] Discharge Instruction 01/28/18 2322 MR#: [id number] Acct: [id number] Name: LALY AYALA Rep #: [id number] : 1945 72 From: Alessandro Tejeda MD [...] your Primary Care Provider. Call [facility] ([phone]) or report to the closest Emergency Room. Call 911 if necessary. 01/28/182322 <Electronically signed by Alessandro Tejeda MD> Date Alessandro Tejeda MD Cosigner Signature (If Indicated): Date CC: Kameron Hayes MD EMERGENCY DEPARTMENT Observed: 01/28/2018 Status: F Source: PASS CHRISTIAN SUMMARY 11:22 PM [facility] REPOSITORY [facility] Medical Records Department [address] [place] [address] Emergency Department Summary 01/28/180 MR#: [id number] Acct: [id number] Name: LALY AYALA Rep #: [id number] : 1945 72 From: Alessandro Tejeda MD [...] Bleeding tongue This note was generated with Geneva Mars dictation software. It may contain incorrect words, [...] your Primary Care Provider. Call [facility] ([phone]) or report to the closest Emergency Room. Call 911 if necessary. 01/28/182 <Electronically signed by Alessandro Tejeda MD> Date Alessandro Tejeda MD Cosigner Signature (If Indicated): Date CC: Kameron Hayes MD PROTHROMBIN TIME W/INR Collected: 01/10/2018 Status: F Source: PASS CHRISTIAN 9:30 AM [facility] REPOSITORY TYPE CODE TESTS RESULT OUT OF RANGE REFERENCE UNITS LAB L300.4150 11.7-14.9 SECONDS High PROTIME 28.4 LAB L300.4200 Normal INR 2.8 Performed By: #### L300.3900 #### [facility] [address] [place], [address] PROTHROMBIN TIME W/INR Collected: 12/21/2017 Status: F Source: PASS CHRISTIAN 10:44 AM [facility] REPOSITORY TYPE CODE TESTS RESULT OUT OF RANGE REFERENCE UNITS LAB L300.4150 11.7-14.9 SECONDS High PROTIME 29.5 LAB L300.4200 Normal INR 2.9 Performed By: #### L300.3900 #### [facility] [address] [place], [address] ALLERGIES ALLERGIES DATE TYPE / CODE NAME / CODE REACTION SEVERITY SOURCE 04/21/2018 Drug Sulfa Hives Unknown [facility] Allergy/4160 (Sulfonamide Hospital 11464(SNOMED Antibiotics)/ Repository CT) [id number](RX NORM) ENCOUNTERS ENCOUNTERS ADMIT/DISCHARGE ACCOUNT ADMITTING ENCOUNTER LOCATION SOURCE NUMBER CLASS 12/13/2018 [id number] [place] [facility] ing:MTLAB Repository 11/15/2018/ [id number] Ambulatory [place] 8 3 [facility] ing:MTLAB Repository 11/01/2018 [id number] Ambulatory [place] 0 [facility] ing:MFPLAB Repository 10/19/2018/ [id number] Ambulatory [place] 7 [facility] ing:MTLAB Repository 09/20/2018/ [id number] Ambulatory [place] 8 0 [facility] ing:MTLAB Repository 08/31/2018 [id number] Amb[place] 1 [facility] ing:MTLAB Repository 08/01/2018 [id number] Ambulatory [place] 6 [facility] ing:MTLAB Repository 07/25/2018/ [id number] Ambulatory [place] 8 6 [facility] ing:MTLAB Repository 06/27/2018/ [id number] Ambulatory [place] 0 [facility] ing:MTLAB Repository 06/08/2018 [id number] Ambulatory BMSBuilding:B [place] 4 [facility] Repository 05/30/2018/ [id number] Ambulatory [place] 8 3 [facility] ing:MTLAB Repository 05/03/2018 [id number] Ambulatory [place] 2 [facility] ing:MFPLAB Repository 04/21/2018/ [id number] Ambulatory BMSBuilding:B [place] 8 8 [facility] Repository 04/18/2018 [id number] Ambulatory BMS [place] 7 [facility] Repository 04/04/2018/ [id number] Ambulatory [place] 0 [facility] ing:MTLAB Repository 03/31/2018 [id number] Ambulatory BMSBuilding:B [place] 5 [facility] Repository 03/07/2018/ [id number] Ambulatory [place] 8 6 [facility] ing:MTLAB Repository 02/07/2018/ [id number] Ambulatory [place] 8 2 [facility] ing:MTLAB Repository 01/28/2018/ [id number] Emergency [place] 8 3 [facility] ing:ED Repository 01/10/2018/ [id number] Ambulatory [place] 8 3 [facility] ing:MTLAB Repository 12/21/2017/ [id number] Ambulatory [place] 8 [facility] ing:MTLAB Repository PAYERS PAYERS ENCOUNTER GUARANTOR PAYER SUBSCRIBER SOURCE 12/13/2018 LALY E Primary LALY E [place] [id number] RICE Insurance:MEDICARE BIDDLEDOB: [facility], PART A [facility] [id number] [address]Dju: Number: Repository [id number] () Date:2018-08-22 12/13/2018 Secondary LALY E [place] Insurance:[facility] BIDDLEDOB: [facility] [address]Quuidd [id number] Hospital Number: Repository [id number] Date:4673-80-22UZ [address]QTV[place]QW, [place] [address]VK: 12/13/2018 Tertiary NOT GIVENUNK [place] Insurance:SELF PAY [facility] Number: Effective Repository Date:2018-11-20 11/15/2018 LALY E Primary LALY E [place] [id number] RICE Insurance:MEDICARE BIDDLEDOB: [facility] [id number] [address]Tel: Number: Repository [id number] (HP) Date:2018-08-22 11/15/2018 Secondary LALY E [place] [facility] [place] [id number] Hospital Number: Repository [id number] Date:4062-08-12WS [facility] [id number] [place] [address]XD: 11/15/2018 Tertiary NOT GIVENUNK [place] Insurance:SELF PAY [facility] Number: Effective Repository Date:2018-10-24 11/01/2018 LALY E Primary LALY E [place] [id number] RICE Insurance:MEDICARE BIDDLEDOB: [facility] [id number] [address]Tel: Number: Repository [id number] (HP) Date:2018-11-01 11/01/2018 Secondary LALY E [place] [facility] [address] [id number] Hospital Number: Repository [id number] Date:6443-59-11UW [facility] [address]EP[place]WS[place], [place] [address]VR: 11/01/2018 Tertiary NOT GIVENUNK [place] Insurance:SELF PAY [facility] Number: Effective Repository Date:2018-11-01 10/19/2018 LALY E Primary LALY E [place] [id number] RICE Insurance:MEDICARE BIDDLEDOB: [facility] [id number] [address]Tel: Number: Repository [id number] (HP) Date:2018-08-22 10/19/2018 Secondary LALY E [place] Insurance:[facility] BIDDLEDOB: [address] [id number] Hospital Number: Repository [id number] Date:5465-57-80JO [address], [place] [address]JY: 10/19/2018 Tertiary NOT GIVENUNK [place] Insurance:SELF PAY [facility] Number: Effective Repository Date:2018-09-21 09/20/2018 LALY E Primary LALY E [place] [id number] RICE Insurance:MEDICARE BIDDLEDOB: [facility] PART A [facility] [id number] [address]Lfk: Number: Repository [id number] (HP) Date:2018-08-22 09/20/2018 Secondary LALY E [place] Insurance:[facility] [address] [id number] Hospital Number: Repository [id number] Date:7885-29-88[address]VIHBSRX, [place] [address]FQ: 09/20/2018 Tertiary NOT GIVENUNK [place] Insurance:SELF PAY [facility] Number: Effective Repository Date:2018-08-22 08/31/2018 LALY E Primary LALY E [place] [id number] RICE Insurance:MEDICARE BIDDLEDOB: [facility] A [facility] [id number] Alamos Medical Center [address]Dwf: Number: Repository [id number] (HP) Date:2018-07-25 08/31/2018 Secondary LALY E [place] [facility]: [address] [id number] Hospital Number: Repository [id number] Date:8179-46-26[address], [place] [address]WQ: 08/31/2018 Tertiary NOT GIVENUNK [place] Insurance:SELF PAY [facility] Number: Effective Repository Date:2018-08-22 08/01/2018 LALY E Primary LALY E [place] [id number] RICE Insurance:MEDICARE BIDDLEDOB: [facility] PART A [facility] [id number] [facility] [address]Sqv: Number: Repository [id number] (HP) Date:2017-12-27 08/01/2018 Secondary LALY E [place] Insurance:[facility] BIDDLEDOB: [address] [id number] Hospital Number: Repository [id number] Date:1870-75-92JH [address] [address]EH: 08/01/2018 Tertiary NOT GIVENUNK [place] Insurance:SELF PAY [facility] Number: Effective Repository Date:2018-07-26 07/25/2018 LALY E Primary LALY E [place] [id number] RICE Insurance:MEDICARE BIDDLEDOB: [facility] A [facility] [id number] [facility] Medical Center [address]Qjs: Number: Repository [id number] (HP) Date:2018-07-25 07/25/2018 Secondary LALY E [place] Insurance:[facility] BIDDLEDOB: [address] [id number] Hospital Number: Repository [id number] Date:8479-19-67[address]RUPVXGX, [place] [address]AW: 07/25/2018 Tertiary NOT GIVENUNK [place] Insurance:SELF PAY [facility] Number: Effective Repository Date:2018-07-25 06/27/2018 LALY E Primary LALY E [place] [id number] RICE Insurance:MEDICARE BIDDLEDOB: [facility] PART A [facility] [id number] [facility] Medical Center [address]Pef: Number: Repository [id number] (HP) Date:2017-12-27 06/27/2018 Secondary LALY E [place] Insurance:[facility] BIDDLEDOB: [address] [id number] Hospital Number: Repository [id number] Date:4558-52-05IJ [address]YPR, [place] [address]AY: 06/27/2018 Tertiary NOT GIVENUNK [place] Insurance:SELF PAY [facility] Number: Effective Repository Date:2018-06-23 06/08/2018 LALY E Primary LALY E [place] [id number] RICE Insurance:MEDICARE BIDDLEDOB: [facility] [id number] [facility] [address]Cgq: Number: Repository [id number] (HP) Date:2017-11-23 06/08/2018 Secondary LALY E [place] [facility]AT[facility]NDOB: [address] [id number] Hospital Number: Repository [id number] Date:9662-10-45PJ [facility] [address]BUHJDK, [place] [address]VU: 06/08/2018 Tertiary NOT GIVENUNK [place] Insurance:SELF PAY [facility] Number: Effective Repository Date:2017-11-23 05/30/2018 LALY E Primary LALY E [place] [id number] RICE Insurance:MEDICARE BIDDLEDOB: [facility] [id number] [facility] [address]Xbd: Number: Repository [id number] (HP) Date:2017-12-27 05/30/2018 Secondary LALY E [place] Insurance:[facility] BIDDLEDOB: [address] [id number] Hospital Number: Repository [id number] Date:5833-34-82FF [facility] 519405YNCLMNR, [place] [address]MH: 05/30/2018 Tertiary NOT GIVENUNK [place] Insurance:SELF PAY [facility] Number: Effective Repository Date:2018-04-20 05/03/2018 LALY E Primary LALY E [place] [id number] RICE Insurance:MEDICARE BIDDLEDOB: [facility] [id number] Number: Repository [id number]: [phone] [id number] [phone] (HP) Date:2018-05-03 05/03/2018 Secondary LALY E [place] Insurance:[facility] BIDDLEDOB: [address] [id number] Hospital Number: Repository [id number] Date:7775-92-45FM [address]FO[place], [place] [address]RE: 05/03/2018 Tertiary NOT GIVENUNK [place] Insurance:SELF PAY [facility] Number: Effective Repository Date:2018-05-03 04/21/2018 LALY E Primary LALY E [place] [id number] RICE Insurance:MEDICARE BIDDLEDOB: [facility] [id number] Number: Repository [id number]: [phone] [id number] [phone] (HP) Date:2018-02-27 04/21/2018 Secondary LALY E [place] Insurance:[facility] BIDDLEDOB: [address] [id number] Hospital Number: Repository [id number] Date:0714-70-18UH [address]JTJJFCV, [place] [address]WX: 04/21/2018 Tertiary NOT GIVENUNK [place] Insurance:SELF PAY [facility] Number: Effective Repository Date:2018-03-31 04/18/2018 LLAY E Primary LALY E [place] [id number] RICE Insurance:MEDICARE BIDDLEDOB: [facility] [id number] [address]Jvf: Number: Repository [id number] () Date:2018-04-18 04/18/2018 Secondary LALY E [place] Insurance:[facility] BIDDLEDOB: [address] [id number] Hospital Number: Repository [id number] Date:8456-09-74IB [facility] [id number], [place] [address]CN: 04/18/2018 Tertiary NOT GIVENUNK [place] Insurance:SELF PAY [facility] Number: Effective Repository Date:2018-04-18 04/04/2018 LALY E Primary LALY E [place] [id number] RICE Insurance:MEDICARE BIDDLEDOB: [facility] PART A [facility] [id number] [facility] Medical Center [address]Jki: Number: Repository [id number] (HP) Date:2017-12-27 04/04/2018 Secondary LALY E [place] Insurance:[facility] BIDDLEDOB: [address] [id number] Hospital Number: Repository [id number] Date:2409-91-62GS [facility] 732214DERLVBD, [place] [address]JU: 04/04/2018 Tertiary NOT GIVENUNK [place] Insurance:SELF PAY [facility] Number: Effective Repository Date:2018-03-21 03/31/2018 LALY E Primary LALY E [place] [id number] RICE Insurance:MEDICARE BIDDLEDOB: [facility] PART A [facility] [id number] [id number]: Number: Repository [id number] (HP) Date:2018-03-31 03/31/2018 Secondary LALY E [place] Insurance:[facility] BIDDLEDOB: [address] [id number] Hospital Number: Repository [id number] Date:2243-40-58YQ [facility] [id number], [place] [address]TL: 03/31/2018 Tertiary NOT GIVENUNK [place] Insurance:SELF PAY [facility] Number: Effective Repository Date:2018-03-31 03/07/2018 LALY E Primary LALY E [place] [id number] RICE Insurance:MEDICARE BIDDLEDOB: [facility] PART A [facility] [id number] Alamos Medical Center [address]Dsz: Number: Repository [id number] (HP) Date:2017-12-27 03/07/2018 Secondary LALY E [place] Insurance:[facility] BIDDLEDOB: [address] [id number] Hospital Number: Repository [id number] Date:5770-94-66XA [address]FVEYWCP, [place] [address]AQ: 03/07/2018 Tertiary NOT GIVENUNK [place] Insurance:SELF PAY [facility] Number: Effective Repository Date:2018-02-20 02/07/2018 LALY E Primary LALY E [place] [id number] RICE Insurance:MEDICARE BIDDLEDOB: [facility] A [facility] [id number] [facility]amos Medical Center [address]Egk: Number: Repository [id number] (HP) Date:2017-12-27 02/07/2018 Secondary LALY E [place] [facility] [address] [id number] Hospital Number: Repository [id number] Date:6757-67-81QX [address]APJZFDE, [place] [address]GK: 02/07/2018 Tertiary NOT GIVENUNK [place] Insurance:SELF PAY [facility] Number: Effective Repository Date:2018-01-19 01/28/2018 LALY E Primary LALY E [place] [id number] RICE Insurance:MEDICARE BIDDLEDOB: [facility] PART A [facility] [id number] Alamos Medical Center [address]Czo: Number: Repository [id number] (HP) Date:2018-01-28 01/28/2018 Secondary LALY E [place] [facility] [address] [id number] Hospital Number: Repository [id number] Date:9551-11-67TZ [address]NZRLAQW, [place] [address]UE: 01/28/2018 Tertiary NOT GIVENUNK [place] Insurance:SELF PAY [facility] Number: Effective Repository Date:2018-01-28 01/10/2018 LALY E Primary LALY E [place] [id number] [place]ICE Insurance:MEDICARE BIDDLEDOB: [facility] [id number] Alamos Medical Center [address]Ljb: Number: Repository [id number] (HP) Date:2017-12-27 01/10/2018 Secondary LALY E [place] [facility] [address] [id number] Hospital Number: Repository [id number] Date:8960-77-79WJ [address]IRRNKEA, [place] [address]BE: 01/10/2018 Tertiary NOT GIVENUNK [place] Insurance:SELF PAY [facility] Number: Effective Repository Date:2017-12-27 12/21/2017 LALY E Primary LALY E [place] [id number] [place]ICE Insurance:MEDICARE BIDDLEDOB: [facility] [id number] Alamos Medical Center [address]Vrx: Number: Repository [id number] (HP) Date:2010-05-21 12/21/2017 Secondary LALY E [place] [facility] [address]Mauyty [id number] Hospital Number: Repository [id number] Date:3365-63-80XA [address]SGWQVIM, [place] [address]SV: 12/21/2017 Tertiary NOT GIVENUNK [place] Insurance:SELF PAY [facility] Number: Effective Repository Date:2017-11-21
== END 2018-12-13 11:00 | disposition home or self-care (01) ==
LOC: MTLAB 09:44
PROVIDERS: Family Provider Family Medicine; PCP Family Medicine; Referring Provider Internal Medicine Cardiovascular Disease; Visit Provider Internal Medicine Cardiovascular Disease
DX: Z79.01 Long term (current) use of anticoagulants (principal); Z95.2 Presence of prosthetic heart valve; Q23.1 Congenital insufficiency of aortic valve; Z98.890 Other specified postprocedural states
CPT/HCPCS: 36415; 85610

== ENCOUNTER 2019-01-08 15:23 | Outpatient (RCR) | payer MEDICARE, OTHER, SELFPAY ==
[2018-12-25 10:14] LABS: International Normalized Ratio 2.9; Prothrombin Time (Protime)PT. 30.6 SECONDS (11.7-14.9)
[2019-01-08 17:41] LABS: Hematocrit 47.1 % (40-54); Hemoglobin 14.2 g/dl (13.0-16.5); Mean Corp Hgb Conc 30.1 g/gl (32-36); Mean Corpuscular Hgb 28.8 pg (27.0-32.0); Mean Corpuscular Volume 95.5 fL (80-94); Mean Platelet Vol. 10.6 fl (6.2-12.0); Platelet Count 190 K/mm3 (150-450); RBC Distribution Width CV 14.1 % (11.6-14.6); Red Blood Count 4.93 M/mm3 (4.6-6.2); White Blood Count 5.2 K/mm3 (4.4-11.0)
[2019-01-08 17:45] LABS: International Normalized Ratio 2.6; Prothrombin Time (Protime)PT. 27.6 SECONDS (11.7-14.9); Scan Indicated on CBC? Y/N NO
== END 2019-01-18 14:26 | disposition home or self-care (01) ==
LOC: MTLAB 15:23
PROVIDERS: Family Provider Family Medicine; PCP Family Medicine; Referring Provider Internal Medicine Cardiovascular Disease; Visit Provider Internal Medicine Cardiovascular Disease
DX: Q23.1 Congenital insufficiency of aortic valve (principal); Z79.01 Long term (current) use of anticoagulants; Z95.2 Presence of prosthetic heart valve; Z98.890 Other specified postprocedural states
CPT/HCPCS: 36415; 85027; 85610

== ENCOUNTER 2019-02-14 09:04 | Outpatient (RCR) | payer MEDICARE, OTHER, SELFPAY ==
[2019-02-01 09:31] LABS: Prothrombin Time Fingerstick 19.7 SEC (11.9-14.4)
[2019-02-14 09:41] LABS: Prothrombin Time Fingerstick 26.8 SEC (11.9-14.4)
== END 2019-02-14 10:00 | disposition home or self-care (01) ==
LOC: MTLAB 09:04
PROVIDERS: Family Provider Family Medicine; PCP Family Medicine; Referring Provider Internal Medicine Cardiovascular Disease; Visit Provider Internal Medicine Cardiovascular Disease
DX: Q23.1 Congenital insufficiency of aortic valve (principal); Z79.01 Long term (current) use of anticoagulants; Z95.2 Presence of prosthetic heart valve; Z98.890 Other specified postprocedural states
CPT/HCPCS: 36416; 85610

== ENCOUNTER → 2019-02-19 08:27 | Outpatient (CLI) | payer MEDICARE, OTHER, SELFPAY ==
[2019-02-19 10:42] LABS: Cholesterol 159 mg/dL (200); High Density Lipoprotein 50 mg/dL; Triglycerides 128 mg/dL; Very Low Density Lipoprotein 26 mg/dL (5-40)
== END ==
PROVIDERS: Family Provider Family Medicine; PCP Family Medicine; Visit Provider Family Medicine
DX: Z00.00 Encounter for general adult medical examination without abnormal findings (principal); E78.5 Hyperlipidemia, unspecified
CPT/HCPCS: 36415; 80061

== ENCOUNTER → 2019-02-23 10:44 | Outpatient (CLI) | payer MEDICARE, OTHER, SELFPAY ==
--- NOTE | 2019-02-23 10:46 | ECHOD_ITS ---
Reason For Study: AVR, Subtherapeutic INR, Infection Procedure This was a 2D Doppler, Color Flow transthoracic echocardiogram. The study was technically difficult. Exam performed in department. Left Ventricle Normal LV size. Left ventricular systolic function is normal. The estimated ejection fraction is 65 %. No regional wall motion abnormalities noted. Right Ventricle Normal RV size. Normal systolic function. Atria The left atrium is mildly enlarged. Normal right atrium. No doppler evidence for ASD. Mitral Valve There is no mitral annular calcification. Normal mitral valve. Mild (1+) mitral valve insufficiency. Tricuspid Valve Normal tricuspid valve. Mild tricuspid valve insufficiency. Right ventricular systolic pressure estimated to be 27 mmHg. Aortic Valve Stable appearing mechanical aortic valve apparatus. Trivial transvalvular insufficiency of the aortic valve. Pulmonic Valve The pulmonic valve is not well visualized. Great Vessels Normal sized aortic root. Pericardium/Pleural No pericardial effusion. MMode/2D Measurements & Calculations LVIDd: 5.4 cm IVSd: 1.2 cm LVOT diam: 2.0 cm LVIDs: 3.6 cm LVPWd: 0.98 cm LVOT area: 3.2 cm2 RVDd: 4.9 cm FS: 33.0 % Ao root diam: 3.3 cm LAV(MOD-bp): 52.9 ml LVAd ap4: 29.5 cm2 LAV(MOD-bp) Indexed: 27.4 ml/m2 EDV(MOD-sp4): 93.8 ml LAV(MOD-sp2): 59.0 ml EDV(sp4-el): 97.2 ml LAV(MOD-sp4): 47.4 ml LVAs ap4: 16.4 cm2 ESV(MOD-sp4): 35.9 ml ESV(sp4-el): 36.3 ml EF(MOD-sp4): 61.7 % EF(sp4-el): 62.6 % SV(MOD-sp4): 57.8 ml SV(sp4-el): 60.9 ml LA A4 area: 17.2 cm2 LA dimension(2D): 4.2 cm RA A4 area: 16.8 cm2 Doppler Measurements & Calculations MV E max jeffrey: 80.8 cm/sec Lat Peak E' Jeffrey: 9.0 cm/sec Med Peak E' Jeffrey: 7.2 cm/sec MV A max jeffrey: 55.5 cm/sec E/E' lat: 9.0 E/E' med: 11.2 MV E/A: 1.5 Ao V2 max: 143.1 cm/sec LV V1 max: 118.9 cm/sec SV(LVOT): 87.9 ml Ao max P.2 mmHg LV V1 max P.7 mmHg Ao V2 mean: 95.5 cm/sec LV V1 mean P.0 mmHg Ao mean P.1 mmHg LV V1 mean: 82.1 cm/sec Ao V2 VTI: 31.2 cm LV V1 VTI: 27.1 cm AARON(I,D): 2.8 cm2 AARON(V,D): 2.7 cm2 PA V2 max: 93.4 cm/sec TR max jeffrey: 244.1 cm/sec TR max P.8 mmHg Interpretation Summary The study was technically difficult. Left ventricular systolic function is normal. The estimated ejection fraction is 65 %. The left atrium is mildly enlarged. Mild (1+) mitral valve insufficiency. Mild tricuspid valve insufficiency. Stable appearing mechanical aortic valve apparatus. Trivial transvalvular insufficiency of the aortic valve. Right ventricular systolic pressure estimated to be 27 mmHg. Transmitral diastolic flow velocities suggest diastolic dysfunction (pseudonormal pattern). 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 C/W the previous TTE of 12/12/2017, taking into consideration technically difficult studies, there appears to be similar type changes. Ordering Physician: Kameron Neff Referring Physician: Kameron Hayes Performed By: Janell Betts, RDRICK, RVT
== END ==
PROVIDERS: Family Provider Family Medicine; PCP Family Medicine; Referring Provider Internal Medicine Cardiovascular Disease; Visit Provider Internal Medicine Cardiovascular Disease
DX: I25.10 Atherosclerotic heart disease of native coronary artery without angina pectoris (principal); R79.1 Abnormal coagulation profile; Z95.2 Presence of prosthetic heart valve; Z92.29 Personal history of other drug therapy
CPT/HCPCS: 93306

== ENCOUNTER 2019-03-20 09:31 | Outpatient (RCR) | payer MEDICARE, OTHER, SELFPAY ==
[2019-02-21 08:40] LABS: Prothrombin Time Fingerstick 27.3 SEC (11.9-14.4)
[2019-03-07 09:52] LABS: Prothrombin Time Fingerstick 41.3 SEC (11.9-14.4)
[2019-03-07 12:42] LABS: International Normalized Ratio 3.1; Prothrombin Time (Protime)PT. 32.1 SECONDS (11.7-14.9)
[2019-03-20 09:46] LABS: Prothrombin Time Fingerstick 39.4 SEC (11.9-14.4)
== END 2019-03-20 16:00 | disposition home or self-care (01) ==
LOC: MTLAB 09:31
PROVIDERS: Family Provider Family Medicine; PCP Family Medicine; Referring Provider Internal Medicine Cardiovascular Disease; Visit Provider Internal Medicine Cardiovascular Disease
DX: Q23.1 Congenital insufficiency of aortic valve (principal); Z79.01 Long term (current) use of anticoagulants; Z95.2 Presence of prosthetic heart valve; Z98.890 Other specified postprocedural states
CPT/HCPCS: 36415; 36416; 85610

== ENCOUNTER 2019-04-10 08:47 | Outpatient (RCR) | payer MEDICARE, OTHER, SELFPAY ==
[2019-03-26 09:21] LABS: Prothrombin Time Fingerstick 39.9 SEC (11.9-14.4)
[2019-04-10 09:10] LABS: Prothrombin Time Fingerstick 35.3 SEC (11.9-14.4)
== END 2019-04-10 10:00 | disposition home or self-care (01) ==
LOC: MTLAB 08:47
PROVIDERS: Family Provider Family Medicine; PCP Family Medicine; Referring Provider Internal Medicine Cardiovascular Disease; Visit Provider Internal Medicine Cardiovascular Disease
DX: Q23.1 Congenital insufficiency of aortic valve (principal); Z79.01 Long term (current) use of anticoagulants; Z95.2 Presence of prosthetic heart valve; Z98.890 Other specified postprocedural states
CPT/HCPCS: 36416; 85610

== ENCOUNTER 2019-05-07 09:05 | Outpatient (RCR) | payer MEDICARE, OTHER, SELFPAY ==
[2019-04-23 09:00] LABS: Prothrombin Time Fingerstick 23.8 SEC (11.9-14.4)
[2019-04-30 08:40] LABS: Prothrombin Time Fingerstick 39.4 SEC (11.9-14.4)
[2019-05-07 09:26] LABS: Prothrombin Time Fingerstick 30.4 SEC (11.9-14.4)
== END 2019-05-07 09:30 | disposition home or self-care (01) ==
LOC: MTLAB 09:05
PROVIDERS: Family Provider Family Medicine; PCP Family Medicine; Referring Provider Internal Medicine Cardiovascular Disease; Visit Provider Internal Medicine Cardiovascular Disease
DX: Q23.1 Congenital insufficiency of aortic valve (principal); Z79.01 Long term (current) use of anticoagulants; Z95.2 Presence of prosthetic heart valve; Z98.890 Other specified postprocedural states
CPT/HCPCS: 36416; 85610

== ENCOUNTER 2019-05-28 08:40 | Outpatient (RCR) | payer MEDICARE, OTHER, SELFPAY ==
[2019-05-16 13:58] VITALS: BMI 25.7
[2019-05-28 09:00] LABS: Prothrombin Time Fingerstick 31.2 SEC (11.9-14.4)
== END 2019-06-20 15:58 | disposition home or self-care (01) ==
LOC: MTLAB 08:40
PROVIDERS: Family Provider Family Medicine; PCP Family Medicine; Referring Provider Internal Medicine Cardiovascular Disease; Visit Provider Internal Medicine Cardiovascular Disease
DX: Q23.1 Congenital insufficiency of aortic valve (principal); Z79.01 Long term (current) use of anticoagulants; Z95.2 Presence of prosthetic heart valve; Z98.890 Other specified postprocedural states
CPT/HCPCS: 36416; 85610

== ENCOUNTER 2019-06-25 08:27 | Outpatient (RCR) | payer MEDICARE, OTHER, SELFPAY ==
[2019-05-16 13:58] VITALS: BMI 25.7
[2019-06-25 10:30] LABS: International Normalized Ratio 3.1; Prothrombin Time (Protime)PT. 32.4 SECONDS (11.7-14.9)
[2019-06-25 12:37] LABS: Prothrombin Time Fingerstick 40.1 SEC (11.9-14.4)
== END 2019-06-25 09:27 | disposition home or self-care (01) ==
LOC: MTLAB 08:27
PROVIDERS: Family Provider Family Medicine; PCP Family Medicine; Referring Provider Internal Medicine Cardiovascular Disease; Visit Provider Internal Medicine Cardiovascular Disease
DX: Q23.1 Congenital insufficiency of aortic valve (principal); Z79.01 Long term (current) use of anticoagulants; Z95.2 Presence of prosthetic heart valve; Z98.890 Other specified postprocedural states
CPT/HCPCS: 36415; 36416; 85610

== ENCOUNTER 2019-07-24 08:31 | Outpatient (RCR) | payer MEDICARE, OTHER, SELFPAY ==
[2019-05-16 13:58] VITALS: BMI 25.7
[2019-07-24 10:31] LABS: International Normalized Ratio 3.1; Prothrombin Time (Protime)PT. 31.7 SECONDS (11.7-14.9)
== END 2019-07-24 18:00 | disposition home or self-care (01) ==
LOC: MTLAB 08:31
PROVIDERS: Family Provider Family Medicine; PCP Family Medicine; Referring Provider Internal Medicine Cardiovascular Disease; Visit Provider Internal Medicine Cardiovascular Disease
DX: Q23.1 Congenital insufficiency of aortic valve (principal); Z79.01 Long term (current) use of anticoagulants; Z95.2 Presence of prosthetic heart valve; Z98.890 Other specified postprocedural states
CPT/HCPCS: 36415; 85610

== ENCOUNTER 2019-08-23 14:08 | Outpatient (RCR) | payer MEDICARE, OTHER, SELFPAY ==
[2019-05-16 13:58] VITALS: BMI 25.7
[2019-08-23 16:05] LABS: International Normalized Ratio 3.4; Prothrombin Time (Protime)PT. 34.9 SECONDS (11.7-14.9)
== END 2019-08-23 18:00 | disposition home or self-care (01) ==
LOC: MTLAB 14:08
PROVIDERS: Family Provider Family Medicine; PCP Family Medicine; Referring Provider Internal Medicine Cardiovascular Disease; Visit Provider Internal Medicine Cardiovascular Disease
DX: Q23.1 Congenital insufficiency of aortic valve (principal); Z79.01 Long term (current) use of anticoagulants; Z95.2 Presence of prosthetic heart valve; Z98.890 Other specified postprocedural states
CPT/HCPCS: 36415; 85610

== ENCOUNTER 2019-09-25 08:52 | Outpatient (RCR) | payer MEDICARE, OTHER, SELFPAY ==
[2019-05-16 13:58] VITALS: BMI 25.7
[2019-09-25 10:21] LABS: International Normalized Ratio 3.2; Prothrombin Time (Protime)PT. 33.2 SECONDS (11.7-14.9)
== END 2019-09-25 18:00 | disposition home or self-care (01) ==
LOC: MTLAB 08:52
PROVIDERS: Family Provider Family Medicine; PCP Family Medicine; Referring Provider Internal Medicine Cardiovascular Disease; Visit Provider Internal Medicine Cardiovascular Disease
DX: Q23.1 Congenital insufficiency of aortic valve (principal); Z79.01 Long term (current) use of anticoagulants; Z95.2 Presence of prosthetic heart valve; Z98.890 Other specified postprocedural states
CPT/HCPCS: 36415; 85610

== ENCOUNTER 2019-10-30 08:18 | Outpatient (RCR) | payer MEDICARE, OTHER, SELFPAY ==
[2019-05-16 13:58] VITALS: BMI 25.7
[2019-10-22 10:11] LABS: International Normalized Ratio 2.3; Prothrombin Time (Protime)PT. 25.1 SECONDS (11.7-14.9)
[2019-10-30 10:17] LABS: International Normalized Ratio 3.1; Prothrombin Time (Protime)PT. 32.5 SECONDS (11.7-14.9)
[2019-10-30 10:35] LABS: ALB/GLOB Ratio 0.9 RATIO (0.9-2.4); AST(SGOT) 35 U/L (15-37); Alanine Aminotransfer ALT/SGPT 23 U/L (16-61); Albumin, Serum 3.7 g/dL (3.2-5.0); Alkaline Phosphatase 84 U/L (45-117); Anion Gap 4 (5-15); BUN 19 mg/dL (7-18); BUN/Creat Ratio 15.3 RATIO (10-20); Calcium,Total 8.9 mg/dL (8.5-10.1); Chloride 106 mmol/L (98-107); Cholesterol 169 mg/dL (200); Creatinine, Serum 1.24 mg/dL (0.70-1.30); EST Glomerular Filtration Rate 61 mL/min (>60); Est Glom Filt Rate - Afr Amer 73 mL/min (>60); Globulin 3.9 g/dL (2.2-4.2); Glucose 91 mg/dL (74-106); High Density Lipoprotein 42 mg/dL; Potassium 4.6 mmol/L (3.5-5.1); Protein, Total 7.6 g/dL (6.4-8.2); Sodium Level 141 mmol/L (136-145); Triglycerides 256 mg/dL; Very Low Density Lipoprotein 51 mg/dL (5-40)
== END 2019-10-30 18:00 | disposition home or self-care (01) ==
LOC: MTLAB 08:18
PROVIDERS: Family Provider Family Medicine; PCP Family Medicine; Referring Provider Internal Medicine Cardiovascular Disease; Visit Provider Internal Medicine Cardiovascular Disease
DX: Q23.1 Congenital insufficiency of aortic valve (principal); Z79.01 Long term (current) use of anticoagulants; Z95.2 Presence of prosthetic heart valve; Z98.890 Other specified postprocedural states; E78.5 Hyperlipidemia, unspecified
CPT/HCPCS: 36415; 80053; 80061; 85610

== ENCOUNTER 2019-11-21 01:49 | Emergency (ER) | payer MEDICARE, OTHER, SELFPAY ==
[2019-05-16 13:58] VITALS: BMI 25.7
[2019-11-21 01:50] VITALS: BP 166/68; PULSE 52; RESP 16; TEMP 36.5; O2SAT 96; BMI 26.1
--- NOTE | 2019-11-21 02:01 | ED.DCSUM_ITS ---
- ER Visit Summary Date of Service: 11/21/19 Chief Complaint: Left wrist laceration History of Present Illness: The patient is a 74 M presenting with left wrist laceration. This occurred 10 hours prior to arrival. Patient was using a manual hand saw and the blade came down and hit his left wrist. He has tried to control the bleeding at home. He states it had stopped for a while but now it continues to ooze. He is on Coumadin. Denies other injuries. Last tetanus is unknown. Physical Examination: Vitals are stable. Patient is afebrile. Alert no acute distress. HEENT exam is unremarkable. Neck is supple. Lungs are clear and equal bilaterally. Heart is regular rate and rhythm. Extremities 3 small punctures to left wrist. Normal pulses. Normal cap refill. Active full range of motion. Skin is warm and dry. No focal neurologic deficit. Remainder of exam is unremarkable. Emergency Department Course and Treatment: Patient was given tetanus IM. INR 3.7. Wound was irrigated. Pressure dressing was applied. On reevaluation, patient continues to have oozing. Direct pressure was further applied and he continues to have mild oozing. Silver nitrate stick was used to attempt to cauterize the wound. Applied thrombin soaked gauze and direct pressure. Bleeding has now stopped. Advised wound care instructions. Advised to follow- up with primary care physician. Advised return to ED if worsening complaints. Disposition: Discharged home Impression: Left wrist puncture This note was generated with [employer] dictation software. It may contain incorrect words, spelling, and punctuation that were not noted in review of the chart prior to signing ED Disposition - Plan for ED Patient: Instructions: LACERATION, All Referrals: Kameron Hayes MD [Primary Care Provider] -
[2019-11-21 02:28] LABS: Prothrombin Time (Protime)PT. 36.7 SECONDS (11.7-14.9)
[2019-11-21 02:34] LABS: International Normalized Ratio 3.7
[2019-11-21] MEDS: Diphth,Pertuss(Acell),Tet Vac 0.5 ML Vial IM (02:42)
--- NOTE | 2019-11-21 05:06 | ED.DEP ---
ED Disposition - Plan for ED Patient: Instructions: LACERATION, All Referrals: Kameron Hayes MD [Primary Care Provider] -
[2019-11-21 05:16] VITALS: PULSE 64; RESP 16; O2SAT 96
[2019-11-21] MEDS: Silver Nitrate (BKC) 1 EACH TOPICAL (05:16)
== END 2019-11-21 05:16 | disposition home or self-care (01) ==
LOC: ED 02:16
PROVIDERS: Emergency Provider Emergency Medicine; Family Provider Family Medicine; PCP Family Medicine
DX: S61.532A Puncture wound without foreign body of left wrist, initial encounter (principal); S61.512A Laceration without foreign body of left wrist, initial encounter; W27.0XXA Contact with workbench tool, initial encounter; Y93.9 Activity, unspecified; Y92.9 Unspecified place or not applicable; E78.00 Pure hypercholesterolemia, unspecified; Z79.01 Long term (current) use of anticoagulants; Z79.82 Long term (current) use of aspirin; Z79.899 Other long term (current) drug therapy
CPT/HCPCS: 85610; 90715; 99282

== ENCOUNTER 2019-12-18 08:45 | Outpatient (RCR) | payer MEDICARE, OTHER, SELFPAY ==
[2019-11-27 10:21] LABS: International Normalized Ratio 2.4
[2019-12-04 10:38] LABS: International Normalized Ratio 2.3
[2019-12-18 10:19] LABS: International Normalized Ratio 2.3; Prothrombin Time (Protime)PT. 25.1 SECONDS (11.7-14.9)
== END 2019-12-18 18:00 | disposition home or self-care (01) ==
LOC: MTLAB 08:45
PROVIDERS: Family Provider Family Medicine; PCP Family Medicine; Referring Provider Internal Medicine Cardiovascular Disease; Visit Provider Internal Medicine Cardiovascular Disease
DX: Q23.1 Congenital insufficiency of aortic valve (principal); Z95.2 Presence of prosthetic heart valve; Z98.890 Other specified postprocedural states; Z79.01 Long term (current) use of anticoagulants
CPT/HCPCS: 36415; 85610

== ENCOUNTER 2020-01-01 08:52 | Outpatient (RCR) | payer MEDICARE, OTHER, SELFPAY ==
[2020-01-01 10:21] LABS: International Normalized Ratio 2.8; Prothrombin Time (Protime)PT. 29.9 SECONDS (11.7-14.9)
== END 2020-01-01 18:00 | disposition home or self-care (01) ==
LOC: MTLAB 08:52
PROVIDERS: Family Provider Family Medicine; PCP Family Medicine; Referring Provider Internal Medicine Cardiovascular Disease; Visit Provider Internal Medicine Cardiovascular Disease
DX: Z95.2 Presence of prosthetic heart valve (principal); Z79.01 Long term (current) use of anticoagulants
CPT/HCPCS: 36415; 85610

== ENCOUNTER 2020-02-18 08:34 | Outpatient (RCR) | payer MEDICARE, OTHER, SELFPAY ==
[2020-01-29 12:22] LABS: International Normalized Ratio 2.6; Prothrombin Time (Protime)PT. 28.2 SECONDS (11.7-14.9)
[2020-02-18 10:27] LABS: International Normalized Ratio 2.8; Prothrombin Time (Protime)PT. 29.2 SECONDS (11.7-14.9)
== END 2020-02-18 18:00 | disposition home or self-care (01) ==
LOC: MTLAB 08:34
PROVIDERS: Family Provider Family Medicine; PCP Family Medicine; Referring Provider Internal Medicine Cardiovascular Disease; Visit Provider Internal Medicine Cardiovascular Disease
DX: Z95.2 Presence of prosthetic heart valve (principal); Z79.01 Long term (current) use of anticoagulants
CPT/HCPCS: 36415; 85610

== ENCOUNTER 2020-03-10 08:48 | Outpatient (RCR) | payer MEDICARE, OTHER, SELFPAY ==
[2020-02-25 10:10] LABS: International Normalized Ratio 2.3; Prothrombin Time (Protime)PT. 24.9 SECONDS (11.7-14.9)
[2020-03-10 10:03] LABS: Prothrombin Time (Protime)PT. 30.6 SECONDS (11.7-14.9)
== END 2020-03-20 18:00 | disposition home or self-care (01) ==
LOC: MTLAB 08:48
PROVIDERS: Family Provider Family Medicine; PCP Family Medicine; Referring Provider Internal Medicine Cardiovascular Disease; Visit Provider Internal Medicine Cardiovascular Disease
DX: Z79.01 Long term (current) use of anticoagulants (principal); Z95.2 Presence of prosthetic heart valve
CPT/HCPCS: 36415; 85610

== ENCOUNTER 2020-03-31 08:36 | Outpatient (RCR) | payer MEDICARE, OTHER, SELFPAY ==
[2020-03-31 10:03] LABS: International Normalized Ratio 2.8; Prothrombin Time (Protime)PT. 29.2 SECONDS (11.7-14.9)
== END 2020-03-31 18:00 | disposition home or self-care (01) ==
LOC: MTLAB 08:36
PROVIDERS: Family Provider Family Medicine; PCP Family Medicine; Referring Provider Internal Medicine Cardiovascular Disease; Visit Provider Internal Medicine Cardiovascular Disease
DX: Z79.01 Long term (current) use of anticoagulants (principal); Z95.2 Presence of prosthetic heart valve
CPT/HCPCS: 36415; 85610

== ENCOUNTER → 2020-04-08 10:44 | Outpatient (CLI) | payer MEDICARE, OTHER, SELFPAY ==
[2020-04-08 11:36] LABS: Hematocrit 48.4 % (40-54); Hemoglobin 14.8 g/dL (13.0-16.5); Mean Corp Hgb Conc 30.6 g/dL (32-36); Mean Corpuscular Hgb 29.7 pg (27.0-32.0); Mean Platelet Vol. 10.1 fl (6.2-12.0); Platelet Count 184 K/mm3 (150-450); RBC Distribution Width CV 13.5 % (11.6-14.6); RBC Distribution Width SD 47.6 fl (35.1-43.9); Red Blood Count 4.99 M/mm3 (4.6-6.2); White Blood Count 5.7 K/mm3 (4.4-11.0)
[2020-04-08 11:52] LABS: International Normalized Ratio 2.9; Prothrombin Time (Protime)PT. 30.1 SECONDS (11.7-14.9)
[2020-04-08 12:14] LABS: Anion Gap 5 (5-15); BUN 24 mg/dL (7-18); BUN/Creat Ratio 17.5 RATIO (10-20); Calcium,Total 9.4 mg/dL (8.5-10.1); Chloride 106 mmol/L (98-107); Creatinine, Serum 1.37 mg/dL (0.70-1.30); EST Glomerular Filtration Rate 54 mL/min (>60); Est Glom Filt Rate - Afr Amer 65 mL/min (>60); Glucose 91 mg/dL (74-106); Magnesium 2.5 mg/dL (1.6-2.6); Potassium 4.7 mmol/L (3.5-5.1); Sodium Level 141 mmol/L (136-145)
== END ==
PROVIDERS: PCP Family Medicine; Referring Provider Internal Medicine Cardiovascular Disease; Visit Provider Internal Medicine Cardiovascular Disease
DX: R00.1 Bradycardia, unspecified (principal); I25.10 Atherosclerotic heart disease of native coronary artery without angina pectoris; T14.8XXA Other injury of unspecified body region, initial encounter; Z79.01 Long term (current) use of anticoagulants
CPT/HCPCS: 36415; 80048; 83735; 85027; 85610; 93225; 93226

== ENCOUNTER 2020-05-06 08:10 | Outpatient (RCR) | payer MEDICARE, OTHER, SELFPAY ==
[2020-05-06 10:27] LABS: Cholesterol 166 mg/dL (200); High Density Lipoprotein 40 mg/dL; Triglycerides 184 mg/dL; Very Low Density Lipoprotein 37 mg/dL (5-40)
[2020-05-06 10:29] LABS: International Normalized Ratio 2.7; Prothrombin Time (Protime)PT. 28.3 SECONDS (11.7-14.9)
== END 2020-05-06 18:00 | disposition home or self-care (01) ==
LOC: MTLAB 08:10
PROVIDERS: Family Provider Family Medicine; PCP Family Medicine; Referring Provider Internal Medicine Cardiovascular Disease; Visit Provider Internal Medicine Cardiovascular Disease
DX: E78.5 Hyperlipidemia, unspecified (principal); Z79.01 Long term (current) use of anticoagulants; Z95.2 Presence of prosthetic heart valve
CPT/HCPCS: 36415; 80061; 85610

== ENCOUNTER → 2020-06-02 09:53 | Outpatient (CLI) | payer MEDICARE, OTHER, SELFPAY ==
[2020-05-12 09:38] VITALS: BMI 25.4
--- NOTE | 2020-06-02 09:53 | ECHOD_ITS ---
Reason For Study: Arrhythmia Procedure This was a 2D Doppler, Color Flow transthoracic echocardiogram. The exam was of adequate technical quality. Exam performed in department. Left Ventricle Normal LV size. Left ventricular systolic function is normal. The estimated ejection fraction is 60 %. Unable to assess diastolic dysfunction. No regional wall motion abnormalities noted. Right Ventricle Normal RV size. Normal systolic function. Atria Normal left atrium. Normal right atrium. No doppler evidence for ASD. Mitral Valve There is no mitral annular calcification. Normal mitral valve. Moderate (2+) mitral valve insufficiency. Tricuspid Valve Normal tricuspid valve. Mild to moderate (1-2+) tricuspid valve insufficiency. Right ventricular systolic pressure estimated to be 22 mmHg. Aortic Valve Stable appearing mechanical aortic valve apparatus. Trivial transvalvular insufficiency of the aortic valve. Pulmonic Valve The pulmonic valve is not well visualized. Trivial pulmonic valve insufficiency. Great Vessels Normal sized aortic root. Aortic root repair. Pericardium/Pleural No pericardial effusion. MMode/2D Measurements & Calculations LVIDd: 5.0 cm IVSd: 1.0 cm LVOT diam: 2.0 cm LVIDs: 3.1 cm LVPWd: 1.2 cm LVOT area: 3.2 cm2 RVDd: 4.7 cm FS: 37.8 % Ao root diam: 3.4 cm LAV(MOD-bp): 50.4 ml LVAd ap4: 29.3 cm2 LAV(MOD-bp) Indexed: 26.5 ml/m2 EDV(MOD-sp4): 86.9 ml LAV(MOD-sp2): 43.9 ml EDV(sp4-el): 91.2 ml LAV(MOD-sp4): 49.3 ml LVAs ap4: 15.2 cm2 ESV(MOD-sp4): 30.2 ml ESV(sp4-el): 30.8 ml EF(MOD-sp4): 65.3 % EF(sp4-el): 66.2 % SV(MOD-sp4): 56.7 ml SV(sp4-el): 60.4 ml LA A4 area: 16.2 cm2 LA dimension(2D): 3.5 cm RA A4 area: 17.8 cm2 Doppler Measurements & Calculations MV E max cele: 46.6 cm/sec Ao V2 max: 122.1 cm/sec LV V1 max: 119.0 cm/sec MV A max cele: 54.4 cm/sec Ao max P.0 mmHg LV V1 max P.7 mmHg MV E/A: 0.86 Ao V2 mean: 81.8 cm/sec LV V1 mean P.9 mmHg Ao mean P.1 mmHg LV V1 mean: 77.4 cm/sec Ao V2 VTI: 26.8 cm LV V1 VTI: 27.4 cm AARON(I,D): 3.2 cm2 AARON(V,D): 3.1 cm2 SV(LVOT): 86.8 ml PA V2 max: 73.3 cm/sec TR max cele: 216.1 cm/sec TR max P.7 mmHg Interpretation Summary Left ventricular systolic function is normal. The estimated ejection fraction is 60 %. Moderate (2+) mitral valve insufficiency. Mild to moderate (1-2+) tricuspid valve insufficiency. Stable appearing mechanical aortic valve apparatus. Trivial transvalvular insufficiency of the aortic valve. Trivial pulmonic valve insufficiency. Aortic root repair. Right ventricular systolic pressure estimated to be 22 mmHg. Unable to assess diastolic dysfunction. 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 C/W the previous TTE of 02/23/2019, taking into consideration technically difficult studies, there appears to be similar type changes. Ordering Physician: Kameron Neff Referring Physician: Kameron Hayes Performed By: Janell Betts, RDCS, RVT
== END ==
PROVIDERS: PCP Family Medicine; Referring Provider Internal Medicine Cardiovascular Disease; Visit Provider Internal Medicine Cardiovascular Disease
DX: I25.10 Atherosclerotic heart disease of native coronary artery without angina pectoris (principal); Z95.2 Presence of prosthetic heart valve; Z95.1 Presence of aortocoronary bypass graft; Z98.890 Other specified postprocedural states; Z79.01 Long term (current) use of anticoagulants; E78.5 Hyperlipidemia, unspecified; I10 Essential (primary) hypertension; I49.3 Ventricular premature depolarization
CPT/HCPCS: 36415; 85610; 93306

== ENCOUNTER 2020-06-16 09:30 | Outpatient (RCR) | payer MEDICARE, OTHER, SELFPAY ==
[2020-05-12 09:38] VITALS: BMI 25.4
[2020-06-02 11:26] LABS: International Normalized Ratio 2.4; Prothrombin Time (Protime)PT. 25.6 SECONDS (11.7-14.9)
[2020-06-16 12:45] LABS: International Normalized Ratio 2.7; Prothrombin Time (Protime)PT. 28.4 SECONDS (11.7-14.9)
== END 2020-06-16 18:00 | disposition home or self-care (01) ==
LOC: MTLAB 09:30
PROVIDERS: Family Provider Family Medicine; PCP Family Medicine; Referring Provider Internal Medicine Cardiovascular Disease; Visit Provider Internal Medicine Cardiovascular Disease
DX: Z79.01 Long term (current) use of anticoagulants (principal); Z95.2 Presence of prosthetic heart valve
CPT/HCPCS: 36415; 85610

== ENCOUNTER 2020-07-14 09:07 | Outpatient (RCR) | payer MEDICARE, OTHER, SELFPAY ==
[2020-05-12 09:38] VITALS: BMI 25.4
[2020-07-14 10:04] LABS: International Normalized Ratio 2.6; Prothrombin Time (Protime)PT. 27.6 SECONDS (11.7-14.9)
== END 2020-07-21 18:00 | disposition home or self-care (01) ==
LOC: MTLAB 09:07
PROVIDERS: Family Provider Family Medicine; PCP Family Medicine; Referring Provider Internal Medicine Cardiovascular Disease; Visit Provider Internal Medicine Cardiovascular Disease
DX: Z79.01 Long term (current) use of anticoagulants (principal); Z95.2 Presence of prosthetic heart valve
CPT/HCPCS: 36415; 85610

== ENCOUNTER 2020-08-11 08:26 | Outpatient (RCR) | payer MEDICARE, OTHER, SELFPAY ==
[2020-05-12 09:38] VITALS: BMI 25.4
[2020-08-11 09:56] LABS: International Normalized Ratio 2.3; Prothrombin Time (Protime)PT. 24.6 SECONDS (11.7-14.9)
== END 2020-08-11 18:00 | disposition home or self-care (01) ==
LOC: MTLAB 08:26
PROVIDERS: Family Provider Family Medicine; PCP Family Medicine; Referring Provider Internal Medicine Cardiovascular Disease; Visit Provider Internal Medicine Cardiovascular Disease
DX: Z95.2 Presence of prosthetic heart valve (principal); Z79.01 Long term (current) use of anticoagulants
CPT/HCPCS: 36415; 85610

== ENCOUNTER 2020-08-25 07:53 | Outpatient (RCR) | payer MEDICARE, OTHER, SELFPAY ==
[2020-05-12 09:38] VITALS: BMI 25.4
[2020-08-25 09:55] LABS: International Normalized Ratio 2.5; Prothrombin Time (Protime)PT. 26.3 SECONDS (11.7-14.9)
== END 2020-08-25 18:00 | disposition home or self-care (01) ==
LOC: MTLAB 07:53
PROVIDERS: Family Provider Family Medicine; PCP Family Medicine; Referring Provider Internal Medicine Cardiovascular Disease; Visit Provider Internal Medicine Cardiovascular Disease
DX: Z79.01 Long term (current) use of anticoagulants (principal); Z95.2 Presence of prosthetic heart valve
CPT/HCPCS: 36415; 85610

== ENCOUNTER 2020-10-20 08:24 | Outpatient (RCR) | payer MEDICARE, OTHER, SELFPAY ==
[2020-05-12 09:38] VITALS: BMI 25.4
[2020-09-22 10:10] LABS: International Normalized Ratio 3.2; Prothrombin Time (Protime)PT. 32.2 SECONDS (11.7-14.9)
[2020-10-20 09:57] LABS: International Normalized Ratio 3.4; Prothrombin Time (Protime)PT. 34.2 SECONDS (11.7-14.9)
== END 2020-10-20 18:00 | disposition home or self-care (01) ==
LOC: MTLAB 08:24
PROVIDERS: Family Provider Family Medicine; PCP Family Medicine; Referring Provider Internal Medicine Cardiovascular Disease; Visit Provider Internal Medicine Cardiovascular Disease
DX: Z79.01 Long term (current) use of anticoagulants (principal); Z95.2 Presence of prosthetic heart valve
CPT/HCPCS: 36415; 85610

== ENCOUNTER 2020-11-17 08:40 | Outpatient (RCR) | payer MEDICARE, OTHER, SELFPAY ==
[2020-05-12 09:38] VITALS: BMI 25.4
[2020-11-17 10:25] LABS: International Normalized Ratio 3.2; Prothrombin Time (Protime)PT. 32.7 SECONDS (11.7-14.9)
== END 2020-11-17 18:00 | disposition home or self-care (01) ==
LOC: MTLAB 08:40
PROVIDERS: Family Provider Family Medicine; PCP Family Medicine; Referring Provider Internal Medicine Cardiovascular Disease; Visit Provider Internal Medicine Cardiovascular Disease
DX: Z79.01 Long term (current) use of anticoagulants (principal); Z95.2 Presence of prosthetic heart valve
CPT/HCPCS: 36415; 85610

== ENCOUNTER → 2020-12-02 08:35 | Outpatient (CLI) | payer MEDICARE, OTHER, SELFPAY ==
[2020-05-12 09:38] VITALS: BMI 25.4
[2020-12-02 10:38] LABS: Anion Gap 5 (5-15); BUN 26 mg/dL (7-18); BUN/Creat Ratio 19.5 RATIO (10-20); Calcium,Total 8.9 mg/dL (8.5-10.1); Chloride 106 mmol/L (98-107); Cholesterol 178 mg/dL (200); Creatinine, Serum 1.33 mg/dL (0.70-1.30); EST Glomerular Filtration Rate 56 mL/min (>60); Est Glom Filt Rate - Afr Amer 67 mL/min (>60); Glucose 94 mg/dL (74-106); High Density Lipoprotein 49 mg/dL; Potassium 4.3 mmol/L (3.5-5.1); Sodium Level 140 mmol/L (136-145); Triglycerides 126 mg/dL; Very Low Density Lipoprotein 25 mg/dL (5-40)
== END ==
PROVIDERS: PCP Family Medicine; Referring Provider Family Medicine; Visit Provider Family Medicine
DX: E78.5 Hyperlipidemia, unspecified (principal); I10 Essential (primary) hypertension
CPT/HCPCS: 36415; 80048; 80061

== ENCOUNTER 2020-12-15 08:27 | Outpatient (RCR) | payer MEDICARE, OTHER, SELFPAY ==
[2020-05-12 09:38] VITALS: BMI 25.4
[2020-12-15 10:04] LABS: International Normalized Ratio 2.9; Prothrombin Time (Protime)PT. 29.8 SECONDS (11.7-14.9)
== END 2020-12-15 18:00 | disposition home or self-care (01) ==
LOC: MTLAB 08:27
PROVIDERS: Family Provider Family Medicine; PCP Family Medicine; Referring Provider Internal Medicine Cardiovascular Disease; Visit Provider Internal Medicine Cardiovascular Disease
DX: Z79.01 Long term (current) use of anticoagulants (principal); Z95.2 Presence of prosthetic heart valve
CPT/HCPCS: 36415; 85610

== ENCOUNTER 2021-01-12 08:25 | Outpatient (RCR) | payer MEDICARE, OTHER, SELFPAY ==
[2020-05-12 09:38] VITALS: BMI 25.4
[2021-01-12 10:43] LABS: International Normalized Ratio 3.5
== END 2021-01-12 18:00 | disposition home or self-care (01) ==
LOC: MTLAB 08:25
PROVIDERS: Family Provider Family Medicine; PCP Family Medicine; Referring Provider Internal Medicine Cardiovascular Disease; Visit Provider Internal Medicine Cardiovascular Disease
DX: Z79.01 Long term (current) use of anticoagulants (principal); Z95.2 Presence of prosthetic heart valve
CPT/HCPCS: 36415; 85610

== ENCOUNTER 2021-01-30 08:32 | Outpatient (RCR) | payer MEDICARE, OTHER, SELFPAY ==
[2020-05-12 09:38] VITALS: BMI 25.4
[2021-01-30 10:15] LABS: International Normalized Ratio 3.4; Prothrombin Time (Protime)PT. 33.7 SECONDS (11.7-14.9)
== END 2021-01-30 18:00 | disposition home or self-care (01) ==
LOC: MTLAB 08:32
PROVIDERS: Family Provider Family Medicine; PCP Family Medicine; Referring Provider Internal Medicine Cardiovascular Disease; Visit Provider Internal Medicine Cardiovascular Disease
DX: Z79.01 Long term (current) use of anticoagulants (principal); Z95.2 Presence of prosthetic heart valve
CPT/HCPCS: 36415; 85610

== ENCOUNTER 2021-02-27 08:33 | Outpatient (RCR) | payer MEDICARE, OTHER, SELFPAY ==
[2020-05-12 09:38] VITALS: BMI 25.4
[2021-02-27 09:58] LABS: International Normalized Ratio 3.5
== END 2021-02-27 18:00 | disposition home or self-care (01) ==
LOC: MTLAB 08:33
PROVIDERS: Family Provider Family Medicine; PCP Family Medicine; Referring Provider Internal Medicine Cardiovascular Disease; Visit Provider Internal Medicine Cardiovascular Disease
DX: Z95.2 Presence of prosthetic heart valve (principal); Z79.01 Long term (current) use of anticoagulants
CPT/HCPCS: 36415; 85610

== ENCOUNTER 2021-03-23 08:49 | Outpatient (RCR) | payer MEDICARE, OTHER, SELFPAY ==
[2020-05-12 09:38] VITALS: BMI 25.4
[2021-03-23 09:58] LABS: International Normalized Ratio 2.9; Prothrombin Time (Protime)PT. 29.5 SECONDS (11.7-14.9)
== END 2021-03-23 18:00 | disposition home or self-care (01) ==
LOC: MTLAB 08:49
PROVIDERS: Family Provider Family Medicine; PCP Family Medicine; Referring Provider Internal Medicine Cardiovascular Disease; Visit Provider Internal Medicine Cardiovascular Disease
DX: Z95.2 Presence of prosthetic heart valve (principal); Z79.01 Long term (current) use of anticoagulants
CPT/HCPCS: 36415; 85610

== ENCOUNTER 2021-04-21 09:32 | Outpatient (RCR) | payer MEDICARE, OTHER, SELFPAY ==
[2020-05-12 09:38] VITALS: BMI 25.4
[2021-04-21 12:33] LABS: International Normalized Ratio 3.1; Prothrombin Time (Protime)PT. 30.7 SECONDS (11.7-14.9)
== END 2021-04-21 18:00 | disposition home or self-care (01) ==
LOC: MTLAB 09:32
PROVIDERS: Family Provider Family Medicine; PCP Family Medicine; Referring Provider Internal Medicine Cardiovascular Disease; Visit Provider Internal Medicine Cardiovascular Disease
DX: Z95.2 Presence of prosthetic heart valve (principal); Z79.01 Long term (current) use of anticoagulants
CPT/HCPCS: 36415; 85610

== ENCOUNTER → 2021-06-01 09:52 | Outpatient (CLI) | payer MEDICARE, OTHER, SELFPAY ==
[2020-05-12 09:38] VITALS: BMI 25.4
[2021-06-01 13:15] LABS: Anion Gap 3 (5-15); BUN 23 mg/dL (7-18); BUN/Creat Ratio 19.7 RATIO (10-20); Calcium,Total 8.7 mg/dL (8.5-10.1); Chloride 107 mmol/L (98-107); Cholesterol 176 mg/dL (200); Creatinine, Serum 1.17 mg/dL (0.70-1.30); EST Glomerular Filtration Rate 64 mL/min (>60); Est Glom Filt Rate - Afr Amer 78 mL/min (>60); Glucose 88 mg/dL (74-106); High Density Lipoprotein 48 mg/dL; Potassium 4.6 mmol/L (3.5-5.1); Sodium Level 140 mmol/L (136-145); Triglycerides 162 mg/dL; Very Low Density Lipoprotein 32 mg/dL (5-40)
== END ==
PROVIDERS: PCP Family Medicine; Referring Provider Family Medicine; Visit Provider Family Medicine
DX: I10 Essential (primary) hypertension (principal)
CPT/HCPCS: 36415; 80048; 80061

== ENCOUNTER 2021-06-18 08:27 | Outpatient (RCR) | payer MEDICARE, OTHER, SELFPAY ==
[2020-05-12 09:38] VITALS: BMI 25.4
[2021-05-21 10:17] LABS: International Normalized Ratio 2.9; Prothrombin Time (Protime)PT. 29.8 SECONDS (11.7-14.9)
[2021-06-18 10:23] LABS: International Normalized Ratio 2.5; Prothrombin Time (Protime)PT. 26.4 SECONDS (11.7-14.9)
== END 2021-06-18 18:00 | disposition home or self-care (01) ==
LOC: MTLAB 08:27
PROVIDERS: Family Provider Family Medicine; PCP Family Medicine; Referring Provider Internal Medicine Cardiovascular Disease; Visit Provider Internal Medicine Cardiovascular Disease
DX: Z95.2 Presence of prosthetic heart valve (principal); Z79.01 Long term (current) use of anticoagulants
CPT/HCPCS: 36415; 85610

== ENCOUNTER → 2021-06-25 07:51 | Outpatient (CLI) | payer MEDICARE, OTHER, SELFPAY ==
[2021-06-11 14:10] VITALS: BMI 25.5
--- NOTE | 2021-06-25 07:51 | ECHOD_ITS ---
Reason For Study: VALVE REPLACEMENT EVAL Procedure This was a 2D Doppler, Color Flow transthoracic echocardiogram. The study was technically difficult. Exam performed in department. Left Ventricle Normal LV size. Mild concentric left ventricular hypertrophy. Left ventricular systolic function is normal. The estimated ejection fraction is 60 %. No evidence for diastolic dysfunction. No regional wall motion abnormalities noted. Right Ventricle Normal size and thickness. Normal systolic function. Atria The left atrium is mildly enlarged. The right atrium is mildly enlarged. No doppler evidence for ASD. Mitral Valve There is no mitral annular calcification. Normal mitral valve. Mild (1+) mitral valve insufficiency. Tricuspid Valve Normal tricuspid valve. Mild tricuspid valve insufficiency. Right ventricular systolic pressure estimated to be 29 mmHg. Aortic Valve Stable appearing mechanical aortic valve apparatus. Pulmonic Valve The pulmonic valve is not well visualized. Trivial pulmonic valve insufficiency. Great Vessels Aortic root repair. Pericardium/Pleural No pericardial effusion. MMode/2D Measurements & Calculations LVIDd: 4.2 cm IVSd: 1.3 cm LVOT diam: 2.1 cm LVIDs: 3.0 cm LVPWd: 1.3 cm LVOT area: 3.5 cm2 RVDd: 3.8 cm FS: 29.8 % Ao root diam: 3.2 cm LAV(MOD-bp): 53.0 ml LVAd ap4: 30.0 cm2 LAV(MOD-bp) Indexed: 27.6 ml/m2 LVLd ap4: 8.1 cm LAV(MOD-sp2): 52.7 ml EDV(MOD-sp4): 92.9 ml LAV(MOD-sp4): 53.1 ml EDV(sp4-el): 93.7 ml LVAs ap4: 17.7 cm2 LVLs ap4: 7.0 cm ESV(MOD-sp4): 41.0 ml ESV(sp4-el): 37.8 ml EF(MOD-sp4): 55.9 % EF(sp4-el): 59.6 % SV(MOD-sp4): 51.9 ml SV(sp4-el): 55.9 ml LA A4 area: 19.0 cm2 LA dimension(2D): 4.0 cm RA A4 area: 18.5 cm2 Time Measurements MV dec time: 0.27 sec Doppler Measurements & Calculations MV E max jeffrey: 71.7 cm/sec Lat Peak E' Jeffrey: 12.1 cm/sec Med Peak E' Jeffrey: 7.0 cm/sec MV A max jeffrey: 53.0 cm/sec E/E' lat: 5.9 E/E' med: 10.2 MV E/A: 1.4 Ao V2 max: 126.9 cm/sec LV V1 max: 76.1 cm/sec SV(LVOT): 68.5 ml Ao max P.4 mmHg LV V1 max P.3 mmHg Ao V2 mean: 93.6 cm/sec LV V1 mean P.3 mmHg Ao mean P.8 mmHg LV V1 mean: 54.1 cm/sec Ao V2 VTI: 31.1 cm LV V1 VTI: 19.3 cm AARON(I,D): 2.2 cm2 AARON(V,D): 2.1 cm2 PA V2 max: 84.5 cm/sec TR max jeffrey: 252.8 cm/sec TR max P.7 mmHg ECHO/Echo Complete Interpretation Summary The study was technically difficult. Left ventricular systolic function is normal. The estimated ejection fraction is 60 %. Mild concentric left ventricular hypertrophy. The left atrium is mildly enlarged. The right atrium is mildly enlarged. Mild (1+) mitral valve insufficiency. Mild tricuspid valve insufficiency. Stable appearing mechanical aortic valve apparatus. Aortic root repair. Right ventricular systolic pressure estimated to be 29 mmHg. No evidence for diastolic dysfunction. 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 C/W the previous TTE of 9, taking into consideration technically difficult studies, there appears to be similar type c hanges. Ordering Physician: Kameron Neff Referring Physician: KAMERON NATH Performed By: Neyda Ortiz RDCS
== END ==
PROVIDERS: PCP Family Medicine; Referring Provider Internal Medicine Cardiovascular Disease; Visit Provider Internal Medicine Cardiovascular Disease
DX: I25.10 Atherosclerotic heart disease of native coronary artery without angina pectoris (principal); I10 Essential (primary) hypertension; Z95.1 Presence of aortocoronary bypass graft; I49.3 Ventricular premature depolarization; Z95.2 Presence of prosthetic heart valve; E78.5 Hyperlipidemia, unspecified; Z98.890 Other specified postprocedural states
CPT/HCPCS: 93306

== ENCOUNTER 2021-07-16 08:35 | Outpatient (RCR) | payer MEDICARE, OTHER, SELFPAY ==
[2021-06-11 14:10] VITALS: BMI 25.5
[2021-07-16 10:06] LABS: International Normalized Ratio 2.3; Prothrombin Time (Protime)PT. 24.2 SECONDS (11.7-14.9)
== END 2021-07-16 18:00 | disposition home or self-care (01) ==
LOC: MTLAB 08:35
PROVIDERS: Family Provider Family Medicine; PCP Family Medicine; Referring Provider Internal Medicine Cardiovascular Disease; Visit Provider Internal Medicine Cardiovascular Disease
DX: Z95.2 Presence of prosthetic heart valve (principal); Z79.01 Long term (current) use of anticoagulants
CPT/HCPCS: 36415; 85610

== ENCOUNTER 2021-07-30 08:09 | Outpatient (RCR) | payer MEDICARE, OTHER, SELFPAY ==
[2021-07-22 01:17] VITALS: BMI 25.5
[2021-07-30 10:12] LABS: International Normalized Ratio 2.6; Prothrombin Time (Protime)PT. 27.2 SECONDS (11.7-14.9)
== END 2021-07-30 18:00 | disposition home or self-care (01) ==
LOC: MTLAB 08:09
PROVIDERS: Family Provider Family Medicine; PCP Family Medicine; Referring Provider Internal Medicine Cardiovascular Disease; Visit Provider Internal Medicine Cardiovascular Disease
DX: Z95.2 Presence of prosthetic heart valve (principal); Z79.01 Long term (current) use of anticoagulants
CPT/HCPCS: 36415; 85610

== ENCOUNTER 2021-08-27 08:23 | Outpatient (RCR) | payer MEDICARE, OTHER, SELFPAY ==
[2021-08-21 01:56] VITALS: BMI 25.5
[2021-08-27 10:16] LABS: International Normalized Ratio 2.6; Prothrombin Time (Protime)PT. 27.1 SECONDS (11.7-14.9)
== END 2021-09-20 18:00 | disposition home or self-care (01) ==
LOC: MTLAB 08:23
PROVIDERS: Family Provider Family Medicine; PCP Family Medicine; Referring Provider Internal Medicine Cardiovascular Disease; Visit Provider Internal Medicine Cardiovascular Disease
DX: Z95.2 Presence of prosthetic heart valve (principal); Z79.01 Long term (current) use of anticoagulants
CPT/HCPCS: 36415; 85610

== ENCOUNTER 2021-09-24 08:25 | Outpatient (RCR) | payer MEDICARE, OTHER, SELFPAY ==
[2021-09-20 20:34] VITALS: BMI 25.5
[2021-09-24 10:28] LABS: International Normalized Ratio 2.7; Prothrombin Time (Protime)PT. 28.2 SECONDS (11.7-14.9)
== END 2021-10-20 18:00 | disposition home or self-care (01) ==
LOC: MTLAB 08:25
PROVIDERS: Family Provider Family Medicine; PCP Family Medicine; Referring Provider Internal Medicine Cardiovascular Disease; Visit Provider Internal Medicine Cardiovascular Disease
DX: Z79.01 Long term (current) use of anticoagulants (principal); Z95.2 Presence of prosthetic heart valve
CPT/HCPCS: 36415; 85610

== ENCOUNTER 2021-11-19 08:28 | Outpatient (RCR) | payer MEDICARE, OTHER, SELFPAY ==
[2021-10-21 04:06] VITALS: BMI 25.5
[2021-10-22 10:47] LABS: Prothrombin Time (Protime)PT. 30.5 SECONDS (11.7-14.9)
[2021-11-19 10:37] LABS: Prothrombin Time (Protime)PT. 30.4 SECONDS (11.7-14.9)
== END 2021-11-21 18:00 | disposition home or self-care (01) ==
LOC: MTLAB 08:28
PROVIDERS: Family Provider Family Medicine; PCP Family Medicine; Referring Provider Internal Medicine Cardiovascular Disease; Visit Provider Internal Medicine Cardiovascular Disease
DX: Z79.01 Long term (current) use of anticoagulants (principal); Z95.2 Presence of prosthetic heart valve
CPT/HCPCS: 36415; 85610

== ENCOUNTER 2021-12-02 10:00 | Outpatient (CLI) | payer MEDICARE, OTHER, SELFPAY ==
[2021-12-02 12:38] LABS: Anion Gap 4 (5-15); BUN 20 mg/dL (7-18); BUN/Creat Ratio 16.3 RATIO (10-20); Calcium,Total 9.3 mg/dL (8.5-10.1); Chloride 106 mmol/L (98-107); Creatinine, Serum 1.23 mg/dL (0.70-1.30); EST Glomerular Filtration Rate 61 mL/min (>60); Est Glom Filt Rate - Afr Amer 74 mL/min (>60); Glucose 92 mg/dL (74-106); Potassium 4.8 mmol/L (3.5-5.1); Sodium Level 137 mmol/L (136-145)
== END 2021-12-02 23:59 | disposition short-term general hospital (02) ==
LOC: MFPLAB 10:03
PROVIDERS: PCP Family Medicine; Referring Provider Family Medicine; Visit Provider Family Medicine
DX: I10 Essential (primary) hypertension (principal)
CPT/HCPCS: 36415; 80048

== ENCOUNTER 2021-12-17 09:17 | Outpatient (RCR) | payer MEDICARE, OTHER, SELFPAY ==
[2021-11-22 18:18] VITALS: BMI 25.5
[2021-12-17 10:30] LABS: International Normalized Ratio 2.7; Prothrombin Time (Protime)PT. 28.2 SECONDS (11.7-14.9)
== END 2021-12-21 18:00 | disposition home or self-care (01) ==
LOC: MTLAB 09:17
PROVIDERS: Family Provider Family Medicine; PCP Family Medicine; Referring Provider Internal Medicine Cardiovascular Disease; Visit Provider Internal Medicine Cardiovascular Disease
DX: Z95.2 Presence of prosthetic heart valve (principal); Z79.01 Long term (current) use of anticoagulants
CPT/HCPCS: 36415; 85610

== ENCOUNTER 2022-01-13 08:44 | Outpatient (RCR) | payer MEDICARE, OTHER, SELFPAY ==
[2021-12-22 01:42] VITALS: BMI 25.5
[2022-01-13 10:35] LABS: International Normalized Ratio 2.8; Prothrombin Time (Protime)PT. 28.8 SECONDS (11.7-14.9)
== END 2022-01-13 23:59 | disposition home or self-care (01) ==
LOC: MTLAB 08:44
PROVIDERS: Family Provider Family Medicine; PCP Family Medicine; Referring Provider Internal Medicine Cardiovascular Disease; Visit Provider Internal Medicine Cardiovascular Disease
DX: Z79.01 Long term (current) use of anticoagulants (principal); Z95.2 Presence of prosthetic heart valve
CPT/HCPCS: 36415; 85610

== ENCOUNTER 2022-02-11 08:38 | Outpatient (RCR) | payer MEDICARE, OTHER, SELFPAY ==
[2022-01-19 10:18] VITALS: BMI 25.5
[2022-02-11 10:30] LABS: International Normalized Ratio 2.8; Prothrombin Time (Protime)PT. 28.5 SECONDS (11.7-14.9)
== END 2022-02-18 18:00 | disposition home or self-care (01) ==
LOC: MTLAB 08:38
PROVIDERS: Family Provider Family Medicine; PCP Family Medicine; Referring Provider Internal Medicine Cardiovascular Disease; Visit Provider Internal Medicine Cardiovascular Disease
DX: Z95.2 Presence of prosthetic heart valve (principal); Z79.01 Long term (current) use of anticoagulants
CPT/HCPCS: 36415; 85610

== ENCOUNTER 2022-03-11 08:38 | Outpatient (RCR) | payer MEDICARE, OTHER, SELFPAY ==
[2022-02-19 02:58] VITALS: BMI 25.5
[2022-03-11 10:02] LABS: International Normalized Ratio 3.2; Prothrombin Time (Protime)PT. 32.5 SECONDS (11.7-14.9)
== END 2022-03-11 18:00 | disposition home or self-care (01) ==
LOC: MTLAB 08:38
PROVIDERS: Family Provider Family Medicine; PCP Family Medicine; Referring Provider Internal Medicine Cardiovascular Disease; Visit Provider Internal Medicine Cardiovascular Disease
DX: Z95.2 Presence of prosthetic heart valve (principal); Z79.01 Long term (current) use of anticoagulants
CPT/HCPCS: 36415; 85610

== ENCOUNTER 2022-04-08 08:56 | Outpatient (RCR) | payer MEDICARE, OTHER, SELFPAY ==
[2022-03-21 05:24] VITALS: BMI 25.5
[2022-03-25 10:30] LABS: International Normalized Ratio 2.9; Prothrombin Time (Protime)PT. 29.7 SECONDS (11.7-14.9)
[2022-04-08 10:34] LABS: Prothrombin Time (Protime)PT. 30.4 SECONDS (11.7-14.9)
== END 2022-04-08 18:00 | disposition home or self-care (01) ==
LOC: MTLAB 08:56
PROVIDERS: Family Provider Family Medicine; PCP Family Medicine; Referring Provider Internal Medicine Cardiovascular Disease; Visit Provider Internal Medicine Cardiovascular Disease
DX: Z95.2 Presence of prosthetic heart valve (principal); Z79.01 Long term (current) use of anticoagulants
CPT/HCPCS: 36415; 85610

== ENCOUNTER 2022-05-06 08:12 | Outpatient (RCR) | payer MEDICARE, OTHER, SELFPAY ==
[2022-04-20 21:43] VITALS: BMI 25.5
[2022-05-06 10:01] LABS: International Normalized Ratio 2.8; Prothrombin Time (Protime)PT. 28.8 SECONDS (11.7-14.9)
== END 2022-05-20 16:00 | disposition home or self-care (01) ==
LOC: MTLAB 08:12
PROVIDERS: Family Provider Family Medicine; PCP Family Medicine; Referring Provider Internal Medicine Cardiovascular Disease; Visit Provider Internal Medicine Cardiovascular Disease
DX: Z95.2 Presence of prosthetic heart valve (principal); Z79.01 Long term (current) use of anticoagulants
CPT/HCPCS: 36415; 85610

== ENCOUNTER 2022-06-02 08:59 | Outpatient (RCR) | payer MEDICARE, OTHER, SELFPAY ==
[2022-05-21 08:13] VITALS: BMI 25.5
[2022-06-02 10:38] LABS: International Normalized Ratio 2.7
[2022-06-02 11:08] LABS: ALB/GLOB Ratio 0.9 RATIO (0.9-2.4); AST(SGOT) 38 U/L (15-37); Alanine Aminotransfer ALT/SGPT 22 U/L (16-61); Albumin, Serum 3.4 g/dL (3.2-5.0); Alkaline Phosphatase 78 U/L (45-117); Anion Gap 3 (5-15); BUN 22 mg/dL (7-18); BUN/Creat Ratio 19.1 RATIO (10-20); Calcium,Total 9.1 mg/dL (8.5-10.1); Chloride 106 mmol/L (98-107); Cholesterol 153 mg/dL (200); Creatinine, Serum 1.15 mg/dL (0.70-1.30); EST Glomerular Filtration Rate 66 mL/min (>60); Est Glom Filt Rate - Afr Amer 79 mL/min (>60); Globulin 3.8 g/dL (2.2-4.2); Glucose 92 mg/dL (74-106); High Density Lipoprotein 40 mg/dL; Potassium 4.6 mmol/L (3.5-5.1); Protein, Total 7.2 g/dL (6.4-8.2); Sodium Level 139 mmol/L (136-145); Triglycerides 164 mg/dL; Very Low Density Lipoprotein 33 mg/dL (5-40)
== END 2022-06-20 03:24 | disposition home or self-care (01) ==
LOC: MTLAB 08:59
PROVIDERS: Family Provider Family Medicine; PCP Family Medicine; Referring Provider Internal Medicine Cardiovascular Disease; Visit Provider Internal Medicine Cardiovascular Disease
DX: Z79.01 Long term (current) use of anticoagulants (principal); Z95.2 Presence of prosthetic heart valve; I10 Essential (primary) hypertension
CPT/HCPCS: 36415; 80053; 80061; 85610

== ENCOUNTER 2022-06-30 08:38 | Outpatient (RCR) | payer MEDICARE, OTHER, SELFPAY ==
[2022-06-20 03:25] VITALS: BMI 25.5
[2022-06-30 10:15] LABS: International Normalized Ratio 2.8; Prothrombin Time (Protime)PT. 29.5 SECONDS (11.7-14.9)
== END 2022-06-30 18:00 | disposition home or self-care (01) ==
LOC: MTLAB 08:38
PROVIDERS: Family Provider Family Medicine; PCP Family Medicine; Referring Provider Internal Medicine Cardiovascular Disease; Visit Provider Internal Medicine Cardiovascular Disease
DX: Z79.01 Long term (current) use of anticoagulants (principal); Z95.2 Presence of prosthetic heart valve
CPT/HCPCS: 36415; 85610

== ENCOUNTER 2022-07-29 08:25 | Outpatient (RCR) | payer MEDICARE, OTHER, SELFPAY ==
[2022-07-22 00:58] VITALS: BMI 25.5
[2022-07-29 10:14] LABS: International Normalized Ratio 2.6; Prothrombin Time (Protime)PT. 27.6 SECONDS (11.7-14.9)
== END 2022-07-29 18:00 | disposition home or self-care (01) ==
LOC: MTLAB 08:25
PROVIDERS: Family Provider Family Medicine; PCP Family Medicine; Referring Provider Internal Medicine Cardiovascular Disease; Visit Provider Internal Medicine Cardiovascular Disease
DX: Z79.01 Long term (current) use of anticoagulants (principal); Z95.2 Presence of prosthetic heart valve
CPT/HCPCS: 36415; 85610

== ENCOUNTER 2022-08-25 08:17 | Outpatient (RCR) | payer MEDICARE, OTHER, SELFPAY ==
[2022-08-21 01:48] VITALS: BMI 25.5
[2022-08-25 10:23] LABS: International Normalized Ratio 2.5; Prothrombin Time (Protime)PT. 26.8 SECONDS (11.7-14.9)
== END 2022-08-25 18:00 | disposition home or self-care (01) ==
LOC: MTLAB 08:17
PROVIDERS: Family Provider Family Medicine; PCP Family Medicine; Referring Provider Internal Medicine Cardiovascular Disease; Visit Provider Internal Medicine Cardiovascular Disease
DX: Z79.01 Long term (current) use of anticoagulants (principal); Z95.2 Presence of prosthetic heart valve
CPT/HCPCS: 36415; 85610

== ENCOUNTER 2022-10-20 08:30 | Outpatient (RCR) | payer MEDICARE, OTHER, SELFPAY ==
[2022-09-21 10:24] VITALS: BMI 25.5
[2022-09-22 10:37] LABS: International Normalized Ratio 2.8; Prothrombin Time (Protime)PT. 29.4 SECONDS (11.7-14.9)
[2022-10-20 10:30] LABS: International Normalized Ratio 3.6; Prothrombin Time (Protime)PT. 35.5 SECONDS (11.7-14.9)
== END 2022-10-20 18:00 | disposition home or self-care (01) ==
LOC: MTLAB 08:30
PROVIDERS: Family Provider Family Medicine; PCP Family Medicine; Referring Provider Internal Medicine Cardiovascular Disease; Visit Provider Internal Medicine Cardiovascular Disease
DX: Z79.01 Long term (current) use of anticoagulants (principal); Z95.2 Presence of prosthetic heart valve
CPT/HCPCS: 36415; 85610

== ENCOUNTER 2022-11-03 08:28 | Outpatient (RCR) | payer MEDICARE, OTHER, SELFPAY ==
[2022-10-21 02:22] VITALS: BMI 25.5
[2022-11-03 10:19] LABS: International Normalized Ratio 2.8; Prothrombin Time (Protime)PT. 28.8 SECONDS (11.7-14.9)
== END 2022-11-03 18:00 | disposition home or self-care (01) ==
LOC: MTLAB 08:28
PROVIDERS: Family Provider Family Medicine; PCP Family Medicine; Referring Provider Internal Medicine Cardiovascular Disease; Visit Provider Internal Medicine Cardiovascular Disease
DX: Z79.01 Long term (current) use of anticoagulants (principal); Z95.2 Presence of prosthetic heart valve
CPT/HCPCS: 36415; 85610

== ENCOUNTER → 2022-12-01 | Outpatient (CLI) | payer MEDICARE, OTHER, SELFPAY ==
[2022-12-01 10:51] LABS: International Normalized Ratio 2.3; Prothrombin Time (Protime)PT. 24.6 SECONDS (11.7-14.9)
[2022-12-01 11:01] LABS: Anion Gap 8 (5-15); BUN 23 mg/dL (7-18); BUN/Creat Ratio 19.7 RATIO (10-20); Calcium,Total 8.9 mg/dL (8.5-10.1); Chloride 105 mmol/L (98-107); Cholesterol 165 mg/dL (200); Creatinine, Serum 1.17 mg/dL (0.70-1.30); EST Glomerular Filtration Rate 64 mL/min (>60); Est Glom Filt Rate - Afr Amer 78 mL/min (>60); Glucose 92 mg/dL (74-106); High Density Lipoprotein 47 mg/dL; Potassium 4.4 mmol/L (3.5-5.1); Sodium Level 141 mmol/L (136-145); Triglycerides 125 mg/dL; Very Low Density Lipoprotein 25 mg/dL (5-40)
== END | disposition home or self-care (01) ==
LOC: MFPLAB 09:04
PROVIDERS: PCP Family Medicine; Visit Provider Family Medicine
DX: I10 Essential (primary) hypertension (principal); Z79.01 Long term (current) use of anticoagulants; Z95.2 Presence of prosthetic heart valve
CPT/HCPCS: 36415; 80048; 80061; 85610

== ENCOUNTER 2022-12-14 13:44 | Outpatient (RCR) | payer MEDICARE, OTHER, SELFPAY ==
[2022-11-21 06:25] VITALS: BMI 25.5
[2022-12-14 15:24] LABS: International Normalized Ratio 2.5; Prothrombin Time (Protime)PT. 26.9 SECONDS (11.7-14.9)
== END 2022-12-14 15:44 | disposition home or self-care (01) ==
LOC: MTLAB 13:44
PROVIDERS: Family Provider Family Medicine; PCP Family Medicine; Referring Provider Internal Medicine Cardiovascular Disease; Visit Provider Internal Medicine Cardiovascular Disease
DX: Z79.01 Long term (current) use of anticoagulants (principal); Z95.2 Presence of prosthetic heart valve
CPT/HCPCS: 36415; 85610

== ENCOUNTER 2022-12-29 17:39 | Emergency (ER) | payer MEDICARE, OTHER, SELFPAY ==
[2022-12-29 17:40] VITALS: BP 176/75; PULSE 67; RESP 15; TEMP 36.6; O2SAT 98; BMI 24.2
--- NOTE | 2022-12-29 17:44 | CT_ITS ---
EXAMINATION : Head CT w/out contrast HISTORY : HEAD INJURY, ON COUMADIN COMPARISON : None. TECHNIQUE : Multiple contiguous axial images were obtained from the skull base to the vertex without intravenous contrast. A radiation dose optimization technique was used for this scan. FINDINGS : There is no evidence for acute intracranial hemorrhage, mass effect, or midline shift. There is no extra-axial fluid collection. There are periventricular white matter changes consistent with chronic microvascular ischemic disease. There is sulcal widening and ventricular enlargement consistent with cerebral atrophy. There is normal deal-white differentiation, without CT evidence of acute ischemia or infarct. The skull base and calvarium are unremarkable. The orbits are unremarkable. The paranasal sinuses are clear. The mastoid air cells are well-aerated. Large right frontal scalp hematoma. CT/Brain/Head without Contrast IMPRESSION: Large right frontal scalp hematoma. No fracture or intracranial hemorrhage. Chronic involutional and ischemic changes of the brain. Electronically Signed: Subhash Anguiano MD at 18:03 EST ,
[2022-12-29 20:31] VITALS: BP 154/68; PULSE 64; RESP 14; O2SAT 94
[2022-12-29 21:27] VITALS: BP 146/69; PULSE 69; RESP 18; O2SAT 96
--- NOTE | 2022-12-29 22:49 | EX.ED.DYSGE1 ---
HPI History of Present Illness Chief Complaint: Head Injury Narrative Narrative: 77-year-old male presenting after a mechanical fall today. Apparently he went for a walk and when he came home he was out in front of his garage he turned and lost his balance. He states that he has balance issues. He fell into the garage face first hitting his head. No LOC. He is not dizzy or lightheaded. He does not complain of headache. No visual complaints. He does not have any neck pain. She was seen by his PCP who saw his very large cephalohematoma on his forehead and sent to the emergency room for CT because the patient is on Coumadin. 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 Premature complex, ventricular Renal insufficiency Home Medications aspirin 81 mg tablet,delayed release 81 mg PO QDAY 11/22/17 [History Last Taken Unknown] jvywbeww-wcu-vwnbm acid 300 mcg-lycopene 600 mcg-lutein 300 mcg tablet (Centrum Silver Men) 1 tab PO QDAY 11/23/17 [History Last Taken Unknown] pravastatin 40 mg tablet 40 mg PO DAILY 11/21/19 [History Last Taken Unknown] acetaminophen 325 mg tablet (Tylenol) 325 mg PO Q6H PRN 05/12/20 [History Last Taken Unknown] warfarin 2 mg tablet 2 mg PO .COMPLEX #270 tabs 02/04/22 [Rx Last Taken Unknown] amoxicillin 500 mg capsule 2,000 mg PO .COMPLEX #4 caps 03/29/22 [Rx Last Taken Unknown] pantoprazole 40 mg tablet,delayed release 40 mg PO QDAY #30 tabs 04/14/22 [Rx Last Taken Unknown] metoprolol tartrate 25 mg tablet 12.5 mg PO BID #90 tabs 06/11/22 [Rx Last Taken Unknown] Allergy/AdvReac Type Severity Reaction Status Date / Time Sulfa (Sulfonamide Allergy Hives Verified 06/07/22 09:28 Antibiotics) Family History Father CAD (coronary artery disease) Hypertension Brother CAD (coronary artery disease) Surgical History History of aortic root repair (~12/06/13) History of cardiac catheterization (~08/2013) History of colonoscopy History of coronary artery bypass surgery (~12/06/13) History of mechanical aortic valve replacement (~11/2013) Hx of appendectomy Social History Smoking Status: Never smoker alcohol intake: never substance use type: does not use caffeine: No what type of physical activity do you participate in: walking ROS ROS ED Review of Systems ROS Unobtainable: Denies due to encephalopathy Constitutional Constitutional ED: Denies chills or fever(s) Eyes Eyes: Denies change in vision or diplopia ENT ENT ED: Denies rhinorrhea or sore throat Cardiovascular Cardiovascular: Denies chest pain or palpitations Respiratory/Chest Respiratory/Chest: Denies cough or dyspnea Gastrointestinal Gastrointestinal: Denies abdominal pain or constipation Genitourinary Genitourinary ED: Denies dysuria or hematuria Musculoskeletal Musculoskeletal: Denies arthralgias or back pain Integumentary Denies abscess or Abrasions Neurologic Neurologic: Denies headache(s), paresthesias or weakness Psychiatric Psychiatric: Denies anxiety or depression EXAM Physical Exam Const Vital Signs: 12/29/22 17:40 12/29/22 20:29 12/29/22 20:31 Temperature 98 F Temperature Source Temporal Pulse Rate 67 64 Respiratory Rate 15 14 Respiratory Effort Normal Non-Labored Blood Pressure 176/75 H 154/68 H Blood Pressure Mean 108 96 Pulse Ox 98 94 Oxygen Delivery Method Room Air Room Air Room Air 12/29/22 21:27 Temperature Temperature Source Pulse Rate 69 Respiratory Rate 18 Respiratory Effort Blood Pressure 146/69 H Blood Pressure Mean Pulse Ox 96 Oxygen Delivery Method Positive well nourished and well developed General Appearance ED: well developed and NAD; Negative for pallor HEENT Reports moist mucous membranes Eyes PERRL and EOMs intact bilaterally Chest Wall inspection of chest normal and palpation of chest normal Resp normal respiratory effort and clear to auscultation bilaterally Auscultation: Negative for rales, rhonchi or wheezes Cardio regular rate and regular rhythm GI normal to inspection, nondistended, normoactive bowel sounds Neuro oriented x3 and CN's II-XII intact bilaterally Psych mental status grossly normal Skin no rashes or lesions noted and no wounds General Skin Exam: Negative for jaundice or pallor MDM MDM MDM Narrative Medical decision making narrative: Patient presenting with cephalhematoma on the forehead. He states he is not in much pain. He has no neurologic signs or symptoms. He does not have a headache. He is on Coumadin and this was checked today and was normal. His PCP sent him in for a CT brain because he hit his head on Coumadin. CT brain was performed and is negative for acute intracranial process however he does have a large frontal scalp hematoma. Patient was counseled that this would likely start to show bruising down the front of his face and would turn different colors and not to be alarmed. Patient will be discharged home in stable condition. Impression 1. Cephalohematoma 2. Mechanical fall Lab Data Attestation: I reviewed the patient's lab results. Radiography Diagnostic Testing: Clinical Impression(s) from Imaging Studies Brain CT 12/29/22 17:44 IMPRESSION: Large right frontal scalp hematoma. No fracture or intracranial hemorrhage. Chronic involutional and ischemic changes of the brain. Electronically Signed: Subhash Anguiano MD at 18:03 EST , Discharge Plan Triage Chief Complaint: Head Injury ED Provider: Nicholas Painting Dx/Rx/DC Orders Instructions: ED Head Injury (Adult), ED Hematoma Prescriptions: No Action npctacmq-lhp-BV-lycopen-lutein [Centrum Silver Men] 300-600-300 mcg tablet 1 tab PO QDAY aspirin 81 mg tablet,delayed release (DR/EC) 81 mg PO QDAY acetaminophen [Tylenol] 325 mg tablet 325 mg PO Q6H PRN pravastatin 40 MG tablet 40 mg PO DAILY Label Comments: TAKE 1 TABLET BY MOUTH EVERY DAY warfarin 2 mg tablet 2 mg PO .COMPLEX Qty: 270 3RF Protocol: Dose Management Condition: Tuesday Dose/Route: 4 mg Instruction: 2 x 2 mg tablets Condition: Tuesday Dose/Route: 4 mg Instruction: 2 x 2 mg tablets Condition: Tuesday Dose/Route: 4 mg Instruction: 2 x 2 mg tablets Condition: Tuesday Dose/Route: 4 mg Instruction: 2 x 2 mg tablets Condition: Dose/Route: 6 mg Instruction: 3 x 2 mg tablets Condition: Tuesday Dose/Route: 4 mg Instruction: 2 x 2 mg tablets Condition: Tuesday Dose/Route: 4 mg Instruction: 2 x 2 mg tablets Protocol Text: Adjustment Start Date: Tuesday12/14/22 INR Value: 2.5 INR Date: 12/14/22 Recheck Date: 01/11/23 Rx Instructions: 2 mg PO 2 tablets (4mg) daily except on take 3 tablets (6 mg); or as directed. This is a dose increase.; amoxicillin 500 mg capsule 2,000 mg PO .COMPLEX Qty: 4 4RF Rx Instructions: 2,000 mg PO 1 hour prior to dental procedure; pantoprazole 40 mg tablet,delayed release (DR/EC) 40 mg PO QDAY Qty: 30 12RF metoprolol tartrate 25 mg tablet 12.5 mg PO BID Qty: 90 3RF Primary Care Provider: Kameron Hayes Referrals: Kameron Hayes MD [Primary Care Provider] - Disposition Disposition: Home, Self Care Discharge Date/Time: 12/29/22 21:27
== END 2022-12-29 21:27 | disposition home or self-care (01) ==
PROVIDERS: Emergency Provider Student in an Organized Health Care Education/Training Program; PCP Family Medicine; Visit Provider Student in an Organized Health Care Education/Training Program
DX: S00.03XA Contusion of scalp, initial encounter (principal); I25.10 Atherosclerotic heart disease of native coronary artery without angina pectoris; I10 Essential (primary) hypertension; E78.5 Hyperlipidemia, unspecified; Z79.01 Long term (current) use of anticoagulants; W01.198A Fall on same level from slipping, tripping and stumbling with subsequent striking against other object, initial encounter; Y92.59 Other trade areas as the place of occurrence of the external cause
CPT/HCPCS: 70450; 99282

== ENCOUNTER 2023-01-11 08:05 | Outpatient (RCR) | payer MEDICARE, OTHER, SELFPAY ==
[2022-12-22 07:35] VITALS: BMI 25.5
[2023-01-11 10:02] LABS: International Normalized Ratio 3.5; Prothrombin Time (Protime)PT. 34.5 SECONDS (11.7-14.9)
== END 2023-01-11 18:00 | disposition home or self-care (01) ==
LOC: MTLAB 08:05
PROVIDERS: Family Provider Family Medicine; PCP Family Medicine; Referring Provider Internal Medicine Cardiovascular Disease; Visit Provider Internal Medicine Cardiovascular Disease
DX: Z79.01 Long term (current) use of anticoagulants (principal); Z95.2 Presence of prosthetic heart valve
CPT/HCPCS: 36415; 85610

== ENCOUNTER 2023-01-24 08:51 | Outpatient (RCR) | payer MEDICARE, OTHER, SELFPAY ==
[2023-01-18 23:11] VITALS: BMI 25.5
[2023-01-24 10:25] LABS: International Normalized Ratio 2.9; Prothrombin Time (Protime)PT. 29.6 SECONDS (11.7-14.9)
== END 2023-02-18 20:50 | disposition home or self-care (01) ==
LOC: MTLAB 08:51
PROVIDERS: Family Provider Family Medicine; PCP Family Medicine; Referring Provider Internal Medicine Cardiovascular Disease; Visit Provider Internal Medicine Cardiovascular Disease
DX: Z79.01 Long term (current) use of anticoagulants (principal); Z95.2 Presence of prosthetic heart valve
CPT/HCPCS: 36415; 85610

== ENCOUNTER → 2023-02-01 | Outpatient (CLI) | payer MEDICARE, OTHER, SELFPAY ==
--- NOTE | 2023-02-01 13:30 | ECHOD_ITS ---
Reason For Study: VALVE REPLACEMENT EVAL Procedure This was a 2D Doppler, Color Flow transthoracic echocardiogram. The study was technically difficult. Exam performed in department. Left Ventricle Normal LV size. Left ventricular systolic function is normal. The estimated ejection fraction is 65 %. No evidence for diastolic dysfunction. No regional wall motion abnormalities noted. Right Ventricle Normal RV size. Normal systolic function. Atria Normal left atrium. The right atrium is mildly enlarged. No doppler evidence for ASD. Mitral Valve There is no mitral annular calcification. Normal mitral valve. Trivial mitral valve insufficiency. Tricuspid Valve Normal tricuspid valve. Mild tricuspid valve insufficiency. Right ventricular systolic pressure estimated to be 25 mmHg. Aortic Valve Trivial aortic valve insufficiency. Stable appearing mechanical aortic valve apparatus. Pulmonic Valve The pulmonic valve is not well visualized. Trivial pulmonic valve insufficiency. Great Vessels Aortic root repair. Pericardium/Pleural No pericardial effusion. MMode/2D Measurements & Calculations LVIDd: 5.3 cm IVSd: 1.3 cm Ao root diam: 3.3 cm LVIDs: 3.9 cm LVPWd: 1.2 cm RVDd: 3.3 cm FS: 26.6 % LAV(MOD-bp): 63.4 ml LVAd ap4: 33.0 cm2 LVAd ap2: 28.5 cm2 LAV(MOD-bp) Indexed: 32.1 ml/m2 LVLd ap4: 8.4 cm LVLd ap2: 8.1 cm LAV(MOD-sp2): 67.1 ml EDV(MOD-sp4): 109.9 ml EDV(MOD-sp2): 86.3 ml LAV(MOD-sp4): 53.0 ml EDV(sp4-el): 110.3 ml EDV(sp2-el): 85.1 ml LVAs ap4: 16.4 cm2 LVAs ap2: 15.6 cm2 LVLs ap4: 6.7 cm LVLs ap2: 7.4 cm ESV(MOD-sp4): 36.3 ml ESV(MOD-sp2): 29.6 ml ESV(sp4-el): 34.3 ml ESV(sp2-el): 27.6 ml EF(MOD-sp4): 67.0 % EF(MOD-sp2): 65.7 % EF(sp4-el): 68.9 % SV(MOD-sp4): 73.6 ml SV(MOD-sp2): 56.7 ml SV(sp4-el): 76.0 ml LA dimension(2D): 3.6 cm LA A4 area: 17.1 cm2 RA A4 area: 14.6 cm2 Time Measurements MV dec time: 0.30 sec Doppler Measurements & Calculations MV E max jeffrey: 58.1 cm/sec Lat Peak E' Jeffrey: 10.3 cm/sec Med Peak E' Jeffrey: 7.1 cm/sec MV A max jeffrey: 59.0 cm/sec E/E' lat: 5.6 E/E' med: 8.2 MV E/A: 0.98 MV dec slope: 196.5 cm/sec2 Ao V2 max: 149.9 cm/sec LV V1 max: 78.6 cm/sec Ao max P.0 mmHg LV V1 max P.5 mmHg Ao V2 mean: 104.7 cm/sec LV V1 mean P.3 mmHg Ao mean P.9 mmHg LV V1 mean: 54.1 cm/sec Ao V2 VTI: 26.3 cm LV V1 VTI: 18.7 cm AV (velocity ratio): 0.71 PA V2 max: 84.1 cm/sec TR max jeffrey: 236.8 cm/sec TR max P.4 mmHg ECHO/Echo Complete Interpretation Summary The study was technically difficult. Left ventricular systolic function is normal. The estimated ejection fraction is 65 %. The right atrium is mildly enlarged. Trivial mitral valve insufficiency. Mild tricuspid valve insufficiency. Stable appearing mechanical aortic valve apparatus. Trivial aortic valve insufficiency. Trivial pulmonic valve insufficiency. Aortic root repair. Right ventricular systolic pressure estimated to be 25 mmHg. No evidence for diastolic dysfunction. 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 C/W the previous TTE of and 02/23/2019, taking into consideration technically difficult studies, there appears to be si milar type changes. Ordering Physician: Kameron Neff Referring Physician: KAMERON NATH Performed By: Nuris Hernandez, RDCS, RVT
== END | disposition home or self-care (01) ==
LOC: CVS 13:28
PROVIDERS: PCP Family Medicine; Visit Provider Internal Medicine Cardiovascular Disease
DX: I25.10 Atherosclerotic heart disease of native coronary artery without angina pectoris (principal); I10 Essential (primary) hypertension; Z95.1 Presence of aortocoronary bypass graft; I49.3 Ventricular premature depolarization; Z95.2 Presence of prosthetic heart valve; E78.5 Hyperlipidemia, unspecified; Z98.890 Other specified postprocedural states
CPT/HCPCS: 93306

== ENCOUNTER 2023-02-15 22:21 | Emergency (ER) | payer MEDICARE, OTHER, SELFPAY ==
[2023-02-15 22:22] VITALS: BP 146/68; PULSE 77; RESP 16; TEMP 37.8; O2SAT 94; O2SAT 96; BMI 25.9
--- NOTE | 2023-02-15 23:10 | RAD_ITS ---
INDICATION: Fever and respiratory symptoms EXAMINATION/TECHNIQUE: X-RAY - XR Chest 2 Views COMPARISON: None. FINDINGS: LINES/DEVICES: None. LUNGS: Subsegmental atelectasis in the left lung base. MEDIASTINUM AND CARDIOVASCULAR STRUCTURES: Cardiac silhouette not enlarged. Central airways and mediastinal contour are unremarkable. BONES AND SOFT TISSUES: Multilevel degenerative disc disease. RAD/Chest PA and Lateral IMPRESSION: No radiographic evidence of acute cardiopulmonary disease. Electronically Signed: Leila Vicente MD at 23:54 EDT ,
[2023-02-15 23:23] LABS: Absolute Lymphocyte Count 0.66 X10^3/uL (0.83-4.51); Absolute Neutrophil Count 4.1 X10^3/uL (2.0-7.7); Basophil# 0.03 X10^3/uL; Basophil% 0.5 % (0-1); Hematocrit 42.8 % (40-54); Hemoglobin 13.4 g/dL (13.0-16.5); Lymphocyte # 0.66 X10^3/ul (0.83-4.51); Lymphocyte % 11.1 % (19-41); Mean Corp Hgb Conc 31.3 g/dL (32-36); Mean Corpuscular Hgb 29.9 pg (27.0-32.0); Mean Corpuscular Volume 95.5 fL (80-94); Mean Platelet Vol. 10.1 fl (6.2-12.0); Monocyte% 18.6 % (0-10); NRBC Flagged by Analyzer 0 % (0-5); Neutrophil # 4.06 X10^3/uL (2.7-7.7); Neutrophil % 68.6 % (47-70); Platelet Count 141 K/mm3 (150-450); RBC Distribution Width CV 14.4 % (11.6-14.6); RBC Distribution Width SD 50.6 fl (35.1-43.9); Red Blood Count 4.48 M/mm3 (4.6-6.2); White Blood Count 5.9 K/mm3 (4.4-11.0)
[2023-02-15 23:25] LABS: ALB/GLOB Ratio 0.8 RATIO (0.9-2.4); AST(SGOT) 35 U/L (15-37); Alanine Aminotransfer ALT/SGPT 26 U/L (16-61); Albumin, Serum 3.1 g/dL (3.2-5.0); Alkaline Phosphatase 82 U/L (45-117); Anion Gap 4 (5-15); BUN 24 mg/dL (7-18); BUN/Creat Ratio 18.6 RATIO (10-20); Calcium,Total 8.5 mg/dL (8.5-10.1); Chloride 110 mmol/L (98-107); Creatinine, Serum 1.29 mg/dL (0.70-1.30); EST Glomerular Filtration Rate 57 mL/min (>60); Est Glom Filt Rate - Afr Amer 69 mL/min (>60); Estimated Creatinine Clearance 49.52 ml/min; Globulin 3.7 g/dL (2.2-4.2); Glucose 128 mg/dL (74-106); Potassium 4.3 mmol/L (3.5-5.1); Protein, Total 6.8 g/dL (6.4-8.2); Sodium Level 141 mmol/L (136-145)
[2023-02-15] MEDS: Acetaminophen 325 MG Tablet PO (23:28)
[2023-02-15 23:29] VITALS: BP 129/66; PULSE 68; RESP 19; TEMP 38; O2SAT 95
[2023-02-15 23:34] LABS: Mucous, Urine 0 SEEN /hpf (<or=2+); Squamous Epithelial Cells - UA 0 SEEN /hpf (0-5); White Blood Cells 0 SEEN /hpf (0-5)
[2023-02-15 23:35] LABS: International Normalized Ratio 2.2; Prothrombin Time (Protime)PT. 24.4 SECONDS (11.7-14.9)
--- NOTE | 2023-02-15 23:35 | EDS_ITS ---
HPI History of Present Illness Chief Complaint: General Illness Detail of Chief Complaint: Generalized weakness, fever, upper respiratory symptoms and dysuria Informant: patient and spouse/S.O. Onset/Context/Timing Onset: Today Context: Sudden Onset Timing: Continuous Quality: Lack of energy, infectious symptoms involving respiratory and urologic Location: Respiratory and urologic Current Severity: Unable to determine Maximum Severity: Patient unable to quantitate Worsened by: Nothing Relieved by: Nothing Associated Symptoms Associated Symptoms: Poor p.o. 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 He presents because of fever documented to 101.0 ?F. He denies headache. He denies ocular, visual or auditory symptoms. He denies photophobia, neck pain or neck stiffness. He does endorse rhinorrhea, congestion and postnasal drainage. He denies sore throat. He endorses shortness of breath. He denies cough. He does report nausea without vomiting or diarrhea. He does endorse dysuria without frequency or urgency. He denies any skin lesions. He denies any ill contacts in the past week. Prior similar symptoms: No Recent Illness/Hospitalization: No [facility] [place] Medical History (Updated 02/16/23 @ 00:[address] Ervin Ramon MD) Atherosclerotic heart disease of [place] coronary artery without angina pectoris Bicuspid aortic valve Bruising Essential hypertension H/O echocardiogram (~11/2016) Hyperlipidemia senior living current use of anticoagulant therapy Premature complex, ventricular Renal insufficiency Home Medications aspirin 81 mg tablet,delayed release 81 mg PO QDAY 11/22/17 [History Last Taken Unknown] sqihywwj-wdr-kluve acid 300 mcg-lycopene 600 mcg-lutein 300 mcg tablet (Centrum Silver Men) 1 tab PO QDAY 11/23/17 [History Last Taken Unknown] pravastatin 40 mg tablet 40 mg PO DAILY 11/21/19 [History Last Taken Unknown] acetaminophen 325 mg tablet (Tylenol) 325 mg PO Q6H PRN 05/12/20 [History Last Taken Unknown] warfarin 2 mg tablet 2 mg PO .COMPLEX #270 tabs 02/04/22 [Rx Last Taken Unknown] amoxicillin 500 mg capsule 2,000 mg PO .COMPLEX #4 caps 03/29/22 [Rx Last Taken Unknown] pantoprazole 40 mg tablet,delayed release 40 mg PO QDAY #30 tabs 04/14/22 [Rx Last Taken Unknown] Allergy/AdvReac Type Severity Reaction Status Date / Time Sulfa (Sulfonamide Allergy Hives Verified 02/15/23 22:26 Antibiotics) Family History Father CAD (coronary artery disease) Hypertension Brother CAD (coronary artery disease) Surgical History (Updated 02/16/23 @ 00:[address] Ervin Ramon MD) History of aortic root repair (~12/06/13) History of cardiac catheterization (~08/2013) History of colonoscopy History of coronary artery bypass surgery (~12/06/13) History of mechanical aortic valve replacement (~11/2013) Hx of appendectomy Social History (Updated 02/15/23 @ 23:[address] Ervin Ramon MD) household members: spouse Smoking Status: Never smoker alcohol intake: never substance use type: does not use caffeine: No what type of physical activity do you participate in: walking ROS ROS ED Constitutional Constitutional ED: Reports chills, fever(s) and sweats; Denies subjective or weight loss Eyes Eyes: Denies blurry vision, change in vision or diplopia ENT ENT ED: Reports rhinorrhea; Denies ear pain or sore throat Cardiovascular Cardiovascular: Denies chest pain, orthopnea, palpitations, paroxysmal nocturnal dyspnea or racing heartbeat Respiratory/Chest Respiratory/Chest: Denies cough, dyspnea, dyspnea on exertion, orthopnea or paroxysmal nocturnal dyspnea Gastrointestinal Gastrointestinal: Reports nausea; Denies abdominal pain, diarrhea or vomiting Genitourinary Genitourinary ED: Denies dysuria, hematuria or urinary frequency Musculoskeletal Musculoskeletal: Denies arthralgias, back pain, myalgias or neck pain Integumentary Denies rash Neurologic Neurologic: Reports weakness; Denies headache(s) or paresthesias Endocrine Endocrinology: Denies cold intolerance Hematologic/Lymphatic Hematologic/Lymphatic: Reports systems reviewed and no addt'l complaints, except as documented and easy bruising EXAM Physical Exam Const Vital Signs: 02/15/23 22:22 02/15/23 22:22 02/15/23 23:29 Temperature 100.1 F H 100.4 F H Temperature Source Temporal Oral Pulse Rate 77 68 Respiratory Rate 16 19 H Respiratory Effort Respiratory Pattern Blood Pressure 146/68 H 129/66 H Blood Pressure Mean 94 87 Pulse Ox 94 96 95 Oxygen Delivery Method Room Air Room Air Room Air 02/15/23 23:32 Temperature Temperature Source Pulse Rate Respiratory Rate Respiratory Effort Normal Non-Labored Respiratory Pattern Normal Blood Pressure Blood Pressure Mean Pulse Ox Oxygen Delivery Method Positive well nourished and well developed General Appearance ED: well developed and NAD; Negative for cyanotic, diaphoretic or pallor HEENT Reports dry mucous membranes HEENT Narrative: Head is atraumatic normocephalic. Ears normal. TMJ normal. TMs normal. Nares patent with mild drainage noted. Posterior pharynx is normal. Mouth ED: Yes dry mucous membranes Mouth: dry mucous membranes Eyes PERRL and EOMs intact bilaterally General Eye ED: Negative for pale conjunctiva or scleral icterus Neck no lymphadenopathy, supple and no JVD Chest Wall inspection of chest normal and palpation of chest normal Resp normal respiratory effort and clear to auscultation bilaterally Auscultation: Negative for rales, rhonchi or wheezes Cardio regular rate, regular rhythm and S1 normal heart sound; Negative for S2 normal heart sound Rate: other Other Details: Patient has metallic click due to prosthetic aortic valve. GI normal to inspection, nondistended, normoactive bowel sounds, non-tender, non- distended and no masses; Negative for hepatosplenomegaly Back/Spine no CVA tenderness Thoracic Spine / Upper Back: Negative for thoracic spinal tenderness Lumbar Spine / Lower Back: Negative for lumbar spinal tenderness Extremity normal to inspection General Extremety ED: Negative for edema or tenderness General Extremity: Negative for edema Neuro oriented x3, CN's II-XII intact bilaterally and no sensory deficits noted Neuro Narrative: Patient is aware. Sensorium / Orientation: Negative for alert Psych mental status grossly normal Skin no rashes or lesions noted, no wounds and skin turgor normal General Skin Exam: Negative for jaundice or pallor MDM MDM MDM Narrative Medical decision making narrative: Presents with respiratory as well as urologic symptoms with fever. This may represent a viral illness, need to rule out urinary tract infection. Need to rule out pneumonia. Work-up included a CBC, blood work to assess for endorgan dysfunction and lactate. Chest x-ray was obtained to evaluate for pneumonia. History & Record Review Discussion w/independent historian: Patient and Significant other Additional record(s) reviewed:: Prior outpatient record, Prior ED visit (Recent visit for head trauma. CAT scan was obtained since he is on Coumadin.) and Prior labs Lab Data Attestation: I reviewed the patient's lab results. Lab results narrative: CBC is normal with a normal differential. Comprehensive metabolic panel is remarkable slight elevation in creatinine of 1.29 with a GFR 57. UA is unremarkable. Macro was positive for protein and blood. Micro revealed 0-5 RBCs, 0 WBCs, 0 epithelial cells and rare bacteria. This is not consistent with a urinary tract infection. Labs: Laboratory Results - last 24 hr 02/15/23 02/15/23 02/15/23 22:20 22:20 22:30 WBC 5.9 RBC 4.48 L Hgb 13.4 Hct 42.8 MCV 95.5 H MCH 29.9 MCHC 31.3 L RDW Std Deviation 50.6 H RDW Coeff of Beth 14.4 Plt Count 141 L MPV 10.1 Immature Gran % (Auto) 1.200 H Neut % (Auto) 68.6 Lymph % (Auto) 11.1 L Taylor % (Auto) 18.6 H Eos % (Auto) 0.0 Baso % (Auto) 0.5 Absolute Neuts (auto) 4.1 Absolute Lymphs (auto) 0.66 L Nucleated RBC % 0 PT 24.4 H INR 2.2 Sodium 141 Potassium 4.3 Chloride 110 H Carbon Dioxide 27.0 Anion Gap 4 L BUN 24 H Creatinine 1.29 Estim Creat Clear Calc 49.52 Est GFR (MDRD) Af Amer 69 Est GFR (MDRD) Non-Af 57 L BUN/Creatinine Ratio 18.6 Glucose 128 H Calcium 8.5 Total Bilirubin 0.60 AST 35 ALT 26 Alkaline Phosphatase 82 Total Protein 6.8 Albumin 3.1 L Globulin 3.7 Albumin/Globulin Ratio 0.8 L Urine Color Urine Clarity Urine pH Ur Specific [place] Urine Protein Urine Glucose (UA) Urine Ketones Urine Occult Blood Urine Nitrite Urine Bilirubin Urine Urobilinogen Ur Leukocyte Esterase Urine RBC Urine WBC Ur Squamous Epith Cells Urine Bacteria Urine Mucus 02/15/23 23:30 WBC RBC Hgb Hct MCV MCH MCHC RDW Std Deviation RDW Coeff of Beth Plt Count MPV Immature Gran % (Auto) Neut % (Auto) Lymph % (Auto) Taylor % (Auto) Eos % (Auto) Baso % (Auto) Absolute Neuts (auto) Absolute Lymphs (auto) Nucleated RBC % PT INR Sodium Potassium Chloride Carbon Dioxide Anion Gap BUN Creatinine Estim Creat Clear Calc Est GFR (MDRD) Af Amer Est GFR (MDRD) Non-Af BUN/Creatinine Ratio Glucose Calcium Total Bilirubin AST ALT Alkaline Phosphatase Total Protein Albumin Globulin Albumin/Globulin Ratio Urine Color Yellow Urine Clarity Clear Urine pH 5.0 Ur Specific [place] 1.020 Urine Protein 15 H Urine Glucose (UA) Normal Urine Ketones Negative Urine Occult Blood 50 H Urine Nitrite Negative Urine Bilirubin Negative Urine Urobilinogen Normal Ur Leukocyte Esterase Negative Urine RBC 0-5 SEEN Urine WBC 0 SEEN Ur Squamous Epith Cells 0 SEEN Urine Bacteria RARE Urine Mucus 0 SEEN Radiography Chest X-Ray - ED: 2 View and Read by ED Physician (2 view chest x-ray independently reviewed interpreted by me as negative for any acute process and unchanged from January 10, 2023. Cardiac silhouette size unremarkable. Perihilar region unremarkable.) Diagnostic Testing: Clinical Impression(s) from Imaging Studies Chest X-Ray 02/15/23 23:10 IMPRESSION: No radiographic evidence of acute cardiopulmonary disease. Electronically Signed: Leila Vicente MD at 23:54 EDT Reading Location ID and State: [facility] / [place] Tel , Service support , Treatment and Re-Evaluation :: Patient is improved. Patient and were informed of results. Patient was discharged to home. Discharge Plan Triage Chief Complaint: General Illness ED Provider: Ervin Ramon Dx/Rx/DC Orders Clinical Impression: Fever of unknown origin, senior living current use of anticoagulant therapy, History of mechanical aortic valve replacement, Essential hypertension, Hyperlipidemia, Dysuria, Nasal congestion Instructions: ED FUO Adult Prescriptions: No Action [id number]-ttm-DL-lycopen-lutein [Centrum Silver Men] 300-600-300 mcg tablet 1 tab PO QDAY aspirin 81 mg tablet,delayed release (DR/EC) 81 mg PO QDAY acetaminophen [Tylenol] 325 mg tablet 325 mg PO Q6H PRN pravastatin 40 MG tablet 40 mg PO DAILY Label Comments: TAKE 1 TABLET BY MOUTH EVERY DAY warfarin 2 mg tablet 2 mg PO .COMPLEX Qty: 270 3RF Protocol: Dose Management Condition: Tuesday Dose/Route: 4 mg Instruction: 2 x 2 mg tablets Condition: Tuesday Dose/Route: 4 mg Instruction: 2 x 2 mg tablets Condition: Tuesday Dose/Route: 4 mg Instruction: 2 x 2 mg tablets Condition: Tuesday Dose/Route: 4 mg Instruction: 2 x 2 mg tablets Condition: Dose/Route: 6 mg Instruction: 3 x 2 mg tablets Condition: Tuesday Dose/Route: 4 mg Instruction: 2 x 2 mg tablets Condition: Tuesday Dose/Route: 4 mg Instruction: 2 x 2 mg tablets Protocol Text: Adjustment Start Date: Tuesday01/24/23 INR Value: 2.9 INR Date: 01/24/23 Recheck Date: 02/21/23 Rx Instructions: 2 mg PO 2 tablets (4mg) daily except on take 3 tablets (6 mg); or as directed. This is a dose increase.; amoxicillin 500 mg capsule 2,000 mg PO .COMPLEX Qty: 4 4RF Rx Instructions: 2,000 mg PO 1 hour prior to dental procedure; pantoprazole 40 mg tablet,delayed release (DR/EC) 40 mg PO QDAY Qty: 30 12RF Primary Care Provider: Kameron Hayes Referrals: Kameron Hayes MD [Primary Care Provider] - 1-2 Days if not improving Disposition Disposition: Home, Self Care
[2023-02-15 23:40] LABS: Color, Urine Yellow (Yellow); Glucose, Dipstick Normal (Normal); Ketone-Dipstick Negative (Negative); Leukocyte Esterase-Dipstick Negative /ul (Negative); Nitrite-Dipstick Negative (Negative); Occult Blood-Urine 50 /ul (Negative); Protein-Dipstick 15 mg/dl (Negative); Urine Bilirubin Dipstick Negative (Negative); Urine Clarity Clear (Clear); Urine Urobilinogen Normal (Normal)
[2023-02-15 23:59] LABS: Bacteria RARE /hpf (None Seen); Red Blood Cells-Urine 0-5 SEEN /hpf (0-5)
[2023-02-16 01:10] VITALS: BP 128/63; PULSE 74; RESP 18; O2SAT 98
== END 2023-02-16 01:12 | disposition home or self-care (01) ==
PROVIDERS: Emergency Provider Emergency Medicine; PCP Family Medicine; Visit Provider Emergency Medicine
DX: R50.9 Fever, unspecified (principal); E78.5 Hyperlipidemia, unspecified; R06.02 Shortness of breath; I25.10 Atherosclerotic heart disease of native coronary artery without angina pectoris; I10 Essential (primary) hypertension; R53.1 Weakness; Z79.01 Long term (current) use of anticoagulants; R30.0 Dysuria; Z95.1 Presence of aortocoronary bypass graft; Z95.2 Presence of prosthetic heart valve
CPT/HCPCS: 71046; 80053; 81001; 85025; 85610; 87086; 87088; 99285

== ENCOUNTER 2023-03-08 07:58 | Outpatient (RCR) | payer MEDICARE, OTHER, SELFPAY ==
[2023-02-18 20:50] VITALS: BMI 25.5
[2023-02-21 10:23] LABS: International Normalized Ratio 2.4; Prothrombin Time (Protime)PT. 26.1 SECONDS (11.7-14.9)
[2023-03-08 10:29] LABS: International Normalized Ratio 2.7; Prothrombin Time (Protime)PT. 28.7 SECONDS (11.7-14.9)
== END 2023-03-20 05:16 | disposition home or self-care (01) ==
LOC: MTLAB 07:58
PROVIDERS: Family Provider Family Medicine; PCP Family Medicine; Referring Provider Physician Assistant Medical; Visit Provider Physician Assistant Medical
DX: Z79.01 Long term (current) use of anticoagulants (principal); Z95.2 Presence of prosthetic heart valve
CPT/HCPCS: 36415; 85610

== ENCOUNTER 2023-04-05 08:27 | Outpatient (RCR) | payer MEDICARE, OTHER, SELFPAY ==
[2023-03-20 05:17] VITALS: BMI 25.5
[2023-04-05 10:52] LABS: Prothrombin Time (Protime)PT. 31.2 SECONDS (11.7-14.9)
== END 2023-04-05 09:27 | disposition home or self-care (01) ==
LOC: MTLAB 08:27
PROVIDERS: Family Provider Family Medicine; PCP Family Medicine; Referring Provider Physician Assistant Medical; Visit Provider Physician Assistant Medical
DX: Z79.01 Long term (current) use of anticoagulants (principal); Z95.2 Presence of prosthetic heart valve
CPT/HCPCS: 36415; 85610

== ENCOUNTER 2023-05-03 08:48 | Outpatient (RCR) | payer MEDICARE, OTHER, SELFPAY ==
[2023-04-21 08:03] VITALS: BMI 25.5
[2023-05-03 10:00] LABS: International Normalized Ratio 2.5; Prothrombin Time (Protime)PT. 27.3 SECONDS (11.7-14.9)
== END 2023-05-03 18:00 | disposition home or self-care (01) ==
LOC: MTLAB 08:48
PROVIDERS: Family Provider Family Medicine; PCP Family Medicine; Referring Provider Physician Assistant Medical; Visit Provider Physician Assistant Medical
DX: Z79.01 Long term (current) use of anticoagulants (principal); Z95.2 Presence of prosthetic heart valve
CPT/HCPCS: 36415; 85610; A4216

== ENCOUNTER 2023-06-14 08:24 | Outpatient (RCR) | payer MEDICARE, OTHER, SELFPAY ==
[2023-05-21 02:20] VITALS: BMI 25.5
[2023-05-31 10:46] LABS: International Normalized Ratio 2.2; Prothrombin Time (Protime)PT. 24.7 SECONDS (11.7-14.9)
[2023-05-31 11:13] LABS: ALB/GLOB Ratio 0.9 RATIO (0.9-2.4); AST(SGOT) 33 U/L (15-37); Alanine Aminotransfer ALT/SGPT 23 U/L (16-61); Albumin, Serum 3.3 g/dL (3.2-5.0); Alkaline Phosphatase 80 U/L (45-117); Anion Gap 3 (5-15); BUN 18 mg/dL (7-18); BUN/Creat Ratio 15.5 RATIO (10-20); Calcium,Total 8.9 mg/dL (8.5-10.1); Chloride 107 mmol/L (98-107); Creatinine, Serum 1.16 mg/dL (0.70-1.30); EST Glomerular Filtration Rate 65 mL/min (>60); Est Glom Filt Rate - Afr Amer 78 mL/min (>60); Globulin 3.8 g/dL (2.2-4.2); Glucose 97 mg/dL (74-106); Potassium 4.6 mmol/L (3.5-5.1); Protein, Total 7.1 g/dL (6.4-8.2); Sodium Level 138 mmol/L (136-145)
[2023-06-14 10:20] LABS: Prothrombin Time (Protime)PT. 31.9 SECONDS (11.7-14.9)
== END 2023-06-20 18:00 | disposition home or self-care (01) ==
LOC: MTLAB 08:24
PROVIDERS: Family Provider Family Medicine; PCP Family Medicine; Referring Provider Physician Assistant Medical; Visit Provider Physician Assistant Medical
DX: Z79.01 Long term (current) use of anticoagulants (principal); Z95.2 Presence of prosthetic heart valve
CPT/HCPCS: 36415; 80053; 85610

== ENCOUNTER 2023-07-12 08:42 | Outpatient (RCR) | payer MEDICARE, OTHER, SELFPAY ==
[2023-06-21 02:18] VITALS: BMI 25.5
[2023-07-12 10:52] LABS: International Normalized Ratio 3.1; Prothrombin Time (Protime)PT. 32.5 SECONDS (11.7-14.9)
== END 2023-07-12 18:00 | disposition home or self-care (01) ==
LOC: MTLAB 08:42
PROVIDERS: Family Provider Family Medicine; PCP Family Medicine; Referring Provider Physician Assistant Medical; Visit Provider Physician Assistant Medical
DX: Z79.01 Long term (current) use of anticoagulants (principal); Z95.2 Presence of prosthetic heart valve
CPT/HCPCS: 36415; 85610

== ENCOUNTER 2023-08-09 08:45 | Outpatient (RCR) | payer MEDICARE, OTHER, SELFPAY ==
[2023-07-22 01:58] VITALS: BMI 25.5
[2023-08-09 10:27] LABS: International Normalized Ratio 2.9; Prothrombin Time (Protime)PT. 30.7 SECONDS (11.7-14.9)
== END 2023-08-09 18:00 | disposition home or self-care (01) ==
LOC: MTLAB 08:45
PROVIDERS: Family Provider Family Medicine; PCP Family Medicine; Referring Provider Physician Assistant Medical; Visit Provider Physician Assistant Medical
DX: Z79.01 Long term (current) use of anticoagulants (principal); Z95.2 Presence of prosthetic heart valve
CPT/HCPCS: 36415; 85610

== ENCOUNTER 2023-08-30 08:46 | Outpatient (RCR) | payer MEDICARE, OTHER, SELFPAY ==
[2023-08-21 04:57] VITALS: BMI 25.5
[2023-08-30 10:39] LABS: International Normalized Ratio 3.2; Prothrombin Time (Protime)PT. 33.2 SECONDS (11.7-14.9)
== END 2023-08-30 18:00 | disposition home or self-care (01) ==
LOC: MTLAB 08:46
PROVIDERS: Family Provider Family Medicine; PCP Family Medicine; Referring Provider Physician Assistant Medical; Visit Provider Physician Assistant Medical
DX: Z79.01 Long term (current) use of anticoagulants (principal); Z95.2 Presence of prosthetic heart valve
CPT/HCPCS: 36415; 85610

== ENCOUNTER 2023-09-27 09:19 | Outpatient (RCR) | payer MEDICARE, OTHER, SELFPAY ==
[2023-09-20 23:06] VITALS: BMI 25.5
[2023-09-27 10:25] LABS: Prothrombin Time (Protime)PT. 31.7 SECONDS (11.7-14.9)
== END 2023-10-20 18:00 | disposition home or self-care (01) ==
LOC: MTLAB 09:19
PROVIDERS: Family Provider Family Medicine; PCP Family Medicine; Referring Provider Physician Assistant Medical; Visit Provider Physician Assistant Medical
DX: Z79.01 Long term (current) use of anticoagulants (principal); Z95.2 Presence of prosthetic heart valve
CPT/HCPCS: 36415; 85610

== ENCOUNTER 2023-11-01 08:51 | Outpatient (RCR) | payer MEDICARE, OTHER, SELFPAY ==
[2023-10-21 04:18] VITALS: BMI 25.5
[2023-10-25 12:39] LABS: International Normalized Ratio 3.7; Prothrombin Time (Protime)PT. 37.3 SECONDS (11.7-14.9)
[2023-11-01 10:29] LABS: International Normalized Ratio 2.4; Prothrombin Time (Protime)PT. 26.6 SECONDS (11.7-14.9)
== END 2023-11-20 18:00 | disposition home or self-care (01) ==
LOC: MTLAB 08:51
PROVIDERS: Family Provider Family Medicine; PCP Family Medicine; Referring Provider Physician Assistant Medical; Visit Provider Physician Assistant Medical
DX: Z79.01 Long term (current) use of anticoagulants (principal); Z95.2 Presence of prosthetic heart valve
CPT/HCPCS: 36415; 85610

== ENCOUNTER → 2023-12-01 | Outpatient (CLI) | payer MEDICARE, OTHER, SELFPAY ==
[2023-12-01 10:34] LABS: ALB/GLOB Ratio 0.9 RATIO (0.9-2.4); AST(SGOT) 32 U/L (15-37); Alanine Aminotransfer ALT/SGPT 23 U/L (16-61); Albumin, Serum 3.4 g/dL (3.2-5.0); Alkaline Phosphatase 84 U/L (45-117); Anion Gap 1 (5-15); BUN 22 mg/dL (7-18); BUN/Creat Ratio 17.1 RATIO (10-20); Calcium,Total 8.7 mg/dL (8.5-10.1); Chloride 109 mmol/L (98-107); Cholesterol 148 mg/dL (200); Creatinine, Serum 1.29 mg/dL (0.70-1.30); EST Glomerular Filtration Rate 57 mL/min (>60); Est Glom Filt Rate - Afr Amer 69 mL/min (>60); Globulin 3.8 g/dL (2.2-4.2); Glucose 94 mg/dL (74-106); High Density Lipoprotein 51 mg/dL; Potassium 4.3 mmol/L (3.5-5.1); Protein, Total 7.2 g/dL (6.4-8.2); Sodium Level 141 mmol/L (136-145); Triglycerides 209 mg/dL; Very Low Density Lipoprotein 42 mg/dL (5-40)
== END | disposition home or self-care (01) ==
LOC: MTLAB 09:15
PROVIDERS: PCP Family Medicine; Referring Provider Family Medicine; Visit Provider Family Medicine
DX: I10 Essential (primary) hypertension (principal)
CPT/HCPCS: 36415; 80053; 80061

== ENCOUNTER 2023-12-21 07:54 | Outpatient (RCR) | payer MEDICARE, OTHER, SELFPAY ==
[2023-11-20 23:29] VITALS: BMI 25.5
[2023-11-22 10:24] LABS: International Normalized Ratio 3.2; Prothrombin Time (Protime)PT. 32.8 SECONDS (11.7-14.9)
[2023-12-21 10:16] LABS: International Normalized Ratio 2.8; Prothrombin Time (Protime)PT. 30.1 SECONDS (11.7-14.9)
== END 2023-12-21 18:00 | disposition home or self-care (01) ==
LOC: MTLAB 07:54
PROVIDERS: Family Provider Family Medicine; PCP Family Medicine; Referring Provider Physician Assistant Medical; Visit Provider Physician Assistant Medical
DX: Z79.01 Long term (current) use of anticoagulants (principal); Z95.2 Presence of prosthetic heart valve
CPT/HCPCS: 36415; 85610

== ENCOUNTER 2024-01-17 08:41 | Outpatient (RCR) | payer MEDICARE, OTHER, SELFPAY ==
[2023-12-21 23:36] VITALS: BMI 25.5
[2024-01-17 10:30] LABS: International Normalized Ratio 3.2; Prothrombin Time (Protime)PT. 32.3 SECONDS (11.7-14.9)
== END 2024-01-19 18:00 | disposition home or self-care (01) ==
LOC: MTLAB 08:41
PROVIDERS: Nurse Practitioner Family; Family Provider Family Medicine; PCP Family Medicine; Referring Provider Physician Assistant Medical; Visit Provider Physician Assistant Medical
DX: Z79.01 Long term (current) use of anticoagulants (principal); Z95.2 Presence of prosthetic heart valve; Q23.1 Congenital insufficiency of aortic valve; Z98.890 Other specified postprocedural states
CPT/HCPCS: 36415; 85610

== ENCOUNTER 2024-02-14 09:16 | Outpatient (RCR) | payer MEDICARE, OTHER, SELFPAY ==
[2024-01-20 02:15] VITALS: BMI 25.5
[2024-02-14 12:33] LABS: International Normalized Ratio 2.8; Prothrombin Time (Protime)PT. 29.3 SECONDS (11.7-14.9)
== END 2024-02-19 02:03 | disposition home or self-care (01) ==
LOC: MTLAB 09:16
PROVIDERS: Family Provider Family Medicine; PCP Family Medicine; Referring Provider Physician Assistant Medical; Visit Provider Physician Assistant Medical
DX: Z79.01 Long term (current) use of anticoagulants (principal); Z95.2 Presence of prosthetic heart valve; Q23.1 Congenital insufficiency of aortic valve; Z98.890 Other specified postprocedural states
CPT/HCPCS: 36415; 85610

== ENCOUNTER 2024-03-13 08:50 | Outpatient (RCR) | payer MEDICARE, OTHER, SELFPAY ==
[2024-02-19 02:03] VITALS: BMI 25.5
[2024-03-13 10:57] LABS: International Normalized Ratio 2.6; Prothrombin Time (Protime)PT. 27.6 SECONDS (11.7-14.9)
== END 2024-03-20 21:58 | disposition home or self-care (01) ==
LOC: MTLAB 08:50
PROVIDERS: Family Provider Family Medicine; PCP Family Medicine; Referring Provider Physician Assistant Medical; Visit Provider Physician Assistant Medical
DX: Z79.01 Long term (current) use of anticoagulants (principal); Z95.2 Presence of prosthetic heart valve; Q23.1 Congenital insufficiency of aortic valve; Z98.890 Other specified postprocedural states
CPT/HCPCS: 36415; 85610

== ENCOUNTER → 2024-03-15 | Outpatient (CLI) | payer MEDICARE, OTHER, SELFPAY | END | disposition home or self-care (01) | LOC: PSN 08:50 | PROVIDERS: PCP Family Medicine; Referring Provider Nurse Practitioner Family; Visit Provider Nurse Practitioner Family | DX: R00.1 Bradycardia, unspecified (principal); Z98.890 Other specified postprocedural states; I25.10 Atherosclerotic heart disease of native coronary artery without angina pectoris | CPT/HCPCS: 93225; 93226 ==

== ENCOUNTER → 2024-03-26 | Outpatient (CLI) | payer MEDICARE, OTHER, SELFPAY ==
[2024-03-26 10:28] LABS: Absolute Lymphocyte Count 1.05 X10^3/uL (0.83-4.51); Basophil# 0.07 X10^3/uL; Basophil% 1.4 % (0-1); Eosinophil# 0.16 X10^3/uL; Eosinophils% 3.3 % (0-5); Hematocrit 45.3 % (40-54); Hemoglobin 13.9 g/dL (13.0-16.5); Lymphocyte # 1.05 X10^3/ul (0.83-4.51); Lymphocyte % 21.6 % (19-41); Mean Corp Hgb Conc 30.7 g/dL (32-36); Mean Corpuscular Hgb 29.3 pg (27.0-32.0); Mean Corpuscular Volume 95.6 fL (80-94); Mean Platelet Vol. 10.4 fl (6.2-12.0); Monocyte# 0.55 X10^3/uL; Monocyte% 11.3 % (0-10); NRBC Flagged by Analyzer 0 % (0-5); Neutrophil # 3.03 X10^3/uL (2.7-7.7); Neutrophil % 62.2 % (47-70); Platelet Count 188 K/mm3 (150-450); RBC Distribution Width CV 13.7 % (11.6-14.6); RBC Distribution Width SD 48.3 fl (35.1-43.9); Red Blood Count 4.74 M/mm3 (4.6-6.2); White Blood Count 4.9 K/mm3 (4.4-11.0)
[2024-03-26 11:34] LABS: ALB/GLOB Ratio 0.9 RATIO (0.9-2.4); AST(SGOT) 39 U/L (15-37); Alanine Aminotransfer ALT/SGPT 23 U/L (16-61); Albumin, Serum 3.4 g/dL (3.2-5.0); Alkaline Phosphatase 78 U/L (45-117); Anion Gap 4 (5-15); BUN 19 mg/dL (7-18); BUN/Creat Ratio 15.3 RATIO (10-20); Calcium,Total 8.7 mg/dL (8.5-10.1); Chloride 106 mmol/L (98-107); Creatinine, Serum 1.24 mg/dL (0.70-1.30); EST Glomerular Filtration Rate 60 mL/min (>60); Est Glom Filt Rate - Afr Amer 72 mL/min (>60); Globulin 3.8 g/dL (2.2-4.2); Glucose 93 mg/dL (74-106); Magnesium 2.3 mg/dL (1.6-2.6); Potassium 4.3 mmol/L (3.5-5.1); Protein, Total 7.2 g/dL (6.4-8.2); Sodium Level 139 mmol/L (136-145); T4 Free Direct 1.01 ng/dL (0.76-1.46); Thyroid Stim Hormone (TSH) 2.56 uIU/mL (0.358-3.74)
== END | disposition home or self-care (01) ==
PROVIDERS: PCP Family Medicine; Referring Provider Nurse Practitioner Family; Visit Provider Nurse Practitioner Family
DX: E78.5 Hyperlipidemia, unspecified (principal); R00.1 Bradycardia, unspecified; I10 Essential (primary) hypertension; Z95.1 Presence of aortocoronary bypass graft; I49.3 Ventricular premature depolarization; Z95.2 Presence of prosthetic heart valve; Q23.1 Congenital insufficiency of aortic valve; I25.10 Atherosclerotic heart disease of native coronary artery without angina pectoris
CPT/HCPCS: 36415; 80053; 83735; 84439; 84443; 85025

== ENCOUNTER 2024-04-10 10:41 | Outpatient (RCR) | payer MEDICARE, OTHER, SELFPAY ==
[2024-03-20 21:58] VITALS: BMI 25.5
[2024-04-10 13:30] LABS: International Normalized Ratio 2.5; Prothrombin Time (Protime)PT. 26.6 SECONDS (11.7-14.9)
== END 2024-04-20 18:00 | disposition home or self-care (01) ==
LOC: MTLAB 10:41
PROVIDERS: Family Provider Family Medicine; PCP Family Medicine; Referring Provider Physician Assistant Medical; Visit Provider Physician Assistant Medical
DX: Z79.01 Long term (current) use of anticoagulants (principal); Z95.2 Presence of prosthetic heart valve; Q23.1 Congenital insufficiency of aortic valve; Z98.890 Other specified postprocedural states
CPT/HCPCS: 36415; 85610

== ENCOUNTER → 2024-04-23 | Outpatient (CLI) | payer MEDICARE, OTHER, SELFPAY ==
--- NOTE | 2024-04-23 07:48 | ECHOD_ITS ---
Reason For Study: ASHD/CAD Procedure This was a 2D Doppler, Color Flow transthoracic echocardiogram. The study was technically difficult. Exam performed in department. Left Ventricle Normal LV size. Mild concentric left ventricular hypertrophy. Left ventricular systolic function is normal. The estimated ejection fraction is 60 %. Stage 1 diastolic dysfunction. No regional wall motion abnormalities noted. Right Ventricle Normal RV size. Normal systolic function. Atria Normal left atrium. Normal right atrium. Mitral Valve Normal mitral valve. Mild (1+) mitral valve insufficiency. Tricuspid Valve Normal tricuspid valve. Mild tricuspid valve insufficiency. Pulmonary artery systolic pressure is 26 mmHg. Aortic Valve Mean aortic valve gradient 3 mmHg. Stable appearing mechanical aortic valve apparatus. Pulmonic Valve Normal pulmonic valve. Great Vessels Normal aortic root. The pulmonary artery is normal size. Inferior vena cava collapse with respiration. Pericardium/Pleural No pericardial effusion. MMode/2D Measurements & Calculations LVIDd: 4.9 cm IVSd: 1.4 cm LVOT diam: 2.1 cm LVIDs: 3.6 cm LVPWd: 1.4 cm LVOT area: 3.5 cm2 RVDd: 4.2 cm FS: 26.7 % Ao root diam: 3.7 cm LAV(MOD-bp): 58.9 ml LA A4 area: 20.7 cm2 LA dimension: 3.9 cm LAV(MOD-bp) Indexed: 30.3 ml/m2 LAV(MOD-sp2): 54.9 ml LAV(MOD-sp4): 58.2 ml TAPSE: 1.2 cm RA A4 area: 20.2 cm2 Time Measurements MV dec time: 0.28 sec Doppler Measurements & Calculations MV E max jeffrey: 53.2 cm/sec Lat Peak E' Jeffrey: 7.8 cm/sec Med Peak E' Jeffrey: 5.8 cm/sec MV A max jeffrey: 64.0 cm/sec E/E' lat: 6.8 E/E' med: 9.2 MV E/A: 0.83 MV V2 max: 79.7 cm/sec MV P1/2t max jeffrey: 75.2 cm/sec Ao V2 max: 123.7 cm/sec MV max P.5 mmHg MV P1/2t: 97.8 msec Ao max P.1 mmHg MV V2 mean: 37.0 cm/sec MV dec slope: 225.3 cm/sec2 Ao V2 mean: 80.3 cm/sec MV mean P.70 mmHg Ao mean P.1 mmHg MV V2 VTI: 29.6 cm MVA(P1/2t): 2.2 cm2 Ao V2 VTI: 28.8 cm MVA(VTI): 1.9 cm2 AV (velocity ratio): 0.54 AARON(I,D): 1.9 cm2 AARON(V,D): 1.9 cm2 LV V1 max: 68.2 cm/sec MR max jeffrey: 597.0 cm/sec SV(LVOT): 55.2 ml LV V1 max P.9 mmHg MR max P.6 mmHg LV V1 mean P.88 mmHg MR mean jeffrey: 458.0 cm/sec LV V1 mean: 43.9 cm/sec MR mean P.2 mmHg LV V1 VTI: 15.6 cm MR VTI: 228.3 cm PA V2 max: 95.7 cm/sec TR max jeffrey: 240.6 cm/sec TR max P.2 mmHg ECHO/Echo Complete Interpretation Summary Normal LV size. Mild concentric left ventricular hypertrophy. Left ventricular systolic function is normal. The estimated ejection fraction is 60 %. Stage 1 diastolic dysfunction. Mean aortic valve gradient 3 mmHg. Stable appearing mechanical aortic valve apparatus. Ordering Physician: Dewayne Betts Referring Physician: Kameron Hayes Performed By: Derek Bhakta RCS
== END | disposition home or self-care (01) ==
LOC: CVS 07:47
PROVIDERS: PCP Family Medicine; Referring Provider Nurse Practitioner Family; Visit Provider Nurse Practitioner Family
DX: I25.10 Atherosclerotic heart disease of native coronary artery without angina pectoris (principal); Z95.2 Presence of prosthetic heart valve; Z98.890 Other specified postprocedural states
CPT/HCPCS: 93306

== ENCOUNTER 2024-05-08 08:24 | Outpatient (RCR) | payer MEDICARE, OTHER, SELFPAY ==
[2024-04-23 08:22] VITALS: BMI 25.5
[2024-05-08 10:19] LABS: International Normalized Ratio 2.8; Prothrombin Time (Protime)PT. 29.3 SECONDS (11.7-14.9)
== END 2024-05-08 18:00 | disposition home or self-care (01) ==
LOC: MTLAB 08:24
PROVIDERS: Family Provider Family Medicine; PCP Family Medicine; Referring Provider Physician Assistant Medical; Visit Provider Physician Assistant Medical
DX: Z79.01 Long term (current) use of anticoagulants (principal); Z95.2 Presence of prosthetic heart valve; Z98.890 Other specified postprocedural states; Q23.1 Congenital insufficiency of aortic valve
CPT/HCPCS: 36415; 85610

== ENCOUNTER 2024-06-05 08:17 | Outpatient (RCR) | payer MEDICARE, OTHER, SELFPAY ==
[2024-05-21 04:18] VITALS: BMI 25.5
[2024-06-05 10:11] LABS: Prothrombin Time (Protime)PT. 31.2 SECONDS (11.7-14.9)
== END 2024-06-20 18:00 | disposition home or self-care (01) ==
LOC: MTLAB 08:17
PROVIDERS: Family Provider Family Medicine; PCP Family Medicine; Referring Provider Physician Assistant Medical; Visit Provider Physician Assistant Medical
DX: Z79.01 Long term (current) use of anticoagulants (principal); Z95.2 Presence of prosthetic heart valve; Q21.3 Tetralogy of Fallot; Z79.890 Hormone replacement therapy
CPT/HCPCS: 36415; 85610

== ENCOUNTER 2024-07-03 09:06 | Outpatient (RCR) | payer MEDICARE, OTHER, SELFPAY ==
[2024-06-20 23:12] VITALS: BMI 25.5
[2024-07-03 12:20] LABS: International Normalized Ratio 2.9; Prothrombin Time (Protime)PT. 29.9 SECONDS (11.7-14.9)
== END 2024-07-03 18:00 | disposition home or self-care (01) ==
LOC: MTLAB 09:06
PROVIDERS: Family Provider Family Medicine; PCP Family Medicine; Referring Provider Physician Assistant Medical; Visit Provider Physician Assistant Medical
DX: Z79.01 Long term (current) use of anticoagulants (principal); Z95.2 Presence of prosthetic heart valve
CPT/HCPCS: 36415; 85610

== ENCOUNTER 2024-07-25 09:00 | Outpatient (RCR) | payer MEDICARE, OTHER, SELFPAY ==
--- NOTE | 2024-06-11 09:23 | HP.PTEVAL_ITS ---
Patient's Visit Information Visit Information Visit Information: LALY AYALA is a 78 year old M referred to Physical Therapy by Dr. Kameron Hayes MD with a diagnosis of poor posture. Date of Evaluation: 06/11/24 Physical Therapist: Dayday Barr DPT, OCS, CSCS Visit Plan Frequency: 2x /Week Duration: 4-6 Weeks Plan: 2xx/week for 4-6 weeks as needed for 1. posture focussing upright [id number] pec stretches and hip flexor stretches 2. postural strength adn LE strength 3. balance and LE coordination , weight shifting exercises Please wwork all to I home program as safety allows. IE HEP: supine flat lie palms up 5 min 3x/day and use cane 100% of time Subjective Subjective: of 46 years ashok with him. Doctor sent over at his request for balance and posture. Has fallen a few times. Latest was catching toe and falling onto garage door. Wasn't paying attention. Typically catches foot butthen says doesn't fall that much. says sitting on couch at hoe brings head forward. They are also worried about his forward head posture which is worsening. No pain. Enjoys tilling and mowing the garden. Walks 4 miles or exercises in [place] on [employer] and [place] one hour. Got light weights that he walks with. Sleep is OK, Afternoon sleeps in a sitting position and hunches forward. Not employed, retired from [employer]. Hobbies: mow yard riding mow and has 1.5 acres. Likes to do word search. No neuropathy, no dm, no dizzyness Has steps which are not a problem. Has cane and uses it for his long walks. 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 Hunched Forward and hard to get to neutral. short steps I without cane, better step length with cane or walker. Transfers I without UE today but slow and lacks FW weight shift gait and transfers. I bed and chair. Steps reciprocal with one rail, again lacking FW weight shift and pulling with UE. tightness obvious in hip flexors with tightness in LB in supine lie and HS at - 40 90 /90 test. Sits leaning BW at hips but hunched FW at waist and flat affect with very little positon correction even when cued. hip strength abd and ext 3, flexion 3+ knee strength 4- flex and ext ankle strength 3+, poor coordination and muscle control at ankle muscles Sensation WNL to gross light touch but proprioceptiona and joint sense seem at deficit with coordination to reciprocal tapping being exceedingly challenging as is heel to levine test. reflexes 2/3 patella and achilles Balance/Special Test Scores Functional Gait Assessment Score: 18 % Disability: 40.0000 Lower Extremity Functional Score: 52 30 Second Chair Rise Test Seconds: 8 Goals Goal 1:: 12 on 30 SSTS to show improved strength Goal Time Frame: 4-6 Weeks Goal 2:: 21 on FGA to reduce fall risk Goal Time Frame: 4-6 Weeks Goal 3:: compliant with 100% cane usage Goal Time Frame: 4-6 Weeks Goal 4:: Pateint show upright posture 50% of time without VC in sitting and standing/moving Goal Time Frame: 4-6 Weeks Goal 5:: Pt feel 50% better in overall mobility and safety Goal Time Frame: 4-6 Weeks Rehabilitation Potential Physical Therapy Diagnosis: weakness, coordination deficits creaint poor postural awareness and resulting immobility and safety concerns. Rehabilitation Potential: Fair Anticipated Interventions Patient/Client Instruction: Educate patient on: Condition and Plan of Care For the Purpose of:: To increase ROM, To improve nutrient delivery to tissue, To improve muscle performance and motor function, To increase tolerance to activity/condition/position, To improve ability of physical actions for home/community/work/leisure, To improve gait and locomotor functions and To improve safety with gait Therapeutic Exercise to Include: Strength training, Balance training, Postural training, Flexibilty training, Passive ROM and Active ROM For the Purpose of:: To increase ROM, To improve nutrient delivery to tissue, To improve muscle performance and motor function, To increase tolerance to activity/condition/position, To improve performance and independence with ADL's, To improve ability of physical actions for home/community/work/leisure, To improve gait and locomotor functions and To improve safety Text: Thank you for the opportunity to evaluate your patient. For Medicare and Medicare HMO plans, please review the plan of care and approve it. It will need to be FAXED BACK to us at [phone] for Medicare purposes. For Medicare only, by signing this I certify the plan of care. Please let me know if there are questions or concerns regarding this plan of care. Physician Signature: Date:
--- NOTE | 2024-07-25 09:10 | HP.PTDCSUM ---
Discharge Summary D/C summary: It has been my pleasure to treat LALY AYALA referred by Dr. Kameron Hayes MD, with the diagnosis of poor posture for a total of 10 visit(s). Discharge Date: Please see the following information for a summary of their discharge status. Subjective Subjective: No problems and doing well, exercises going well every other day. They are challenging. Continue at home is what he wants to do. Activities at home are pretty normal. Sleep is normal. No pain.No falls. Overall Improvement % Improvement: 90 Objective Objective/Function: improvement still noted on FGA and 30 SSTS. pt wishes to continue with these exercises himself at home 4-7x/week. Goals Goal 1:: 12 on 30 SSTS to show improved strength Goal Progress: 11 Goal 2:: 21 on FGA to reduce fall risk Goal Progress: Goal Met Goal 3:: compliant with 100% cane usage Goal Progress: outdoors and about Goal 4:: Pateint show upright posture 50% of time without VC in sitting and standing/moving Goal Progress: Goal Met Goal 5:: Pt feel 50% better in overall mobility and safety Goal Progress: Goal Met Plan Plan: d/c D/C Information d/c sentence: If there are questions or concerns regarding this patient's physical therapy, please feel free to call me at [phone]. Thank you for the referral of this patient. Sincerely, Dayday Barr, DPT, OCS, CSCS Balance/Gait/Functional tests Balance/Special Test Scores Functional Gait Assessment Score: 25 % Disability: 16.6700 Lower Extremity Functional Score: 41 30 Second Chair Rise Test Seconds: 11 Improvement % Improvement: 90
== END 2024-07-25 13:22 | disposition home or self-care (01) ==
LOC: PT 09:00
PROVIDERS: PCP Family Medicine; Referring Provider Family Medicine; Visit Provider Family Medicine
DX: R29.3 Abnormal posture (principal)
CPT/HCPCS: 97110; 97162; 97530

== ENCOUNTER 2024-07-31 08:34 | Outpatient (RCR) | payer MEDICARE, OTHER, SELFPAY ==
[2024-07-21 21:04] VITALS: BMI 25.5
[2024-07-31 10:04] LABS: International Normalized Ratio 2.9
== END 2024-07-31 18:00 | disposition home or self-care (01) ==
LOC: MTLAB 08:34
PROVIDERS: Family Provider Family Medicine; PCP Family Medicine; Referring Provider Physician Assistant Medical; Visit Provider Physician Assistant Medical
DX: Z79.01 Long term (current) use of anticoagulants (principal); Z95.2 Presence of prosthetic heart valve; Z98.890 Other specified postprocedural states; Q23.1 Congenital insufficiency of aortic valve
CPT/HCPCS: 36415; 85610

== ENCOUNTER → 2024-08-20 | Outpatient (CLI) | payer MEDICARE, OTHER, SELFPAY ==
[2024-08-20 17:58] LABS: PSA,Total - Annual Screen 1.38 ng/mL (0.00-4.00)
== END | disposition home or self-care (01) ==
LOC: MFPLAB 14:59
PROVIDERS: PCP Family Medicine; Visit Provider Registered Nurse
DX: Z12.5 Encounter for screening for malignant neoplasm of prostate (principal)
CPT/HCPCS: 36415; 84153; G0103

== ENCOUNTER → 2024-09-10 | Outpatient (CLI) | payer MEDICARE, OTHER, SELFPAY ==
--- NOTE | 2024-09-10 12:59 | RAD_ITS ---
EXAM: XR LEFT SHOULDER COMPLETE, 2 OR MORE VIEWS CLINICAL INDICATION: PAIN TECHNIQUE: Two or more views of the left shoulder. COMPARISON: No relevant prior studies available. FINDINGS: BONES/JOINTS: Unremarkable. No acute fracture. No subluxation. Normal alignment. Preservation of the joint space. No sclerotic or destructive changes observed. SOFT TISSUES: Unremarkable. No soft tissue swelling or gas. No radiopaque foreign body. RAD/Shoulder min 2 Views IMPRESSION: Negative left shoulder x-rays. Electronically Signed: Moshe Covington MD at 0:10 EDT ,
--- NOTE | 2024-09-10 12:59 | RAD_ITS ---
EXAM: XR RIGHT SHOULDER COMPLETE, 2 OR MORE VIEWS CLINICAL INDICATION: PAIN TECHNIQUE: Two or more views of the right shoulder. COMPARISON: No relevant prior studies available. FINDINGS: BONES/JOINTS: Unremarkable. No acute fracture. No subluxation. Normal alignment. Preservation of the joint space. No sclerotic or destructive changes observed. SOFT TISSUES: Unremarkable. No soft tissue swelling or gas. No radiopaque foreign body. RAD/Shoulder min 2 Views IMPRESSION: Negative right shoulder x-rays. Electronically Signed: Moshe Covington MD at 0:10 EDT ,
== END | disposition home or self-care (01) ==
PROVIDERS: PCP Family Medicine; Referring Provider Family Medicine; Visit Provider Family Medicine
DX: M25.511 Pain in right shoulder (principal); M25.512 Pain in left shoulder
CPT/HCPCS: 73030

== ENCOUNTER 2024-09-18 09:11 | Outpatient (RCR) | payer MEDICARE, OTHER, SELFPAY ==
[2024-08-21 04:49] VITALS: BMI 25.5
[2024-08-28 10:32] LABS: International Normalized Ratio 3.1; Prothrombin Time (Protime)PT. 31.9 SECONDS (11.7-14.9)
[2024-09-18 10:29] LABS: International Normalized Ratio 2.8; Prothrombin Time (Protime)PT. 29.3 SECONDS (11.7-14.9)
== END 2024-09-18 18:00 | disposition home or self-care (01) ==
LOC: MTLAB 09:11
PROVIDERS: Family Provider Family Medicine; PCP Family Medicine; Referring Provider Physician Assistant Medical; Visit Provider Physician Assistant Medical
DX: Z79.01 Long term (current) use of anticoagulants (principal); Z95.2 Presence of prosthetic heart valve; Q23.1 Congenital insufficiency of aortic valve; Z98.890 Other specified postprocedural states
CPT/HCPCS: 36415; 85610

== ENCOUNTER 2024-10-02 09:00 | Outpatient (RCR) | payer MEDICARE, OTHER, SELFPAY ==
--- NOTE | 2024-09-17 09:53 | HP.PTEVAL_ITS ---
Patient's Visit Information Visit Information Visit Information: LALY AYALA is a 79 year old M referred to Physical Therapy by Dr. Kameron Hayes MD with a diagnosis of Pain B shoulders. Date of Evaluation: 09/17/24 Physical Therapist: Dayday Barr, DPT, OCS, CSCS Visit Plan Frequency: 2x /Week Duration: 4-6 Weeks Plan: 2x/week for 4-6 weeks IE: pendulums, supine stick flexion and er, scap circles all 3x/day, activitiy modifcaiton and sleep positions, posture. MH and PROM shoulder with grade 1-2 joint mobs B, Postural correction with cervical retraction adn scap retraction stretches, strength RC and B scap/posture to HEP, Progression of shoulder ROM. Subjective Subjective: B shoulders started for a week or so. May have hurt doing stretches for LE. L pain greater than R. Worse lying on side or flat on back. Tried pendulum which helps. Has muscle reladxer but makes him unsteady so uses tylenol which helps some. Pain is top of shoulders with movement. Sleep is interrupted as he can only sleep for an hour or two. During the day lifting his arm is problematic or pushing to get out of chair. Basic ADLS are Ok but hurts to put on shirt/jacket, takes more time, shower and bathe I. Not employed. Hobbies are gardening Pain shoulder pain: Pain Intensity (Out of 10): 0 Pain Intensity Range: 0 and 7 Objective Objective: Posture is L sidetilted head, leaning L, max FW head and protracted scap, very little movement or corrections until cued. elevated R scap Tenderness present anterior shoulder joint and B supraspinatus and biceps tendon at groove minimally. cervical aROM SB R nil, L 20, retraction max limited, ext to 25 and rotation to 40 B without pain but feels stiff. scap aROM limited in retraction and depression, hard time coordinatiing movements B. Shoulder AROM 125 flexion and abduction, just lsight discomfort anterior shoulder, very stiff, PROM to 140 stiff. B er painful endrange adn 45 B, IR L4 with discomfort. elbow and wrist AROM WFL, has some dyskinesia scap and wrists, hands present since injury as infant. strength er painful B shoulders and 3+, IR 4- and no pain, elevation 3 and painful, bi and tri 4 no pain, wrist 4 no pain. sensation LE WNL to gross light touch B UE. reflexes 1/3 bi and triceps. + HK and neer, - ext rotation lag tests, suldus, - Balance/Special Test Scores Quick DASH Score: 61.3625 Goals Goal 1:: 140 aROM B shoulders without pain Goal Time Frame: 4-6 Weeks Goal 2:: Pain 0-1/10 at all times and 90% better overall. Goal Time Frame: 4-6 Weeks Goal 3:: Sleep without waking due to shoulders Goal Time Frame: 4-6 Weeks Goal 4:: I appropriate shoulder ex for posture and RC to minimize future problems. Goal Time Frame: 4-6 Weeks Rehabilitation Potential Physical Therapy Diagnosis: stiffness and weakness Rehabilitation Potential: Good Anticipated Interventions Patient/Client Instruction: Educate patient on: Condition and Risk Factors For the Purpose of:: To decrease pain, To increase ROM, To improve nutrient delivery to tissue, To improve muscle performance and motor function and To increase tolerance to activity/condition/position Therapeutic Exercise to Include: Strength training, Postural training, Passive ROM and Active ROM For the Purpose of:: To decrease pain, To increase ROM, To improve nutrient delivery to tissue, To improve muscle performance and motor function and To improve gait and locomotor functions Manual Therapy Techniques to Include: Mobilization, Passive ROM and Soft tissue mobilization For the Purpose of:: To decrease pain, To increase ROM and To improve nutrient delivery to tissue Thermo therapy (hot pack): Yes For the Purpose of:: To increase ROM and To improve nutrient delivery to tissue Text: Thank you for the opportunity to evaluate your patient. For Medicare and Medicare HMO plans, please review the plan of care and approve it. It will need to be FAXED BACK to us at [phone] for Medicare purposes. For Medicare only, by signing this I certify the plan of care. Please let me know if there are questions or concerns regarding this plan of care. Physician Signature: Date:____
--- NOTE | 2024-12-03 09:17 | HP.PT.NRP ---
Patient Information Patient Information: LALY AYALA was seen in my office for initial evaluation on 09/17/24. The following Plan of Care was established for this patient: POC Established Initial Frequency: 2x /Week Initial Duration: 4-6 Weeks Anticipated Interventions Patient/Client Instruction: Educate patient on: Condition and Risk Factors For the Purpose of:: To decrease pain, To increase ROM, To improve nutrient delivery to tissue, To improve muscle performance and motor function and To increase tolerance to activity/condition/position Therapeutic Exercise to Include: Strength training, Postural training, Passive ROM and Active ROM For the Purpose of:: To decrease pain, To increase ROM, To improve nutrient delivery to tissue, To improve muscle performance and motor function and To improve gait and locomotor functions Manual Therapy Techniques to Include: Mobilization, Passive ROM and Soft tissue mobilization For the Purpose of:: To decrease pain, To increase ROM and To improve nutrient delivery to tissue Thermo therapy (hot pack): Yes For the Purpose of:: To increase ROM and To improve nutrient delivery to tissue Last Seen Last Seen: This patient was last seen in our office 10/02/24. Pertinent comments regarding their Physical therapy will appear below: Pt seen 5 visits of POC and was getting better. Did not schedule or attend any further visits. At this point it has been over 2 months and I will discontinue due to non attendance. At this point I will be discontinuing this patient from physical therapy. I would be happy to see this patient again in the future if found appropriate by the physician. Thank you! Dayday Barr, DPT, OCS, CSCS Balance/Gait/Functional tests Balance/Special Test Scores Quick DASH Score: [phone]
== END 2024-10-02 19:00 | disposition home or self-care (01) ==
LOC: PT 09:00
PROVIDERS: PCP Family Medicine; Referring Provider Family Medicine; Visit Provider Family Medicine
DX: M25.511 Pain in right shoulder (principal); M25.512 Pain in left shoulder
CPT/HCPCS: 97110; 97140; 97161

== ENCOUNTER → 2024-10-03 | Outpatient (CLI) | payer MEDICARE, OTHER, SELFPAY ==
--- NOTE | 2024-10-03 11:10 | RAD_ITS ---
STUDY: X-RAY - UNILATERAL RIBS ( RIGHT ) REASON FOR EXAM: Male, 79 years old. RIB PAIN TECHNIQUE: 4 views of the right ribs. COMPARISON: Right shoulder radiographs dated 09/10/2024. FINDINGS: Normal visualized right ribs without a demonstrated fracture. The visualized lung is clear and expanded. There are sternal cerclage wires in place. RAD/Ribs Unil 2V No CXR IMPRESSION: Normal x-ray examination of the right ribs. Electronically Signed: Marcelo Chen MD at 15:26 EST ,
== END | disposition home or self-care (01) ==
LOC: MTRAD 11:03
PROVIDERS: PCP Family Medicine; Referring Provider Family Medicine; Visit Provider Family Medicine
DX: R07.81 Pleurodynia (principal)
CPT/HCPCS: 71100

== ENCOUNTER 2024-10-11 08:45 | Emergency (ER) | payer MEDICARE, OTHER, SELFPAY ==
[2024-10-11 08:46] VITALS: BP 133/67; PULSE 78; RESP 16; TEMP 36.9; O2SAT 98; BMI 26.2
--- NOTE | 2024-10-11 09:10 | EKG12_ITS ---
Test Reason : Blood Pressure : */* mmHG Vent. Rate : 74 BPM Atrial Rate : 74 BPM P-R Int : 184 ms QRS Dur : 80 ms QT Int : 392 ms P-R-T Axes : 32 24 64 degrees QTcB Int : 435 ms Normal sinus rhythm Normal ECG Confirmed by MIGUELINA MAYORGA ([id number]), continuity editor CHRISTIANO GRISSOM ([id number]) on 10/12/2024 11:54:41 AM Referred By: Confirmed By: MIGUELINA MAYORGA
--- NOTE | 2024-10-11 09:10 | EX.ED.DYSGE1 ---
HPI History of Present Illness Chief Complaint: Other, Pain/Inj Informant: patient and spouse/S.O. Narrative Narrative: 79-year-old male presenting to the emergency room with right thigh pain and swelling. Patient states that 2 days ago he went and had a medical massage. He forgot to mention that he had had a compound fracture to the right femur about 30 years ago that has metal in place. He states that he developed some pain over the lateral mid thigh near the surgical incision and it began to swell. He now notes some bruising in that area. It is painful to move. He notes that he is on Coumadin due to aortic valve replacement. He states he has never had swelling in in this area before. No reported fevers. Patient states that he was in atrial fibrillation per EMS. [facility] Medical History Aortic aneurysm Essential hypertension Bruising Premature complex, ventricular Bicuspid aortic valve group home current use of anticoagulant therapy Hyperlipidemia H/O echocardiogram (~11/2016) Atherosclerotic heart disease of cahto coronary artery without angina pectoris Renal insufficiency Home Medications ?Medication ?Instructions ?Recorded ?Last Taken ?Type aspirin 81 mg tablet,delayed 81 mg PO QDAY 11/22/17 Unknown History release [id number] 300 mcg-K 60 1 tab PO QDAY 11/23/17 Unknown History mcg-lycop 600 mcg-lutein 300 mcg tablet (Centrum Silver Men) pravastatin 40 mg tablet 40 mg PO DAILY 11/21/19 Unknown History amoxicillin 500 mg capsule 2,000 mg (4 x 500 mg) PO .COMPLEX 03/29/22 Unknown Rx #4 caps warfarin 2 mg tablet 2 mg PO .COMPLEX #70 TABLETS 03/19/24 Unknown Rx pantoprazole 40 mg tablet,delayed 40 mg PO DAILY #30 TABLETS 05/16/24 Unknown Rx release cyclobenzaprine 5 mg tablet 5 mg PO TID PRN 09/27/24 Unknown History acetaminophen 650 mg 650 mg PO Q12H PRN 10/03/24 Unknown History tablet,extended release (Tylenol 8 Hour) tramadol 50 mg tablet 50 mg PO TID PRN 10/03/24 Unknown History oxycodone 5 mg tablet 5 mg PO TID PRN pain 3 days #12 10/11/24 Unknown Rx tabs Allergy/AdvReac Type Severity Reaction Status Date / Time Sulfa (Sulfonamide Allergy Hives Verified 10/11/24 08:50 Antibiotics) Family History Father CAD (coronary artery disease) Hypertension Brother CAD (coronary artery disease) Surgical History History of coronary artery bypass surgery (~12/06/13) History of colonoscopy History of mechanical aortic valve replacement (~11/2013) Hx of appendectomy History of cardiac catheterization (~08/2013) History of aortic root repair (~12/06/13) Social History household members: spouse Smoking Status: Never smoker alcohol intake: never substance use type: does not use caffeine: No what type of physical activity do you participate in: walking ROS ROS ED Constitutional Constitutional ED: Denies chills, fever(s) or weight loss Eyes Eyes: Denies change in vision or diplopia ENT ENT ED: Denies ear pain, rhinorrhea or sore throat Cardiovascular Cardiovascular: Denies chest pain, orthopnea, palpitations or racing heartbeat Respiratory/Chest Respiratory/Chest: Denies cough, dyspnea or orthopnea Gastrointestinal Gastrointestinal: Denies abdominal pain, diarrhea, nausea or vomiting Genitourinary Genitourinary ED: Denies dysuria, hematuria or urinary frequency Musculoskeletal Musculoskeletal: Reports other Details: See history of present illness ; Denies arthralgias or myalgias Integumentary Denies abscess or rash Neurologic Neurologic: Denies headache(s) or weakness Psychiatric Psychiatric: Denies anxiety, depression, suicidal ideation or suicidal thoughts Endocrine Endocrinology: Denies polydipsia, polyphagia or polyuria Allergic/Immunologic Allergic/Immunologic ED: Denies mouth swelling, tongue swelling or urticaria EXAM Physical Exam Const Vital Signs: 10/11/24 08:46 10/11/24 08:50 Temperature 98.4 F Temperature Source Oral Pulse Rate 78 Respiratory Rate 16 Respiratory Effort Normal Non-Labored Respiratory Pattern Normal Blood Pressure 133/67 H Blood Pressure Mean 89 Pulse Ox 98 Oxygen Delivery Method Room Air Positive well nourished and well developed General Appearance ED: well developed and NAD HEENT Reports normocephalic, head/scalp atraumatic and moist mucous membranes Eyes PERRL and EOMs intact bilaterally Neck no lymphadenopathy, supple and no JVD Resp normal respiratory effort and clear to auscultation bilaterally Cardio regular rate, regular rhythm and no murmurs Rate: other Other Details: Click associated with valve replacement GI normal to inspection, nondistended, normoactive bowel sounds and non-tender Palpation: soft Back/Spine no CVA tenderness and normal ROM Extremity Extremity Narrative: Right thigh demonstrates 2 well-healed surgical incisions. Mid lateral thigh incision has a focal area of swelling along it within the center of it is some ecchymosis that is deep purple in nature. The swelling is fluctuant. It is not tense. There is no increased warmth or erythema. I do not appreciate any drainage at the site. General Extremety ED: Negative for edema General Extremity: Negative for edema Neuro oriented x3 and CN's II-XII intact bilaterally Sensorium / Orientation: alert Motor Exam: strength 5/5 throughout Psych mental status grossly normal Mood & Affect: Negative for depressed or tearful Skin no rashes or lesions noted and no wounds MDM MDM MDM Narrative Medical decision making narrative: Differential diagnosis includes hematoma supratherapeutic INR seroma abscess Patient is in normal sinus rhythm. Patient's white count 10.1 hemoglobin 11.7 platelet count of 223. INR is 5.7 creatinine 1.27 BUN of 21. Glucose 159. Patient was advised to hold his Coumadin dosing tonight and tomorrow and resume dosing on Tuesday. He needs to have his INR rechecked on Tuesday. I spoke with his parliamentary archivist office (Dr. Ku's nurse) who can assist him with this. My depend interpretation of the plain films of the left femur is no acute fracture. Evidence of prior healed fracture with intramedullary rodding. I do not believe that there is any surgical hardware in the area of the incision that would be causing a direct problem related to this. He was advised to monitor the area and to expect additional bruising to come to the surface. He is currently utilizing a walker. I can write oxycodone for pain as he has tramadol but it has not been very effective and he does not feel that he agrees with him. Should he have further symptoms he can follow-up with orthopedics or primary care. History & Record Review Discussion w/independent historian: Patient and Significant other Lab Data Attestation: I reviewed the patient's lab results. Labs: Laboratory Results - last 24 hr 10/11/24 09:13 WBC 10.1 RBC 4.12 L Hgb 11.7 L Hct 38.1 L MCV 92.5 MCH 28.4 MCHC 30.7 L RDW Std Deviation 47.3 H RDW Coeff of Beth 13.9 Plt Count 223 MPV 9.5 Immature Gran % (Auto) 0.300 Neut % (Auto) 85.3 H Lymph % (Auto) 4.8 L [place] % (Auto) 9.0 Eos % (Auto) 0.2 Baso % (Auto) 0.4 Absolute Neuts (auto) 8.6 H Absolute Lymphs (auto) 0.48 L Nucleated RBC % 0 PT 50.5 H INR 5.7 H* Sodium 138 Potassium 4.7 Chloride 106 Carbon Dioxide 29.0 Anion Gap 3 L BUN 21 H Creatinine 1.27 Estim Creat Clear Calc 47.16 Est GFR (MDRD) Af Amer 70 Est GFR (MDRD) Non-Af 58 L BUN/Creatinine Ratio 16.5 Glucose 159 H Calcium 9.1 EKG Initial EKG: Attestation: I personally reviewed and interpreted this EKG as follows: Comments: Normal sinus rhythm ventricular rate of 74 bpm Discharge Plan Triage Chief Complaint: Other, Pain/Inj ED Provider: Jimmy Kimball Dx/Rx/DC Orders Clinical Impression: Supratherapeutic INR, History of mechanical aortic valve replacement, Traumatic hematoma of right thigh, Acute pain of right thigh Instructions: ED Hematoma Prescriptions: New oxycodone 5 mg tablet 5 mg PO TID PRN (Reason: pain) 3 Days Qty: 12 0RF No Action [id number] [Centrum Silver Men] 300-600-300 mcg tablet 1 tab PO QDAY aspirin 81 mg tablet,delayed release (DR/EC) 81 mg PO QDAY pravastatin 40 MG tablet 40 mg PO DAILY Patient Comments: TAKE 1 TABLET BY MOUTH EVERY DAY amoxicillin 500 mg capsule 2,000 mg PO .COMPLEX Qty: 4 4RF Rx Instructions: 2,000 mg PO 1 hour prior to dental procedure; warfarin 2 mg tablet 2 mg PO .COMPLEX Qty: 70 11RF Protocol: Dose Management Condition: Tuesday Dose/Route: 4 mg Instruction: 2 x 2 mg tablets Condition: Tuesday Dose/Route: 4 mg Instruction: 2 x 2 mg tablets Condition: Tuesday Dose/Route: 6 mg Instruction: 3 x 2 mg tablets Condition: Tuesday Dose/Route: 4 mg Instruction: 2 x 2 mg tablets Condition: Dose/Route: 4 mg Instruction: 2 x 2 mg tablets Condition: Tuesday Dose/Route: 4 mg Instruction: 2 x 2 mg tablets Condition: Tuesday Dose/Route: 4 mg Instruction: 2 x 2 mg tablets Protocol Text: Adjustment Start Date: Tuesday09/18/24 INR Value: 2.8 INR Date: 09/18/24 Recheck Date: 10/18/24 Rx Instructions: 2 tabs (4mg) daily EXCEPT Tuesdays 3 tabs (6mg); or use as directed pantoprazole 40 mg tablet,delayed release (DR/EC) 40 mg PO DAILY Qty: 30 12RF cyclobenzaprine 5 mg tablet 5 mg PO TID PRN tramadol 50 mg tablet 50 mg PO TID PRN acetaminophen [Tylenol 8 Hour] 650 mg tablet extended release 650 mg PO Q12H PRN Primary Care Provider: Kameron Hayes Referrals: Kameron Hayes MD [Primary Care Provider] - Activity Restrictions/Additional Instructions: You need to have your INR checked on Tuesday. Please hold your Coumadin level tonight and tomorrow and resume normal dosing on Tuesday. I would recommend ice to the hematoma and 20-minute sessions 4-5 times per day for today and tomorrow. Please monitor for any changes. You may try oxycodone for pain but as discussed this could also cause sedation constipation nausea etc. Discontinue if it is not agreeing with you Please do not take the tramadol and the oxycodone together or on the same day that you are utilizing pain medication as they can have additive effects. Please utilize your walker for support while ambulating. Print Language: Georgian Disposition Disposition: Home, Self Care
[2024-10-11 09:24] LABS: Absolute Lymphocyte Count 0.48 X10^3/uL (0.83-4.51); Absolute Neutrophil Count 8.6 X10^3/uL (2.0-7.7); Basophil# 0.04 X10^3/uL; Basophil% 0.4 % (0-1); Eosinophil# 0.02 X10^3/uL; Eosinophils% 0.2 % (0-5); Hematocrit 38.1 % (40-54); Hemoglobin 11.7 g/dL (13.0-16.5); Lymphocyte # 0.48 X10^3/ul (0.83-4.51); Lymphocyte % 4.8 % (19-41); Mean Corp Hgb Conc 30.7 g/dL (32-36); Mean Corpuscular Hgb 28.4 pg (27.0-32.0); Mean Corpuscular Volume 92.5 fL (80-94); Mean Platelet Vol. 9.5 fl (6.2-12.0); Monocyte# 0.91 X10^3/uL; NRBC Flagged by Analyzer 0 % (0-5); Neutrophil # 8.58 X10^3/uL (2.7-7.7); Neutrophil % 85.3 % (47-70); POSITIVE DIFFERENTIAL YES; Platelet Count 223 K/mm3 (150-450); RBC Distribution Width CV 13.9 % (11.6-14.6); RBC Distribution Width SD 47.3 fl (35.1-43.9); Red Blood Count 4.12 M/mm3 (4.6-6.2); White Blood Count 10.1 K/mm3 (4.4-11.0)
[2024-10-11 09:37] LABS: Anion Gap 3 (5-15); BUN 21 mg/dL (7-18); BUN/Creat Ratio 16.5 RATIO (10-20); Calcium,Total 9.1 mg/dL (8.5-10.1); Chloride 106 mmol/L (98-107); Creatinine, Serum 1.27 mg/dL (0.70-1.30); EST Glomerular Filtration Rate 58 mL/min (>60); Est Glom Filt Rate - Afr Amer 70 mL/min (>60); Estimated Creatinine Clearance 47.16 ml/min; Glucose 159 mg/dL (74-106); Potassium 4.7 mmol/L (3.5-5.1); Sodium Level 138 mmol/L (136-145)
[2024-10-11 09:43] LABS: Prothrombin Time (Protime)PT. 50.5 SECONDS (11.7-14.9)
[2024-10-11 09:44] LABS: International Normalized Ratio 5.7
--- NOTE | 2024-10-11 10:11 | RAD_ITS ---
STUDY: X-RAY - RIGHT FEMUR REASON FOR STUDY: Male, 79 years old. Swelling and pain TECHNIQUE: 5 view(s) of the femur. COMPARISON: None. FINDINGS: Status post intramedullary shona fixation device. Healed mid femoral fracture. Findings suggestive of myositis ossificans in the surrounding soft tissues. RAD/Femur Min 2 Views IMPRESSION: Healed mid femoral fracture. 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 Electronically Signed: Wilder Whalen MD at 10:46 EST ,
[2024-10-11 10:51] VITALS: BP 138/66; PULSE 78; RESP 16; TEMP 36.6; O2SAT 99
== END 2024-10-11 10:51 | disposition home or self-care (01) ==
PROVIDERS: Emergency Provider Emergency Medicine; PCP Family Medicine; Visit Provider Emergency Medicine
DX: M79.651 Pain in right thigh (principal); I48.91 Unspecified atrial fibrillation; I25.10 Atherosclerotic heart disease of native coronary artery without angina pectoris; E78.5 Hyperlipidemia, unspecified; R79.1 Abnormal coagulation profile; I10 Essential (primary) hypertension; Z79.01 Long term (current) use of anticoagulants; Z95.2 Presence of prosthetic heart valve; Z79.899 Other long term (current) drug therapy; Z90.49 Acquired absence of other specified parts of digestive tract; S70.11XA Contusion of right thigh, initial encounter; X58.XXXA Exposure to other specified factors, initial encounter; Y93.89 Activity, other specified
CPT/HCPCS: 73552; 80048; 85025; 85610; 93005; 99285

== ENCOUNTER → 2024-10-15 | Outpatient (CLI) | payer MEDICARE, OTHER, SELFPAY ==
--- NOTE | 2024-10-15 15:05 | VDLE_ITS ---
Reason For Study: Right leg pain RIGHT LEFT GSV is normal. CFV is compressible, spontaneous, phasic, CFV is compressible, spontaneous, phasic, competent, and demonstrates normal competent and demonstrates normal augmentation. augmentation. FV is compressible, spontaneous, phasic, competent and demonstrates normal augmentation. POP V is compressible, spontaneous, phasic, competent and demonstrates normal augmentation. T/P Trunk is compressible. PTV is compressible. RT PerV is compressible. Procedure This is a venous duplex using B-mode, color flow and spectral Doppler. Exam performed in department. A preliminary report was called and/or faxed to Dr. Hayes. VL/Venous Duplex US, Unilateral Interpretation Summary Deep veins of the right lower extremity are patent and compressible segmentally . There is no evidence of right lower extremity deep vein thrombosis. The right great sapheno us vein appears patent and compressible segmentally. Ordering Physician: Kameron Hayes Referring Physician: Kameron Hayes Performed By: Sandra Bedoya RVT
[2024-10-15 16:35] LABS: Absolute Lymphocyte Count 0.66 X10^3/uL (0.83-4.51); Absolute Neutrophil Count 6.6 X10^3/uL (2.0-7.7); Basophil# 0.04 X10^3/uL; Basophil% 0.5 % (0-1); Eosinophil# 0.06 X10^3/uL; Eosinophils% 0.7 % (0-5); Hematocrit 33.2 % (40-54); Hemoglobin 10.2 g/dL (13.0-16.5); Lymphocyte # 0.66 X10^3/ul (0.83-4.51); Mean Corp Hgb Conc 30.7 g/dL (32-36); Mean Corpuscular Hgb 28.7 pg (27.0-32.0); Mean Corpuscular Volume 93.5 fL (80-94); Monocyte% 10.9 % (0-10); NRBC Flagged by Analyzer 0 % (0-5); Neutrophil # 6.55 X10^3/uL (2.7-7.7); Neutrophil % 79.2 % (47-70); Platelet Count 270 K/mm3 (150-450); RBC Distribution Width CV 14.2 % (11.6-14.6); Red Blood Count 3.55 M/mm3 (4.6-6.2); White Blood Count 8.3 K/mm3 (4.4-11.0)
== END | disposition home or self-care (01) ==
PROVIDERS: PCP Family Medicine; Referring Provider Family Medicine; Visit Provider Family Medicine
DX: M79.604 Pain in right leg (principal)
CPT/HCPCS: 36415; 85025; 93971

== ENCOUNTER → 2024-10-15 | Outpatient (CLI) | payer MEDICARE, OTHER, SELFPAY ==
[2024-10-15 11:51] LABS: International Normalized Ratio 2.6
== END | disposition home or self-care (01) ==
LOC: LAB 09:44
PROVIDERS: PCP Family Medicine; Visit Provider Internal Medicine Cardiovascular Disease
DX: Z79.01 Long term (current) use of anticoagulants (principal)
CPT/HCPCS: 36415; 85610

== ENCOUNTER → 2024-10-22 | Outpatient (CLI) | payer MEDICARE, OTHER, SELFPAY ==
[2024-10-22 10:54] LABS: International Normalized Ratio 3.2; Prothrombin Time (Protime)PT. 32.9 SECONDS (11.7-14.9)
== END | disposition home or self-care (01) ==
LOC: LAB 09:20
PROVIDERS: PCP Family Medicine; Visit Provider Internal Medicine Cardiovascular Disease
DX: Z79.01 Long term (current) use of anticoagulants (principal)
CPT/HCPCS: 36415; 85610

== ENCOUNTER 2024-11-06 08:44 | Outpatient (RCR) | payer MEDICARE, OTHER, SELFPAY ==
[2024-09-20 21:05] VITALS: BMI 25.5
[2024-11-06 10:00] LABS: International Normalized Ratio 3.1; Prothrombin Time (Protime)PT. 31.6 SECONDS (11.7-14.9)
== END 2024-11-06 18:00 | disposition home or self-care (01) ==
LOC: MTLAB 08:44
PROVIDERS: Family Provider Family Medicine; PCP Family Medicine; Referring Provider Physician Assistant Medical; Visit Provider Physician Assistant Medical
DX: Z79.01 Long term (current) use of anticoagulants (principal); Z95.2 Presence of prosthetic heart valve
CPT/HCPCS: 36415; 85610

== ENCOUNTER 2024-12-17 09:15 | Outpatient (RCR) | payer MEDICARE, OTHER, SELFPAY ==
[2024-11-21 05:09] VITALS: BMI 25.5
[2024-12-03 11:51] LABS: International Normalized Ratio 3.2; Prothrombin Time (Protime)PT. 33.2 SECONDS (11.7-14.9)
[2024-12-17 10:49] LABS: International Normalized Ratio 2.8; Prothrombin Time (Protime)PT. 30.3 SECONDS (11.7-14.9)
== END 2024-12-17 18:00 | disposition home or self-care (01) ==
LOC: MTLAB 09:15
PROVIDERS: Family Provider Family Medicine; PCP Family Medicine; Referring Provider Physician Assistant Medical; Visit Provider Physician Assistant Medical
DX: Z79.01 Long term (current) use of anticoagulants (principal); Z95.2 Presence of prosthetic heart valve

== ENCOUNTER 2025-01-15 08:18 | Outpatient (RCR) | payer MEDICARE, OTHER, SELFPAY ==
[2024-12-22 02:15] VITALS: BMI 25.5
[2025-01-15 11:18] LABS: International Normalized Ratio 2.4; Prothrombin Time (Protime)PT. 26.7 SECONDS (11.7-14.9)
== END 2025-01-18 18:00 | disposition home or self-care (01) ==
LOC: MTLAB 08:18
PROVIDERS: Family Provider Family Medicine; PCP Family Medicine; Referring Provider Physician Assistant Medical; Visit Provider Physician Assistant Medical
DX: Z79.01 Long term (current) use of anticoagulants (principal); Z95.2 Presence of prosthetic heart valve
CPT/HCPCS: 36415; 85610

== ENCOUNTER 2025-02-12 09:42 | Outpatient (RCR) | payer MEDICARE, OTHER, SELFPAY ==
[2025-01-19 07:30] VITALS: BMI 25.5
[2025-02-12 16:00] LABS: Prothrombin Time (Protime)PT. 43.3 SECONDS (11.7-14.9)
[2025-02-12 16:28] LABS: International Normalized Ratio 4.4
== END 2025-02-12 18:00 | disposition home or self-care (01) ==
LOC: MTLAB 09:42
PROVIDERS: Family Provider Family Medicine; PCP Family Medicine; Referring Provider Physician Assistant Medical; Visit Provider Physician Assistant Medical
DX: Z79.01 Long term (current) use of anticoagulants (principal); Z95.2 Presence of prosthetic heart valve; I48.0 Paroxysmal atrial fibrillation
CPT/HCPCS: 36415; 85610

== ENCOUNTER → 2025-02-18 | Outpatient (CLI) | payer MEDICARE, OTHER, SELFPAY ==
[2025-02-18 15:25] LABS: Absolute Neutrophil Count 7.4 X10^3/uL (2.0-7.7); Basophil# 0.06 X10^3/uL; Basophil% 0.6 % (0-1); Eosinophil# 0.17 X10^3/uL; Eosinophils% 1.8 % (0-5); Hematocrit 27.8 % (40-54); Hemoglobin 8.1 g/dL (13.0-16.5); Lymphocyte % 9.4 % (19-41); Mean Corp Hgb Conc 29.1 g/dL (32-36); Mean Corpuscular Hgb 27.5 pg (27.0-32.0); Mean Corpuscular Volume 94.2 fL (80-94); Mean Platelet Vol. 10.2 fl (6.2-12.0); Monocyte# 0.99 X10^3/uL; Monocyte% 10.3 % (0-10); NRBC Flagged by Analyzer 0.3 % (0-5); Neutrophil # 7.36 X10^3/uL (2.7-7.7); Neutrophil % 76.5 % (47-70); Platelet Count 437 K/mm3 (150-450); RBC Distribution Width CV 18.8 % (11.6-14.6); RBC Distribution Width SD 59.7 fl (35.1-43.9); Red Blood Count 2.95 M/mm3 (4.6-6.2); White Blood Count 9.6 K/mm3 (4.4-11.0)
[2025-02-18 15:35] LABS: International Normalized Ratio 2.5; Prothrombin Time (Protime)PT. 27.6 SECONDS (11.7-14.9)
== END | disposition home or self-care (01) ==
LOC: MTLAB 14:07
PROVIDERS: PCP Family Medicine; Referring Provider Family Medicine; Visit Provider Family Medicine
DX: T14.8XXA Other injury of unspecified body region, initial encounter (principal); Z79.01 Long term (current) use of anticoagulants; Z95.2 Presence of prosthetic heart valve
CPT/HCPCS: 36415; 85025; 85610

== ENCOUNTER → 2025-02-21 | Outpatient (CLI) | payer MEDICARE, OTHER, SELFPAY ==
[2025-02-21 16:17] LABS: Absolute Lymphocyte Count 0.96 X10^3/uL (0.83-4.51); Absolute Neutrophil Count 6.1 X10^3/uL (2.0-7.7); Basophil# 0.06 X10^3/uL; Basophil% 0.7 % (0-1); Eosinophil# 0.19 X10^3/uL; Eosinophils% 2.3 % (0-5); Hemoglobin 8.1 g/dL (13.0-16.5); Lymphocyte # 0.96 X10^3/ul (0.83-4.51); Lymphocyte % 11.6 % (19-41); Mean Corp Hgb Conc 28.9 g/dL (32-36); Mean Corpuscular Hgb 27.9 pg (27.0-32.0); Mean Corpuscular Volume 96.6 fL (80-94); Mean Platelet Vol. 10.6 fl (6.2-12.0); Monocyte# 0.85 X10^3/uL; Monocyte% 10.3 % (0-10); NRBC Flagged by Analyzer 0 % (0-5); Neutrophil # 6.09 X10^3/uL (2.7-7.7); Neutrophil % 73.9 % (47-70); POSITIVE MORPHOLOGY YES; Platelet Count 387 K/mm3 (150-450); RBC Distribution Width CV 19.6 % (11.6-14.6); RBC Distribution Width SD 66.2 fl (35.1-43.9); White Blood Count 8.3 K/mm3 (4.4-11.0)
[2025-02-21 17:40] LABS: Differential Indicated SCAN CRITERIA MET
[2025-02-21 22:00] LABS: Anisocytosis 1+; Burr Cells 1+; Polychromasia 2+
== END | disposition home or self-care (01) ==
LOC: MTLAB 11:43
PROVIDERS: PCP Family Medicine; Referring Provider Family Medicine; Visit Provider Family Medicine
DX: T14.8XXA Other injury of unspecified body region, initial encounter (principal)
CPT/HCPCS: 36415; 85025

== ENCOUNTER 2025-03-08 09:15 | Outpatient (RCR) | payer MEDICARE, OTHER, SELFPAY ==
[2025-02-18 23:10] VITALS: BMI 25.5
[2025-03-08 12:36] LABS: Absolute Lymphocyte Count 0.67 X10^3/uL (0.83-4.51); Absolute Neutrophil Count 2.8 X10^3/uL (2.0-7.7); Basophil# 0.06 X10^3/uL; Basophil% 1.3 % (0-1); Eosinophil# 0.27 X10^3/uL; Hematocrit 33.6 % (40-54); Hemoglobin 9.9 g/dL (13.0-16.5); Lymphocyte # 0.67 X10^3/ul (0.83-4.51); Lymphocyte % 14.9 % (19-41); Mean Corp Hgb Conc 29.5 g/dL (32-36); Mean Corpuscular Hgb 27.8 pg (27.0-32.0); Mean Corpuscular Volume 94.4 fL (80-94); Mean Platelet Vol. 10.2 fl (6.2-12.0); Monocyte# 0.63 X10^3/uL; NRBC Flagged by Analyzer 0 % (0-5); Neutrophil # 2.84 X10^3/uL (2.7-7.7); Neutrophil % 63.1 % (47-70); Platelet Count 285 K/mm3 (150-450); RBC Distribution Width CV 18.4 % (11.6-14.6); RBC Distribution Width SD 63.9 fl (35.1-43.9); Red Blood Count 3.56 M/mm3 (4.6-6.2); White Blood Count 4.5 K/mm3 (4.4-11.0)
[2025-03-08 12:45] LABS: International Normalized Ratio 2.6; Prothrombin Time (Protime)PT. 28.6 SECONDS (11.7-14.9)
== END 2025-03-20 18:00 | disposition home or self-care (01) ==
LOC: MTLAB 09:15
PROVIDERS: Family Provider Family Medicine; PCP Family Medicine; Referring Provider Physician Assistant Medical; Visit Provider Physician Assistant Medical
DX: Z79.01 Long term (current) use of anticoagulants (principal); Z95.2 Presence of prosthetic heart valve; D64.9 Anemia, unspecified
CPT/HCPCS: 36415; 85025; 85610

== ENCOUNTER → 2025-04-02 | Outpatient (CLI) | payer MEDICARE, OTHER, SELFPAY ==
--- NOTE | 2025-04-02 12:46 | VDLE_ITS ---
Reason For Study Reason For Study: Bilateral leg swelling RIGHT LEFT GSV is normal. GSV is normal. CFV is compressible, spontaneous, phasic, competent CFV is compressible, spontaneous, phasic, competent, and demonstrates normal augmentation. and demonstrates normal augmentation. FV is compressible, spontaneous, phasic, competent FV is compressible, spontaneous, phasic, competent and demonstrates normal augmentation. and demonstrates normal augmentation. POP V is compressible, spontaneous, phasic, competent POP V is compressible, spontaneous, phasic, competent and demonstrates normal augmentation. and demonstrates normal augmentation. T/P Trunk is compressible. T/P Trunk is compressible. PTV is compressible. PTV is compressible. RT PerV is compressible. LT PerV is compressible. Procedure This is a venous duplex using B-mode, color flow and spectral Doppler. Exam performed in department. A preliminary report was called and/or faxed to Dr. Pacheco. VL/Venous Duplex US - Rene Extrem Interpretation Summary Deep veins of the lower extremities are bilaterally patent and compressible seg mentally. There is no evidence of deep vein thrombosis on either side. Valvular competence appears intact within the p roximal deep venous systems bilaterally. The great saphenous veins appear bilaterally patent and compressible segmentall y. Ordering Physician: Albert Pacheco Referring Physician: Kameron Hayes Performed By: Sandra Bedoya RVT
== END | disposition home or self-care (01) ==
LOC: CVS 12:42
PROVIDERS: PCP Family Medicine; Referring Provider Podiatrist; Visit Provider Podiatrist
DX: M79.661 Pain in right lower leg (principal); M79.662 Pain in left lower leg; M79.89 Other specified soft tissue disorders
CPT/HCPCS: 93970

== ENCOUNTER 2025-04-05 08:38 | Outpatient (RCR) | payer MEDICARE, OTHER, SELFPAY ==
[2025-03-20 22:24] VITALS: BMI 25.5
[2025-04-05 10:37] LABS: Basophil# 0.07 X10^3/uL; Basophil% 1.4 % (0-1); Eosinophil# 0.25 X10^3/uL; Hematocrit 38.8 % (40-54); Hemoglobin 11.6 g/dL (13.0-16.5); Lymphocyte % 21.8 % (19-41); Mean Corp Hgb Conc 29.9 g/dL (32-36); Mean Corpuscular Volume 93.7 fL (80-94); Mean Platelet Vol. 10.2 fl (6.2-12.0); Monocyte# 0.64 X10^3/uL; Monocyte% 12.7 % (0-10); NRBC Flagged by Analyzer 0 % (0-5); Neutrophil # 2.97 X10^3/uL (2.7-7.7); Neutrophil % 58.9 % (47-70); Platelet Count 198 K/mm3 (150-450); RBC Distribution Width CV 17.1 % (11.6-14.6); RBC Distribution Width SD 60.1 fl (35.1-43.9); Red Blood Count 4.14 M/mm3 (4.6-6.2)
[2025-04-05 11:20] LABS: Prothrombin Time (Protime)PT. 31.6 SECONDS (11.7-14.9)
[2025-04-05 11:40] LABS: Iron 46 ug/dL (65-175)
== END 2025-04-05 18:00 | disposition home or self-care (01) ==
LOC: MTLAB 08:38
PROVIDERS: Family Provider Family Medicine; PCP Family Medicine; Referring Provider Physician Assistant Medical; Visit Provider Physician Assistant Medical
DX: Z79.01 Long term (current) use of anticoagulants (principal); Z95.2 Presence of prosthetic heart valve; D64.9 Anemia, unspecified
CPT/HCPCS: 36415; 83540; 85025; 85610

== ENCOUNTER 2025-05-03 09:44 | Outpatient (RCR) | payer MEDICARE, OTHER, SELFPAY ==
[2025-04-21 19:12] VITALS: BMI 25.5
[2025-05-03 10:30] LABS: International Normalized Ratio 3.2; Prothrombin Time (Protime)PT. 33.3 SECONDS (11.7-14.9)
== END 2025-05-03 18:00 | disposition home or self-care (01) ==
LOC: MTLAB 09:44
PROVIDERS: Family Provider Family Medicine; PCP Family Medicine; Referring Provider Physician Assistant Medical; Visit Provider Physician Assistant Medical
DX: Z79.01 Long term (current) use of anticoagulants; Z95.2 Presence of prosthetic heart valve
CPT/HCPCS: 36415; 85610

== ENCOUNTER 2025-05-29 08:57 | Outpatient (RCR) | payer MEDICARE, OTHER, SELFPAY ==
[2025-05-29 10:50] LABS: Hematocrit 43.1 % (40-54); Hemoglobin 13.2 g/dL (13.0-16.5); Immature Granulocytes Count 0.020 X10^3/uL (0.0-0.0); Mean Corp Hgb Conc 30.6 g/dL (32-36); Mean Corpuscular Volume 91.1 fL (80-94); Mean Platelet Vol. 10.3 fl (6.2-12.0); NRBC Flagged by Analyzer 0 % (0-5); Platelet Count 213 K/mm3 (150-450); RBC Distribution Width CV 15.0 % (11.6-14.6); RBC Distribution Width SD 50.3 fl (35.1-43.9); Red Blood Count 4.73 M/mm3 (4.6-6.2); White Blood Count 6.3 K/mm3 (4.4-11.0)
[2025-05-29 11:21] LABS: Prothrombin Time (Protime)PT. 30.5 SECONDS (11.7-14.9)
[2025-05-29 12:02] LABS: Ferritin 170 ng/mL (37-417)
[2025-05-29 15:17] LABS: Iron 30 ug/dL (65-175); Iron Binding Capacity,Total 294 ug/dL (250-450); Iron Binding Capacity,Unsat 264 ug/dL (228-428)
== END 2025-06-20 18:00 | disposition home or self-care (01) ==
LOC: MTLAB 08:57
PROVIDERS: Family Provider Family Medicine; PCP Family Medicine; Referring Provider Physician Assistant Medical; Visit Provider Physician Assistant Medical
DX: D64.9 Anemia, unspecified (principal); Z79.01 Long term (current) use of anticoagulants
CPT/HCPCS: 36415; 82728; 83540; 83550; 85025; 85610

== ENCOUNTER 2025-06-27 08:41 | Outpatient (RCR) | payer MEDICARE, OTHER, SELFPAY ==
[2025-06-27 10:40] LABS: Prothrombin Time (Protime)PT. 29.7 SECONDS (11.7-14.9)
== END 2025-06-27 18:00 | disposition home or self-care (01) ==
LOC: MTLAB 08:41
PROVIDERS: Family Provider Family Medicine; PCP Family Medicine; Referring Provider Physician Assistant Medical; Visit Provider Physician Assistant Medical
DX: Z79.01 Long term (current) use of anticoagulants; Z95.2 Presence of prosthetic heart valve
CPT/HCPCS: 36415; 85610

== ENCOUNTER 2025-07-25 08:36 | Outpatient (RCR) | payer MEDICARE, OTHER, SELFPAY ==
[2025-07-25 10:49] LABS: Prothrombin Time (Protime)PT. 31.2 SECONDS (11.7-14.9)
== END 2025-08-20 18:00 | disposition home or self-care (01) ==
LOC: MTLAB 08:36
PROVIDERS: Family Provider Family Medicine; PCP Family Medicine; Referring Provider Physician Assistant Medical; Visit Provider Physician Assistant Medical
DX: Z79.01 Long term (current) use of anticoagulants; Z95.2 Presence of prosthetic heart valve
CPT/HCPCS: 36415; 85610

== ENCOUNTER 2025-08-22 08:45 | Outpatient (RCR) | payer MEDICARE, OTHER, SELFPAY ==
[2025-08-22 10:32] LABS: Prothrombin Time (Protime)PT. 36.4 SECONDS (11.7-14.9)
== END 2025-08-22 18:00 | disposition home or self-care (01) ==
LOC: MTLAB 08:45
PROVIDERS: Family Provider Family Medicine; PCP Family Medicine; Referring Provider Physician Assistant Medical; Visit Provider Physician Assistant Medical
DX: Z79.01 Long term (current) use of anticoagulants; Z95.2 Presence of prosthetic heart valve
CPT/HCPCS: 36415; 85610

== ENCOUNTER 2025-09-24 09:19 | Outpatient (RCR) | payer MEDICARE, OTHER, SELFPAY ==
[2025-09-24 12:29] LABS: Prothrombin Time (Protime)PT. 31.0 SECONDS (11.7-14.9)
== END 2025-10-19 18:00 | disposition home or self-care (01) ==
LOC: MTLAB 09:19
PROVIDERS: Family Provider Family Medicine; PCP Family Medicine; Referring Provider Physician Assistant Medical; Visit Provider Physician Assistant Medical
DX: I48.91 Unspecified atrial fibrillation (principal)
CPT/HCPCS: 36415; 85610

== ENCOUNTER → 2025-10-15 | Outpatient (CLI) | payer MEDICARE, OTHER, SELFPAY ==
--- NOTE | 2025-10-15 12:40 | ECHOD_ITS ---
Reason For Study Reason For Study: Mechanical AV Procedure This was a 2D Doppler, Color Flow transthoracic echocardiogram. Exam performed in department. Left Ventricle Normal LV size. The left ventricular ejection fraction is 55 %. No regional wall motion abnormalities noted. Right Ventricle Normal RV size. Normal systolic function. Atria Normal left atrium. Normal right atrium. Mitral Valve Normal mitral valve. Tricuspid Valve Normal tricuspid valve. Mild (1+) tricuspid valve insufficiency. Pulmonary artery systolic pressure is 28 mmHg. Aortic Valve Mean aortic valve gradient 4 mmHg. Stable appearing mechanical aortic valve apparatus. Pulmonic Valve Normal pulmonic valve. Great Vessels Normal aortic root. The pulmonary artery is normal size. Inferior vena cava collapse with respiration. Pericardium/Pleural No pericardial effusion. MMode/2D Measurements & Calculations LVIDd: 5.6 cm IVSd: 0.87 cm LVOT diam: 2.0 cm LVIDs: 3.6 cm LVPWd: 1.2 cm LVOT area: 3.2 cm2 RVDd: 4.5 cm FS: 35.5 % LAV(MOD-bp): 61.4 ml LVAd ap4: 31.6 cm2 SV(MOD-sp4): 54.9 ml LAV(MOD-bp) Indexed: 31.2 ml/m2 LVLd ap4: 8.0 cm SI(MOD-sp4): 27.9 ml/m2 LAV(MOD-sp2): 63.6 ml EDV(MOD-sp4): 101.7 ml LAV(MOD-sp4): 59.4 ml EDV(sp4-el): 106.3 ml LVAs ap4: 19.2 cm2 LVLs ap4: 6.7 cm ESV(MOD-sp4): 46.7 ml ESV(sp4-el): 46.9 ml EF(MOD-sp4): 54.0 % EF(sp4-el): 55.9 % SV(sp4-el): 59.4 ml LA A4 area: 20.3 cm2 LA dimension(2D): 4.4 cm RA A4 area: 20.8 cm2 TAPSE: 1.1 cm Time Measurements MV dec time: 0.31 sec Doppler Measurements & Calculations MV E max jeffrey: 66.0 cm/sec Lat Peak E' Jeffrey: 9.7 cm/sec Med Peak E' Jeffrey: 5.9 cm/sec MV A max jeffrey: 71.9 cm/sec E/E' lat: 6.8 E/E' med: 11.2 MV E/A: 0.92 MV V2 max: 84.4 cm/sec MV P1/2t max jeffrey: 79.6 cm/sec Ao V2 max: 130.8 cm/sec MV max P.9 mmHg MV P1/2t: 114.9 msec Ao max P.9 mmHg MV V2 mean: 42.9 cm/sec Ao V2 mean: 91.0 cm/sec MV mean P.90 mmHg MV dec slope: 202.9 cm/sec2 Ao mean P.9 mmHg MV V2 VTI: 35.6 cm MVA(P1/2t): 1.9 cm2 Ao V2 VTI: 30.5 cm AV (velocity ratio): 0.63 MVA(VTI): 1.7 cm2 AARON(I,D): 2.0 cm2 AARON(V,D): 1.7 cm2 LV V1 max: 69.1 cm/sec MR max jeffrey: 560.8 cm/sec SV(LVOT): 62.1 ml LV V1 max P.9 mmHg MR max P.8 mmHg LV V1 mean P.1 mmHg LV V1 mean: 49.8 cm/sec LV V1 VTI: 19.3 cm PA V2 max: 94.4 cm/sec TR max jeffrey: 246.8 cm/sec TR max P.4 mmHg ECHO/Echo Complete Interpretation Summary The left ventricular ejection fraction is 55 %. Normal LV size. Stable appearing mechanical aortic valve apparatus. Mean aortic valve gradient 4 mmHg. Pulmonary artery systolic pressure is 28 mmHg. Ordering Physician: Dewayne Betts Referring Physician: Dewayne Betts Performed By: Derek Bhakta RCS
== END | disposition home or self-care (01) ==
LOC: CVS 12:40
PROVIDERS: PCP Family Medicine; Referring Provider Nurse Practitioner Family; Visit Provider Nurse Practitioner Family
DX: Z95.2 Presence of prosthetic heart valve (principal); Z98.890 Other specified postprocedural states
CPT/HCPCS: 93306

== ENCOUNTER 2025-11-18 08:20 | Outpatient (RCR) | payer MEDICARE, OTHER, SELFPAY ==
[2025-10-21 10:40] LABS: Prothrombin Time (Protime)PT. 29.6 SECONDS (11.7-14.9)
[2025-11-18 10:48] LABS: Prothrombin Time (Protime)PT. 28.1 SECONDS (11.7-14.9)
== END 2025-11-18 18:00 | disposition home or self-care (01) ==
LOC: MTLAB 08:20
PROVIDERS: Family Provider Family Medicine; PCP Family Medicine; Referring Provider Physician Assistant Medical; Visit Provider Physician Assistant Medical
DX: D64.9 Anemia, unspecified (principal); Z79.01 Long term (current) use of anticoagulants; Z95.2 Presence of prosthetic heart valve
CPT/HCPCS: 36415; 85610